=== PATIENT | female | born 1940 | race African-American/Black ===

== ENCOUNTER 2016-06-03 13:00 | Inpatient (IN) ==
[2016-06-03 15:00] LABS: Apearance,Urine CLEAR (Clear); Bilirubin,Urine Negative (Negative); Blood, Urine Negative (Negative); Glucose,Urine (UA) 50 mg/dL (Negative); Hyaline Casts,Urine 28 /LPF (0-3); Ketones,Urine 5 mg/dL (Negative); Mucus,Urine Occasional /LPF (Occasional); Nitrite,Urine Negative (Negative); Protein,Urine Negative; RBC,Urine 1 /HPF (0-4); Squamous Epithelial Cell,Urine Occasional /HPF (0-10); Urine Color Yellow (Yellow); Urine Specific Gravity 1.019 (1.001-1.035); Urine Urobilinogen < 2.0 EU/DL (0.2-1.0); WBC,Urine <1 /HPF (0-6)
[2016-06-03 15:00] LABS: Basophils % 0.3 % (0.0-0.8); Eosinophils # 0.1 10*3/uL (0.0-0.87); Eosinophils % 1.7 % (0.00-10.9); Hematocrit 37.4 VOL% (35.7-47.0); Immature Granulocytes % 0.3 %; Immature Granulocytes Absolute 0.02 #; Lymphocytes # 2.9 10*3/uL (1.4-4.0); Lymphocytes % 38.1 % (21.3-54.2); Mean Corpuscular HGB Conc 32.1 GM/DL (32-36); Mean Corpuscular Hemoglobin 28 PG (27-34); Mean Platelet Volume 11.4 FL (9.6-12.0); Monocytes # 0.7 10*3/uL (0.11-0.8); Monocytes % 9.1 % (1.7-12.7); Neutrophils # 3.8 10*3/uL (1.4-7.4); Neutrophils % 50.5 % (38.7-73.9); Platelet Count 228 T/CUMM (130-400); Red Blood Count 4.35 MC/CUMM (3.8-5.5); White Blood Count 7.5 T/CUMM (4-12)
[2016-06-03 15:13] LABS: Albumin 3.3 G/DL (3.4-5.0); Bilirubin,Total 0.4 MG/DL (0.2-1.0); Calcium 8.2 MG/DL (8.5-10.1); Potassium 5.8 MMOL/L (3.5-5.1); Total Protein 6.5 G/DL (6.4-8.3)
--- NOTE | 2016-06-03 15:42 | Emergency Department Note ---
Arrival - Arrival Chief Complaint: Urogenital - Female Stated Complaint: abd swollen and painful ED Nursing Triage Note: PT C/O LOWER ABD PAIN AND LOWER BACK PAIN. PT STATES SHE IS UNABLE TO VOID. STATES VOIDED ONCE YESTERDAY AND ONCE THIS AM. DENIES DYSURIA OR HEMATURIA. PT STATES HAS BEEN TAKING BACTRIM SHE HAS AT HOME. Mode of Arrival: Wheelchair Limitations: No Limitations Source: Patient, Family Time Seen by Provider: 06/03/16 13:49 - History of Present Illness HPI Narrative: 75yo black female presents to ED with CC of unable to void x 1 day, she voided once yesterday and once this morning prior to coming to the ED. Accompanied by family member. Symptoms are constant, she denies dysuria or hematuria. She describes the pain as a 6 on a 1-10 scale. [PCP is ALLEN Sandoval. Pt has not consulted PCP about these symptoms. PMHx significant for hypertension, coronary artery disease, with CABG about 12 years ago, insulin-dependent diabetes mellitus. Patient is on a daily dose of Bactrim DS for an unknown reason. Has some constipation, last BM last night, it was normal. Complaining of some abdominal distention and slight abdominal pain. Allergies/Adverse Reactions: Allergies Allergy/AdvReac Type Severity Reaction Status Date / Time No Known Allergies Allergy Verified 06/03/16 13:12 Home Medications: Home Medications Medication Instructions Recorded Confirmed Type Potassium Chloride 20 meq PO DAILY 08/31/15 06/03/16 History Lubiprostone [Amitiza] 24 mcg PO BID 12/05/15 06/03/16 History Pregabalin [Lyrica] 100 mg PO TID PRN 12/05/15 06/03/16 History traZODone [Desyrel] 50 mg PO BEDTIME PRN 12/05/15 06/03/16 History Cetirizine HCl [Cetirizine Tab] 10 mg PO DAILY 02/15/16 06/03/16 History Insulin Aspart Prot/Asp 70/30 20 unit SUBCUT AC BREAKFAST 02/15/16 06/03/16 History [NovoLOG Mix 70/30] Insulin Aspart Prot/Asp 70/30 30 unit SUBCUT AC SUPPER 02/15/16 06/03/16 History [NovoLOG Mix 70/30] Aspirin EC Tab 81 mg PO DAILY #30 tablet 02/16/16 06/03/16 Rx Furosemide Tab [Lasix Tab] 40 mg PO DAILY 05/11/16 06/03/16 History Hydrocodone/Acetaminophen 1 tablet PO BID PRN 05/11/16 06/03/16 History [Hydrocodon-Acetaminoph 7.5-325] Isosorbide Mononitrate [Isosorbide 90 mg PO DAILY 05/11/16 06/03/16 History Mononitrate ER] Meloxicam [Meloxicam] 15 mg PO DAILY 05/11/16 06/03/16 History Lisinopril 10 mg PO DAILY 06/03/16 06/03/16 History Rivastigmine 4.6 mg/24Hr Patch 1 patch TRANSDERM DAILY 06/03/16 06/03/16 History [Exelon 4.6 mg/24 hr Patch] Tizanidine HCl [Zanaflex] 4 mg PO DIRECTED PRN 06/03/16 06/03/16 History Review of System - Review of System 12 point system: reviewed and no additional remarkable complaints except as stated - Review of System Gastrointestinal: Present: abdominal pain, other Genitourinary female: Present: other (oligouria) Medical,Surgical,& Family Hx - Medical History Cardio: History of: CAD (CABG 12 years ago), Hypertension Neurology: No history of: Seizures Endocrine: History of: Diabetes Mellitus (IDDM) Musculoskeletal: History of: Musculoskeletal Problems - Surgical History Cardiac Surgeries: Sugical HX of: Cardiac Surgery (CABG x 12 yrs ago) - Social History Smoking Status: Never smoker Frequency of Alcohol Use: None Type of Drug Use: None Functional capacity: independent ambulation Exam Physical Examination: Exam - General General appearance: alert, in no apparent distress - Head Head exam: Present: atraumatic, normocephalic - Eye Eye exam: Present: normal appearance, PERRL, EOMI - ENT ENT exam: Present: normal exam, normal oropharynx, mucous membranes moist - Neck Neck exam: Present: normal inspection, full ROM - Chest Chest inspection: Present: normal inspection, symmetric chest wall rise - Respiratory Respiratory exam: Present: normal lung sounds bilaterally. Absent: rales, rhonchi, wheezes - Cardiovascular Cardiovascular exam: Present: regular rate, normal rhythm, normal heart sounds - Abdominal Exam Abdominal exam: Present: soft, normal bowel sounds. slight distension present, slight tenderness to palpation - Extremities Exam Extremities exam: Present: normal inspection, full ROM - Back Exam Back exam: Present: normal inspection - Neurological Exam Neurological exam: Present: alert, oriented X3 - Psychiatric Psychiatric exam: Present: normal affect, normal mood - Skin Skin exam: Present: warm, dry, intact Vital Signs: Vital Signs Temperature 97.4 F L 06/03/16 17:32 Pulse Rate 75 06/03/16 17:32 Respiratory Rate 18 06/03/16 17:32 Blood Pressure 116/69 06/03/16 17:32 O2 Sat by Pulse Oximetry 98 06/03/16 17:32 Course - Consultations Time: 15:45 (Hospitalist service notified of patient) Time: 16:10 (Hospitalist service here to evaluate patient) Results - Labs CBC & BMP: 06/03/16 13:45 06/03/16 13:45 Lab Results: I have reviewed the patients labs Labs: Laboratory Tests 06/03/16 14:47 Urine Color Yellow Urine Appearance Clear Urine pH 5.0 Ur Specific [place] 1.019 Urine Protein Negative Urine Glucose (UA) 50 Urine Ketones 5 Urine Blood Negative Urine Nitrate Negative Urine Bilirubin Negative Urine Urobilinogen < 2.0 H Urine Leukocytes Negative Urine RBC 1 Urine WBC <1 Ur Squamous Epith Cells Occasional Hyaline Casts 28 Urine Mucus Occasional Ur Culture Indicated? Not indicated Disposition Disposition: Still a Patient Condition: Stable
--- NOTE | 2016-06-03 16:56 | Hospitalist History & Physical ---
Assessment and Plan (1) Acute kidney injury Status: Acute Assessment and plan: Patient on lisinopril and bactrim. Believe that this is most likely due to bactrim. Will start IV fluids, check urine electrolytes, renal ultrasound and consult nephrology for assitance. Current Visit: Yes (2) Diabetes mellitus Status: Chronic Assessment and plan: SSI Start NPH while inpatient Current Visit: No (3) Hypertension Status: Chronic Assessment and plan: Home medications Current Visit: No (4) Hyperkalemia Status: Acute Assessment and plan: Will give biarb, insulin and D50 Monitor Current Visit: Yes History of Present Illness Chief complaint: can't pee History of present illness: Ms. Aiken is a 75 year old female with HTN and DM who presented with decreased urination. She noticed decreased urination a couple of days ago. This morning she reports lower abdominal and flank pain. She has not noticed a decrease in her fluid intake. She has been taking bactrim for about a week. She is also on lisinopril. She has a history of kidney stones, which required surgery several years ago. In the ED bladder scan with 21cc of urine. Cr 2.2, K 5.8, bicarb 25 with anion gap of 12. UA with ketones and glucose, no sign of infection. Home Medications Medication Instructions Recorded Confirmed Type Potassium Chloride 20 meq PO DAILY 08/31/15 05/11/16 History Lubiprostone [Amitiza] 8 mcg PO BID 12/05/15 05/11/16 History Pregabalin [Lyrica] 100 mg PO Q8HR 12/05/15 05/11/16 History traZODone [Desyrel] 50 mg PO BEDTIME PRN 12/05/15 05/11/16 History Cetirizine HCl [Cetirizine Tab] 10 mg PO DAILY 02/15/16 05/11/16 History Insulin Aspart Prot/Asp 70/30 20 unit SUBCUT QAM 02/15/16 05/11/16 History [NovoLOG Mix 70/30] Insulin Aspart Prot/Asp 70/30 30 unit SUBCUT QPM 02/15/16 05/11/16 History [NovoLOG Mix 70/30] amLODIPine [Norvasc] 10 mg PO DAILY 02/15/16 05/11/16 History Aspirin EC Tab 81 mg PO DAILY #30 tablet 02/16/16 05/11/16 Rx Furosemide Tab [Lasix Tab] 40 mg PO DAILY 05/11/16 05/11/16 History Hydrocodone/Acetaminophen 1 tablet PO BID PRN 05/11/16 05/11/16 History [Hydrocodon-Acetaminoph 7.5-325] Ibuprofen Tab [Motrin Tab] 600 mg PO QID PRN 05/11/16 05/11/16 History Insulin Regular, Human [NovoLIN R] 0 unit SUBCUT TID 05/11/16 05/11/16 History Insulin Regular, Human [NovoLIN R] 10 units SUBCUT QAM 05/11/16 05/11/16 History Isosorbide Mononitrate [Isosorbide 60 mg PO DAILY 05/11/16 05/11/16 History Mononitrate ER] Meloxicam [Meloxicam] 15 mg PO DAILY 05/11/16 05/11/16 History Nitroglycerin Sl Tab [Nitrostat] 0.4 mg SL Q5M PRN 05/11/16 05/11/16 History Allergies Allergy/AdvReac Type Severity Reaction Status Date / Time No Known Allergies Allergy Verified 06/03/16 13:12 Medical,Surgical,& Family Hx - Medical History Cardio: History of: CAD (CABG 12 years ago), Hypertension Neurology: No history of: Seizures Endocrine: History of: Diabetes Mellitus (IDDM) Musculoskeletal: History of: Musculoskeletal Problems - Surgical History Cardiac Surgeries: Sugical HX of: Cardiac Surgery (bypass 12 years ago) - Social History Smoking Status: Never smoker Frequency of Alcohol Use: None Type of Drug Use: None - Constitutional Constitutional: Absent: chills, fever(s) - EENT Eyes: Absent: blurry vision, loss of vision Ears: Absent: decreased hearing, ear pain Nose, mouth and throat: Absent: headache(s), nasal congestion - Cardiovascular Cardiovascular: Absent: chest pain at rest, dyspnea on exertion, edema - Respiratory Respiratory: Absent: cough, wheezing - Gastrointestinal Gastrointestinal: Present: abdominal pain. Absent: change in bowel habits, nausea - Genitourinary Genitourinary: Present: difficulty urinating, flank pain. Absent: urinary frequency - Musculoskeletal Musculoskeletal: Absent: back pain, joint swelling - Neurological Neurological: Absent: confusion, dizziness - Psychiatric Psychiatric: Absent: anxiety, depression - Endocrine Endocrine: Absent: cold intolerance, heat intolerance - Hematologic/Lymphatic Hematologic/Lymphatic: Absent: easy bleeding, easy bruising Exam - Constitutional General appearance: over weight - Head Head exam: Present: normocephalic, atraumatic - Eye Eye exam: Present: EOMI Pupils: Present: KIMMY - ENT ENT exam: Present: normal exam - Neck Neck exam: Present: normal inspection - Respiratory Respiratory exam: Present: clear to auscultation bilaterally. Absent: rhonchi, wheezes - Cardiovascular Cardiovascular exam: Present: regular rate and rhythm - GI/Abdominal GI/Abdominal exam: Present: normal bowel sounds, soft. Absent: tenderness, rebound - Extremities Exam Extremities exam: Present: normal inspection - Back Exam Back exam: Present: normal inspection - Neurological Exam Neurological exam: Present: alert, oriented X3 - Psychiatric Psychiatric exam: Present: normal affect, normal mood - Skin Skin exam: Present: warm, intact Results - Labs CBC & BMP: 06/03/16 13:45 06/03/16 13:45
[2016-06-03] MEDS ORDERED: SODIUM BICARBONATE 50 MEQ/50 ML SYRINGE IV ONE (17:24)
[2016-06-03] MEDS ORDERED: DEXTROSE 50% 25 GM/50 ML VIAL IV PRN ×2 (17:24→22:58)
[2016-06-03] MEDS ORDERED: GLUCAGON 1 MG VIAL IM PRN ×2 (17:24→22:58)
[2016-06-03] MEDS ORDERED: DOCUSATE SODIUM 100 MG CAPSULE PO PRN (17:24)
[2016-06-03] MEDS ORDERED: DEXTROSE 50% 25 GM/50 ML VIAL IV ONE (17:24)
[2016-06-03] MEDS ORDERED: INSULIN REGULAR 100 UNIT/ML IV ONE (17:24)
[2016-06-03] MEDS: INSULIN NPH 100 UNIT/ML SUBCUT SCH (17:45)
[2016-06-03 18:03] LABS: Creatinine,Urine Random 315 MG/DL; Potassium,Urine Random 60 MMOL/L
[2016-06-03] MEDS: ENOXAPARIN 30 MG/0.3 ML SYRINGE SUBCUT SCH (18:45)
[2016-06-03] MEDS: SODIUM CHLORIDE 0.9% 1,000 ML IV SCH (18:45)
--- NOTE | 2016-06-03 21:13 | Ultrasound Report ---
Exam: US renal Bilateral Date: 06/03/2016 5:24 PM Indication: Acute kidney injury Comparison: None Findings: Right kidney. 8.9 x 4.2 x 4.5 cm. No hydronephrosis or perinephric fluid collections or focal mass present. Left kidney. 9.7 x 4.6 x 4.2 cm. No hydronephrosis perinephric fluid collections. Mild increased echogenicity of the kidneys bilaterally. Impression: 1. Mild medical renal disease without obstructive uropathy. Ultrasound images were stored and captured PROCEDURE INTERPRETED AT [facility] DEPARTMENT OF RADIOLOGY Final Report Signed by: Dr. Tez Dawn
[2016-06-03] MEDS: INSULIN REGULAR 100 UNIT/ML SUBCUT SCH (23:10)
[2016-06-04] MEDS: SODIUM CHLORIDE 0.9% 1,000 ML IV SCH ×2 (05:15→11:11)
[2016-06-04 06:38] LABS: Basophils % 0.3 % (0.0-0.8); Eosinophils # 0.2 10*3/uL (0.0-0.87); Eosinophils % 2.4 % (0.00-10.9); Hematocrit 34.8 VOL% (35.7-47.0); Hemoglobin 11.2 GM/DL (12.0-16.0); Immature Granulocytes % 0.3 %; Immature Granulocytes Absolute 0.02 #; Lymphocytes # 2.6 10*3/uL (1.4-4.0); Lymphocytes % 35.9 % (21.3-54.2); Mean Corpuscular HGB Conc 32.2 GM/DL (32-36); Mean Corpuscular Hemoglobin 28 PG (27-34); Mean Corpuscular Volume 86.4 FL (87-102); Monocytes # 0.7 10*3/uL (0.11-0.8); Monocytes % 9.5 % (1.7-12.7); Neutrophils # 3.7 10*3/uL (1.4-7.4); Neutrophils % 51.6 % (38.7-73.9); Platelet Count 204 T/CUMM (130-400); Red Blood Count 4.03 MC/CUMM (3.8-5.5); Red Cell Distribution Width 14.1 % (9.3-17.3); White Blood Count 7.1 T/CUMM (4-12)
[2016-06-04 07:13] LABS: Osmolality,Calculated 293.4 MOS/KG (273-304); Potassium 5.4 MMOL/L (3.5-5.1); Thyroid Stimulating Hormone 3.35 uIU/ml (0.358-3.74)
[2016-06-04] MEDS: ASPIRIN EC 81 MG TABLET PO SCH (08:42)
[2016-06-04] MEDS: ISOSORBIDE MONONITRATE 60 MG TABLET PO SCH (08:42)
[2016-06-04] MEDS: PANTOPRAZOLE 40 MG TABLET PO SCH (08:42)
[2016-06-04] MEDS: INSULIN REGULAR 100 UNIT/ML SUBCUT SCH ×4 (08:44→20:53)
[2016-06-04] MEDS: INSULIN NPH 100 UNIT/ML SUBCUT SCH ×2 (08:48→16:45)
--- NOTE | 2016-06-04 09:59 | Hospitalist Progress Note ---
Assessment and Plan (1) Acute kidney injury Status: Acute Assessment and plan: Patient on lisinopril and bactrim. Believe that this is most likely due to bactrim. Continue IV fluids renal ultrasound with no obstruction consult nephrology for assitance. Current Visit: Yes (2) Diabetes mellitus Status: Chronic Assessment and plan: SSI Increase NPH while inpatient Current Visit: No (3) Hypertension Status: Chronic Assessment and plan: Home medications Current Visit: No (4) Hyperkalemia Status: Acute Assessment and plan: Monitor Current Visit: Yes Hospitalist: Subjective Interval history: Patient feels better today. Pain is improving. Creatinine and urine output are both improving. Renal ultrasound without signs of obstruction. Potassium slightly better. Will continue IV fluids. FSG elevated, increase insulin. Exam - Constitutional Vitals: Period Temp Pulse Resp BP Sys/Becerra Pulse Ox Last 24 Hr 97.4 F-98.2 F 75-83 18-18 116-166/69-91 98-99 General appearance: over weight - Head Head exam: Present: normocephalic, atraumatic - Eye Eye exam: Present: EOMI Pupils: Present: KIMMY - ENT ENT exam: Present: normal exam - Neck Neck exam: Present: normal inspection - Respiratory Respiratory exam: Present: clear to auscultation bilaterally. Absent: rhonchi, wheezes - Cardiovascular Cardiovascular exam: Present: regular rate and rhythm - GI/Abdominal GI/Abdominal exam: Present: normal bowel sounds, soft. Absent: tenderness, rebound - Extremities Exam Extremities exam: Present: normal inspection - Back Exam Back exam: Present: normal inspection - Neurological Exam Neurological exam: Present: alert, oriented X3 - Psychiatric Psychiatric exam: Present: normal affect, normal mood - Skin Skin exam: Present: warm, intact Results - Labs CBC & BMP: 06/04/16 06:08 06/04/16 06:08
--- NOTE | 2016-06-04 11:08 | CT Report ---
Exam: CT scan of brain without contrast Date: 06/04/2016 Indication: Dizziness Comparison: None Patient's classification: Emergency department Technical: Images were obtained from the skull base to the vertex without the use of intravenous contrast. Dose reduction was performed with decreasing kv and mA and automated exposure Total DLP: 1073.1 mGy*cm Findings: Atrophy present within the cerebellum and cerebral hemispheres. A cavum septum pellucida and cavum vergae is present. The ventricles are slightly prominent. Small vessel changes are present. This calcification in the falx cerebri present. The paranasal sinuses globes and cell and mastoids are otherwise unremarkable. Vascular plaque within the vertebral and internal carotid arteries. Impression: 1. Small vessel ischemic change and atrophy 2. No acute hemorrhage infarction or mass effect PROCEDURE INTERPRETED AT [facility] DEPARTMENT OF RADIOLOGY Final Report Signed by: Dr. Tez Dawn
[2016-06-04] MEDS: SODIUM BICARB INJ 100 MEQ in STERILE WATER INJ 1,000 ML IV SCH (11:38)
--- NOTE | 2016-06-04 13:33 | Nephrology Consult Note ---
History of Present Illness Chief complaint: Pt referred for JONI and hyperkalemia. History of present illness: Ms. Aiken is a 75 year old female recently started on bactrim x 1 week ago, on lisinopril. Admits to some dry nonproductive cough, worse at night when she lies down c/w ACEI associated cough. DM2 x 30yrs with report of proliferative diabetic retinopathy s/p laser coag. Creatinine improved to 1.7 from 2.2 on admit. K improved. Baseline creatinine 1.2 for eGFR 52cc/min. Renal u/s R 8.9cm , L 9.7cm, increased echogenicity, no mass, cyst, stone, hydro. UA SG 1.019, pH 5.0, glucose 50, ketone 5, no WBCs/RBCs. Home Medications Medication Instructions Recorded Confirmed Type Potassium Chloride 20 meq PO DAILY 08/31/15 06/03/16 History Lubiprostone [Amitiza] 24 mcg PO BID 12/05/15 06/03/16 History Pregabalin [Lyrica] 100 mg PO TID PRN 12/05/15 06/03/16 History traZODone [Desyrel] 50 mg PO BEDTIME PRN 12/05/15 06/03/16 History Cetirizine HCl [Cetirizine Tab] 10 mg PO DAILY 02/15/16 06/03/16 History Insulin Aspart Prot/Asp 70/30 20 unit SUBCUT AC BREAKFAST 02/15/16 06/03/16 History [NovoLOG Mix 70/30] Insulin Aspart Prot/Asp 70/30 30 unit SUBCUT AC SUPPER 02/15/16 06/03/16 History [NovoLOG Mix 70/30] Aspirin EC Tab 81 mg PO DAILY #30 tablet 02/16/16 06/03/16 Rx Furosemide Tab [Lasix Tab] 40 mg PO DAILY 05/11/16 06/03/16 History Hydrocodone/Acetaminophen 1 tablet PO BID PRN 05/11/16 06/03/16 History [Hydrocodon-Acetaminoph 7.5-325] Isosorbide Mononitrate [Isosorbide 90 mg PO DAILY 05/11/16 06/03/16 History Mononitrate ER] Meloxicam [Meloxicam] 15 mg PO DAILY 03/09/17 04/01/17 History Lisinopril 10 mg PO DAILY 06/03/16 06/03/16 History Rivastigmine 4.6 mg/24Hr Patch 1 patch TRANSDERM DAILY 06/03/16 06/03/16 History [Exelon 4.6 mg/24 hr Patch] Tizanidine HCl [Zanaflex] 4 mg PO DIRECTED PRN 06/03/16 06/03/16 History Allergies Allergy/AdvReac Type Severity Reaction Status Date / Time No Known Allergies Allergy Verified 06/03/16 13:12 Medical,Surgical,& Family Hx - Medical History Cardio: History of: CAD (CABG 12 years ago), Hypertension Neurology: No history of: Seizures Endocrine: History of: Diabetes Mellitus (IDDM) Genitourinary: History of: Kidney Stones Musculoskeletal: History of: Musculoskeletal Problems - Surgical History Cardiac Surgeries: Sugical HX of: Cardiac Surgery (CABG x 12 yrs ago) Thoracic Surgeries: Surgical HX of;: Lithotripsy Orthopedic Surgeries: Surgical HX of;: Orthopedic Surgery (fx foot repair with plates and pins), Total Knee Replacement - Family History Family History: Reports;: Family Diabetes (father), Family Heart Disease (father ), Family Hypertension (father) Denies;: Family Anesthesia Reaction, Family Cancer, Family Hematology, Family Psychiatric Problems, Family Stroke, Additional Family History - Social History Smoking Status: Never smoker Frequency of Alcohol Use: None Type of Drug Use: None Exam - Vital Signs Vital signs: Period Temp Pulse Resp BP Sys/Becerra Pulse Ox Last 24 Hr 97.4 F-98.2 F 75-83 18-18 116-166/69-91 98-99 - General Appearance General appearance: well-developed, obese EENT: ATNC, PERRL, mucous membranes moist, hearing intact, vision intact Neck: no JVD, no thyromegaly Respiratory: no kyphosis, clear Cardiology: no murmurs, no rub, no edema Gastrointestinal: normoactive bowel sounds, no tenderness Integumentary: no rash, warm and dry Neurologic: no focal deficit, no asterixis, alert and oriented x3 Musculoskeletal: no deformities, no erythema Psychiatric: mood/affect appropriate, cooperative Results - Labs CBC & BMP: 06/04/16 06:08 06/04/16 06:08 Assessment and Plan (1) Blood creatinine increased compared with prior measurement Problem details: A known effect of bactrim with competitive inhibition of secretion in renal tubule. No indication of acute kidney injury. Status: Acute Current Visit: Yes (2) Hyperkalemia Problem details: Improved. A known side effect of the potassium sparing diuretic effects of the triamterene component of TMP/SMX with multiple reports of fatal hyperkalemia after its administration. Status: Acute Assessment and plan: IVFs changed to shift K back intracellularly. Strict renal diet, (low K, low phos). [employer] referral for diet education. Current Visit: Yes (3) CKD stage 3 due to type 2 diabetes mellitus Problem details: Most likely due to diabetic nephropathy (94% of pts with proliferative diabetic retinopathy also have diabetic nephropathy). Status: Acute Assessment and plan: Will sign off case at this time. Please schedule nephrology outpatient appt with me in 3-4 weeks after discharge. Renal function panel, UA, CBC, iron, PTH, vit D at that appt. Fasting not required. Thanks for the consult. Current Visit: Yes (4) Diabetes mellitus Problem details: Goal A1C <7% Status: Chronic Current Visit: No Qualifiers: Diabetic retinopathy severity: with proliferative retinopathy (5) Hypertension Problem details: Primary indication for ACEI or ARB. Sxs c/w ACEI associated cough. Avoid in future. Enter allergy in records. Start ARB, low dose for renoprotection and antiproteinuric effects. Losartan 25-50mg po daily would be appropriate. Goal BP <130/80 at all times without orthostasis. Status: Chronic Current Visit: No
[2016-06-04] MEDS ORDERED: oxyCODONE IR 5 MG TABLET PO PRN (15:17)
[2016-06-04] MEDS ORDERED: ACETAMINOPHEN 325 MG TABLET PO PRN (15:17)
[2016-06-04] MEDS: ENOXAPARIN 30 MG/0.3 ML SYRINGE SUBCUT SCH (17:24)
[2016-06-05] MEDS ORDERED: FAMOTIDINE 20 MG/2 ML VIAL IV ONE (05:51)
[2016-06-05] MEDS ORDERED: diphenhydrAMINE 50 MG/1 ML VIAL IV ONE (05:52)
[2016-06-05] MEDS ORDERED: methylPREDNISolone SOD SUC 125 MG/2 ML VIAL IV ONE (06:00)
[2016-06-05] MEDS: ONDANSETRON 4 MG/2 ML VIAL IV PRN (06:02)
[2016-06-05 06:18] LABS: Basophils % 0.2 % (0.0-0.8); Eosinophils # 0.2 10*3/uL (0.0-0.87); Eosinophils % 3.2 % (0.00-10.9); Hematocrit 36.2 VOL% (35.7-47.0); Immature Granulocytes % 0.2 %; Immature Granulocytes Absolute 0.01 #; Lymphocytes # 1.9 10*3/uL (1.4-4.0); Lymphocytes % 30.8 % (21.3-54.2); Mean Corpuscular HGB Conc 33.1 GM/DL (32-36); Mean Corpuscular Hemoglobin 27 PG (27-34); Mean Corpuscular Volume 82.5 FL (87-102); Mean Platelet Volume 11.7 FL (9.6-12.0); Monocytes # 0.6 10*3/uL (0.11-0.8); Monocytes % 9.9 % (1.7-12.7); Neutrophils # 3.5 10*3/uL (1.4-7.4); Neutrophils % 55.7 % (38.7-73.9); Platelet Count 213 T/CUMM (130-400); Red Blood Count 4.39 MC/CUMM (3.8-5.5); Red Cell Distribution Width 13.6 % (9.3-17.3); White Blood Count 6.3 T/CUMM (4-12)
[2016-06-05 06:55] LABS: Albumin 3.3 G/DL (3.4-5.0); Calcium 8.2 MG/DL (8.5-10.1); Phosphorous 2.6 MG/DL (2.5-4.9); Potassium 4.7 MMOL/L (3.5-5.1)
[2016-06-05 07:03] LABS: Folate 7.6 NG/ML (5.4-24.0)
[2016-06-05] MEDS: SODIUM BICARB INJ 100 MEQ in STERILE WATER INJ 1,000 ML IV SCH ×3 (07:42→17:31)
[2016-06-05] MEDS: INSULIN REGULAR 100 UNIT/ML SUBCUT SCH ×4 (09:26→22:01)
[2016-06-05 09:28] LABS: Risk Ratio 4.58; VLDL CHOLESTEROL 32.2 MG/DL
[2016-06-05] MEDS: ASPIRIN EC 81 MG TABLET PO SCH (09:32)
[2016-06-05] MEDS: ISOSORBIDE MONONITRATE 60 MG TABLET PO SCH (09:32)
[2016-06-05] MEDS: PANTOPRAZOLE 40 MG TABLET PO SCH (09:33)
[2016-06-05] MEDS ORDERED: hydrALAZINE 20 MG/1 ML VIAL IV PRN (09:48)
[2016-06-05] MEDS: LOSARTAN 25 MG TABLET PO SCH (10:26)
--- NOTE | 2016-06-05 11:15 | Hospitalist Progress Note ---
Assessment and Plan (1) Acute kidney injury Status: Acute Assessment and plan: Patient on lisinopril and bactrim. Believe that this is most likely due to bactrim. Continue IV fluids renal ultrasound with no obstruction Nephrology will f/u in clinic 3-4 weeks after discharge. Current Visit: Yes (2) Diabetes mellitus Problem details: Goal A1C <7% Status: Chronic Assessment and plan: SSI Increase NPH while inpatient Current Visit: No Qualifiers: Diabetic retinopathy severity: with proliferative retinopathy (3) Hypertension Problem details: Primary indication for ACEI or ARB. Sxs c/w ACEI associated cough. Avoid in future. Enter allergy in records. Start ARB, low dose for renoprotection and antiproteinuric effects. Losartan 25-50mg po daily would be appropriate. Goal BP <130/80 at all times without orthostasis. Status: Chronic Assessment and plan: Start valsartan Current Visit: No (4) Hyperkalemia Problem details: Improved. A known side effect of the potassium sparing diuretic effects of the triamterene component of TMP/SMX with multiple reports of fatal hyperkalemia after its administration. Status: Resolved Current Visit: Yes Hospitalist: Subjective Interval history: Overnight patient's daughter reports an episode of dizziness, confusion and nausea. This morning patient feels better, still feeling lightheaded though. CT head yesterday with microvascular ischemia. Will obtain a MRI today. Blood pressure also elevated this am, not sure if this was during the episode or after. Start lipitor and valsartan. Renal function is much improved. Exam - Constitutional Vitals: Period Temp Pulse Resp BP Sys/Becerra Pulse Ox Last 24 Hr 97.0 F-98.3 F 77-93 18-20 136-196/69-112 96-99 General appearance: over weight - Head Head exam: Present: normocephalic, atraumatic - Eye Eye exam: Present: EOMI Pupils: Present: KIMMY - ENT ENT exam: Present: normal exam - Neck Neck exam: Present: normal inspection. Absent: tenderness - Respiratory Respiratory exam: Present: clear to auscultation bilaterally. Absent: rhonchi, wheezes - Cardiovascular Cardiovascular exam: Present: regular rate and rhythm - GI/Abdominal GI/Abdominal exam: Present: normal bowel sounds, soft. Absent: tenderness, rebound - Extremities Exam Extremities exam: Present: normal inspection - Back Exam Back exam: Present: normal inspection - Neurological Exam Neurological exam: Present: alert, oriented X3 - Psychiatric Psychiatric exam: Present: normal affect, normal mood - Skin Skin exam: Present: warm, intact Results - Labs CBC & BMP: 06/05/16 04:29 06/05/16 04:29
[2016-06-05] MEDS ORDERED: PREGABALIN 100 MG CAPSULE PO PRN (11:19)
[2016-06-05] MEDS: INSULIN NPH 100 UNIT/ML SUBCUT SCH ×2 (13:05→17:32)
[2016-06-05] MEDS: RIVASTIGMINE 4.6 MG/24 HR PATCH TRANSDERM SCH (13:07)
--- NOTE | 2016-06-05 16:50 | Magnetic Resonance Report ---
Referring physician: Jaimee Conti MD Exam: MRI brain with and without contrast Date: June 05, 2016 Comparison: CT brain without contrast June 04, 2016 Reason: Dizziness and confusion Technique: MRI of the brain was performed with and without the use of 20 cc of IV Dotarem contrast. Obtained precontrast images include sagittal T1, axial diffusion-weighted, axial FLAIR, axial T2, axial gradient and axial T1 sequences. Postcontrast sequences include axial and coronal T1 sequences. A 1.5 Shelli magnet was used. Findings: There is mild to moderate generalized cerebral atrophy/volume loss. Scattered small areas of T2/FLAIR hyperintensity are seen within the cerebral white matter bilaterally. This is nonspecific but likely represents mild chronic microvascular ischemic change. No hydrocephalus or midline shift is present. 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 There is no evidence of recent intracranial hemorrhage, abnormal mass effect or acute infarction. No abnormal extra-axial fluid collection is identified, and major vascular flow voids are visualized. No suspicious intracranial enhancement is seen. The patient is likely status post cataract surgery. The orbits, sella and brainstem are otherwise unremarkable. There is mild mucosal thickening within the right frontoethmoidal recess. The mastoid air cells are clear. Impression: 1. No acute intracranial process is identified. 2. There is mild to moderate generalized cerebral atrophy/volume loss and probable mild chronic microvascular ischemic change. PROCEDURE INTERPRETED AT [facility] DEPARTMENT OF RADIOLOGY Final Report Signed by: Dr. Souleymane Nielsen
[2016-06-05] MEDS: ENOXAPARIN 30 MG/0.3 ML SYRINGE SUBCUT SCH (17:33)
[2016-06-05] MEDS: ATORVASTATIN 10 MG TABLET PO SCH (20:32)
[2016-06-05] MEDS: traZODone 50 MG TABLET PO PRN (20:34)
[2016-06-06] MEDS: SODIUM BICARB INJ 100 MEQ in STERILE WATER INJ 1,000 ML IV SCH ×3 (03:21→20:03)
[2016-06-06 03:58] LABS: Albumin 3.2 G/DL (3.4-5.0); Calcium 8.4 MG/DL (8.5-10.1); Osmolality,Calculated 283.8 MOS/KG (273-304); Phosphorous 2.2 MG/DL (2.5-4.9); Potassium 4.1 MMOL/L (3.5-5.1)
[2016-06-06 04:00] LABS: Calcium 8.8 MG/DL (8.5-10.1); Magnesium 2.2 MG/DL (1.8-2.4); Osmolality,Calculated 282.8 MOS/KG (273-304); Potassium 4.1 MMOL/L (3.5-5.1)
[2016-06-06] MEDS ORDERED: INSULIN NPH 100 UNIT/ML SUBCUT SCH ×2 (07:58→10:58)
[2016-06-06] MEDS: ONDANSETRON 4 MG/2 ML VIAL IV PRN (08:44)
[2016-06-06] MEDS: INSULIN REGULAR 100 UNIT/ML SUBCUT SCH ×4 (09:19→22:39)
[2016-06-06] MEDS: ASPIRIN EC 81 MG TABLET PO SCH (09:20)
[2016-06-06] MEDS: ISOSORBIDE MONONITRATE 60 MG TABLET PO SCH (09:20)
[2016-06-06] MEDS: PANTOPRAZOLE 40 MG TABLET PO SCH (09:20)
[2016-06-06] MEDS: RIVASTIGMINE 4.6 MG/24 HR PATCH TRANSDERM SCH (09:21)
[2016-06-06] MEDS: LOSARTAN 25 MG TABLET PO SCH (09:21)
[2016-06-06] MEDS: INSULIN NPH 100 UNIT/ML SUBCUT SCH ×2 (13:02→17:43)
[2016-06-06] MEDS ORDERED: LACTULOSE 20 GM/30 ML UDCUP PO PRN (13:22)
--- NOTE | 2016-06-06 13:28 | Hospitalist Progress Note ---
Assessment and Plan (1) Acute kidney injury Status: Acute Assessment and plan: Patient on lisinopril and bactrim. Believe that this is most likely due to bactrim. Continue IV fluids renal ultrasound with no obstruction Nephrology will f/u in clinic 3-4 weeks after discharge. Current Visit: Yes (2) Diabetes mellitus Problem details: Goal A1C <7% Status: Chronic Assessment and plan: SSI Increase NPH while inpatient Current Visit: No Qualifiers: Diabetic retinopathy severity: with proliferative retinopathy (3) Hypertension Problem details: Primary indication for ACEI or ARB. Sxs c/w ACEI associated cough. Avoid in future. Enter allergy in records. Start ARB, low dose for renoprotection and antiproteinuric effects. Losartan 25-50mg po daily would be appropriate. Goal BP <130/80 at all times without orthostasis. Status: Chronic Assessment and plan: Start valsartan Current Visit: No (4) Hyperkalemia Problem details: Improved. A known side effect of the potassium sparing diuretic effects of the triamterene component of TMP/SMX with multiple reports of fatal hyperkalemia after its administration. Status: Resolved Assessment and plan: Monitor Current Visit: Yes Hospitalist: Subjective Interval history: Family reports waxing and waning confusion. Has been going on for several months but now acutely worse. CT and MRI without acute process. No signs of obvious infection, tsh wnl, electrolytes stable, b12 wnl. Per history sounds like patient might have mild dementia with associated inpatient delirium. On my exam patient is oriented x3. Patient also with nausea and vomiting. No bowel movement in 3 days. Will add lactulose and obtain a KUB. Exam - Constitutional Vitals: Period Temp Pulse Resp BP Sys/Becerra Pulse Ox Last 24 Hr 97.5 F-98.2 F 82-95 18-20 138-185/77-100 96-97 General appearance: over weight - Head Head exam: Present: normocephalic, atraumatic - Eye Eye exam: Present: EOMI Pupils: Present: KIMMY - ENT ENT exam: Present: normal exam - Neck Neck exam: Present: normal inspection - Respiratory Respiratory exam: Present: clear to auscultation bilaterally. Absent: rhonchi, wheezes - Cardiovascular Cardiovascular exam: Present: regular rate and rhythm - GI/Abdominal GI/Abdominal exam: Present: normal bowel sounds, soft. Absent: tenderness, rebound - Extremities Exam Extremities exam: Present: normal inspection - Back Exam Back exam: Present: normal inspection - Neurological Exam Neurological exam: Present: alert, oriented X3 - Psychiatric Psychiatric exam: Present: normal affect, normal mood - Skin Skin exam: Present: warm, intact Results - Labs CBC & BMP: 06/05/16 04:29 06/06/16 03:00
[2016-06-06] MEDS ORDERED: PROMETHAZINE 25 MG TABLET PO PRN (13:30)
--- NOTE | 2016-06-06 14:26 | XRay Report ---
Exam: XR KUB Date: 06/06/2016 1:23 PM Indication: Abdominal pain nausea Comparison: 03/02/2016 Technical: Supine abdomen Findings: Previous sternotomy wires present and prior cholecystectomy clips present. Lung bases are otherwise clear Mild compound scoliosis with degenerative lateral marginal osteophytes The liver shadow is intact the spleen and renal shadows are mostly obscured with some vascular plaque suspected in the renal arteries bilaterally. Vascular calcification of the aorta is also present. Multiple phleboliths in the true pelvis. Moderate fecal debris in the right colon. Vascular plaque in the aorta iliac and femoral arteries. Arthritic changes present of the hips bilaterally Impression: 1. Mild constipation 2. Extensive vascular calcinosis 3. No acute intra-abdominal pathology clearly demonstrated this time PROCEDURE INTERPRETED AT [facility] DEPARTMENT OF RADIOLOGY Final Report Signed by: Dr. Tez Dawn
[2016-06-06] MEDS ORDERED: ASPIRIN CHEW 81 MG TABLET PO ONE ×2 (15:50→15:51)
[2016-06-06 16:08] LABS: Basophils % 0.2 % (0.0-0.8); Eosinophils # 0.1 10*3/uL (0.0-0.87); Eosinophils % 0.6 % (0.00-10.9); Hematocrit 34.2 VOL% (35.7-47.0); Hemoglobin 11.4 GM/DL (12.0-16.0); Immature Granulocytes % 0.3 %; Immature Granulocytes Absolute 0.03 #; Lymphocytes # 1.9 10*3/uL (1.4-4.0); Lymphocytes % 19.1 % (21.3-54.2); Mean Corpuscular HGB Conc 33.3 GM/DL (32-36); Mean Corpuscular Hemoglobin 28 PG (27-34); Mean Platelet Volume 10.8 FL (9.6-12.0); Monocytes # 0.9 10*3/uL (0.11-0.8); Monocytes % 8.6 % (1.7-12.7); Neutrophils % 71.2 % (38.7-73.9); Platelet Count 208 T/CUMM (130-400); Red Blood Count 4.07 MC/CUMM (3.8-5.5); Red Cell Distribution Width 13.5 % (9.3-17.3); White Blood Count 9.8 T/CUMM (4-12)
--- NOTE | 2016-06-06 16:16 | XRay Report ---
Exam: XR chest 1V Date: 06/06/2016 3:51 PM Indication: Chest pain Comparison: 03/02/2016 Technical: AP Findings: Cardiomegaly present with previous sternotomy. Mild interstitial edema and tiny low volume left effusion. ASVD is present. Arthritic change present over the shoulders bilaterally. Impression: 1. Cardiomegaly and previous sternotomy with mild interstitial edema and tiny low volume effusion that suggest component of cardiac decompensation CHF PROCEDURE INTERPRETED AT [facility] DEPARTMENT OF RADIOLOGY Final Report Signed by: Dr. Tez Dawn
[2016-06-06 16:31] LABS: Allen Test Positive
[2016-06-06 16:32] LABS: Albumin 3.1 G/DL (3.4-5.0); Bilirubin,Total 0.6 MG/DL (0.2-1.0); Calcium 8.2 MG/DL (8.5-10.1); Osmolality,Calculated 288.7 MOS/KG (273-304); Total Protein 5.9 G/DL (6.4-8.3)
[2016-06-06 16:35] LABS: Apearance,Urine CLEAR (Clear); Bilirubin,Urine Negative (Negative); Blood, Urine Negative (Negative); Glucose,Urine (UA) >=500 mg/dL (Negative); Ketones,Urine Negative (Negative); Nitrite,Urine Negative (Negative); Protein,Urine Negative; Urine Color Straw (Yellow); Urine Specific Gravity 1.008 (1.001-1.035); Urine Urobilinogen < 2.0 EU/DL (0.2-1.0); WBC,Urine 3 /HPF (0-6)
[2016-06-06 16:55] LABS: ABG Base Excess 7.3 MMOL/L (-2.5-2.5); ABG HCO3 30.8 MMOL/L (20-26); ABG Oxygen Saturation 95.5 % (95-100); ABG PCO2 39.6 MM HG (35-48); ABG PH 7.509 (7.35-7.45); ABG PO2 75.8 MM HG (80-95)
[2016-06-06] MEDS: ENOXAPARIN 30 MG/0.3 ML SYRINGE SUBCUT SCH (17:39)
[2016-06-06] MEDS ORDERED: FUROSEMIDE 40 MG/4 ML VIAL IV ONE (18:21)
[2016-06-06 19:44] LABS: Troponin I Only < 0.015 NG/ML (0.00-0.045)
[2016-06-06] MEDS: traZODone 50 MG TABLET PO PRN (21:08)
[2016-06-06] MEDS: ATORVASTATIN 10 MG TABLET PO SCH (21:08)
[2016-06-06 22:17] LABS: Troponin I Only 0.021 NG/ML (0.00-0.045)
[2016-06-07 04:06] LABS: Basophils % 0.2 % (0.0-0.8); Eosinophils # 0.1 10*3/uL (0.0-0.87); Eosinophils % 0.7 % (0.00-10.9); Hematocrit 34.3 VOL% (35.7-47.0); Hemoglobin 11.6 GM/DL (12.0-16.0); Immature Granulocytes % 0.8 %; Immature Granulocytes Absolute 0.07 #; Lymphocytes # 1.9 10*3/uL (1.4-4.0); Mean Corpuscular HGB Conc 33.8 GM/DL (32-36); Mean Corpuscular Hemoglobin 28 PG (27-34); Mean Corpuscular Volume 82.3 FL (87-102); Mean Platelet Volume 11.6 FL (9.6-12.0); Monocytes # 0.8 10*3/uL (0.11-0.8); Monocytes % 9.4 % (1.7-12.7); Neutrophils # 5.8 10*3/uL (1.4-7.4); Neutrophils % 66.9 % (38.7-73.9); Platelet Count 217 T/CUMM (130-400); Red Blood Count 4.17 MC/CUMM (3.8-5.5); Red Cell Distribution Width 13.8 % (9.3-17.3); White Blood Count 8.7 T/CUMM (4-12)
[2016-06-07 04:39] LABS: Albumin 3.4 G/DL (3.4-5.0); Bilirubin,Total 0.8 MG/DL (0.2-1.0); Calcium 8.9 MG/DL (8.5-10.1); Potassium 3.8 MMOL/L (3.5-5.1); Total Protein 5.9 G/DL (6.4-8.3)
[2016-06-07 04:40] LABS: Albumin 3.3 G/DL (3.4-5.0); Calcium 8.9 MG/DL (8.5-10.1); Phosphorous 3.3 MG/DL (2.5-4.9); Potassium 3.8 MMOL/L (3.5-5.1); Potassium 3.9 MMOL/L (3.5-5.1)
[2016-06-07] MEDS: ISOSORBIDE MONONITRATE 60 MG TABLET PO SCH (08:39)
[2016-06-07] MEDS: ASPIRIN EC 81 MG TABLET PO SCH (08:39)
[2016-06-07] MEDS: PANTOPRAZOLE 40 MG TABLET PO SCH (08:40)
[2016-06-07] MEDS: LOSARTAN 25 MG TABLET PO SCH (08:40)
[2016-06-07] MEDS: INSULIN REGULAR 100 UNIT/ML SUBCUT SCH ×4 (08:40→21:40)
[2016-06-07] MEDS: RIVASTIGMINE 4.6 MG/24 HR PATCH TRANSDERM SCH (08:40)
[2016-06-07] MEDS: INSULIN NPH 100 UNIT/ML SUBCUT SCH ×2 (08:40→17:06)
--- NOTE | 2016-06-07 08:48 | XRay Report ---
2 view chest. Indication: Shortness of breath and chest pain. The heart is normal in size. Post median sternotomy. Calcific plaque is present within the aortic knob. The pulmonary vasculature there is mildly prominent but improved. The interstitial lung markings show improvement. No pneumothorax. No pleural effusion. Degenerative changes of the spinal column and shoulders. Impression: Interval improvement. Mild persistent venous congestion. PROCEDURE INTERPRETED AT [facility] DEPARTMENT OF RADIOLOGY Final Report Signed by: Dr. Crystal Fish
--- NOTE | 2016-06-07 09:19 | EKG Report ---
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
--- NOTE | 2016-06-07 09:23 | EKG Report ---
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
--- NOTE | 2016-06-07 09:32 | EKG Report ---
Stationary ECG Study 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
--- NOTE | 2016-06-07 11:40 | Hospitalist Progress Note ---
Assessment and Plan (1) Acute kidney injury Status: Acute Assessment and plan: Patient on lisinopril and bactrim. Believe that this is most likely due to bactrim. Continue IV fluids renal ultrasound with no obstruction Nephrology will f/u in clinic 3-4 weeks after discharge. Current Visit: Yes (2) Diabetes mellitus Problem details: Goal A1C <7% Status: Chronic Assessment and plan: SSI Increase NPH while inpatient Current Visit: Yes Qualifiers: Diabetic retinopathy severity: with proliferative retinopathy (3) Hypertension Status: Chronic Assessment and plan: valsartan Current Visit: No (4) Hyperkalemia Problem details: Improved. A known side effect of the potassium sparing diuretic effects of the triamterene component of TMP/SMX with multiple reports of fatal hyperkalemia after its administration. Status: Resolved Assessment and plan: Monitor Current Visit: Yes (5) Chest pain Status: Acute Current Visit: Yes Hospitalist: Subjective Interval history: No acute events overnight. Denies any more episodes of chest pain. Per chart review, pt has a history of stent placement in 2004. Will consult cardiology for evaluation. Patient's hemoglobin A1C is elevated at 10, will continue adjusting insulin for better control. No bowel movement in ~4 days, lactulose. Increasing valsartan for better blood pressure control. Seems to be tolerating lipitor, will increase today. Exam - Constitutional Vitals: Period Temp Pulse Resp BP Sys/Becerra Pulse Ox Last 24 Hr 97.7 F-98.6 F 80-103 16-20 132-165/79-88 95-98 General appearance: over weight - Head Head exam: Present: normocephalic, atraumatic - Eye Eye exam: Present: EOMI Pupils: Present: KIMMY - ENT ENT exam: Present: normal exam - Neck Neck exam: Present: normal inspection - Respiratory Respiratory exam: Present: clear to auscultation bilaterally. Absent: rhonchi, wheezes - Cardiovascular Cardiovascular exam: Present: regular rate and rhythm - GI/Abdominal GI/Abdominal exam: Present: normal bowel sounds, soft. Absent: tenderness, rebound - Extremities Exam Extremities exam: Present: normal inspection - Back Exam Back exam: Present: normal inspection - Neurological Exam Neurological exam: Present: alert, oriented X3 - Psychiatric Psychiatric exam: Present: normal affect, normal mood - Skin Skin exam: Present: warm, intact Results - Labs CBC & BMP: 06/07/16 02:25 06/07/16 02:25
[2016-06-07] MEDS ORDERED: LOSARTAN 50 MG TABLET PO SCH (11:43)
[2016-06-07] MEDS ORDERED: ATORVASTATIN 20 MG TABLET PO SCH (11:43)
[2016-06-07] MEDS: ONDANSETRON 4 MG/2 ML VIAL IV PRN (14:10)
[2016-06-07] MEDS: ENOXAPARIN 30 MG/0.3 ML SYRINGE SUBCUT SCH (17:33)
--- NOTE | 2016-06-07 20:16 | Cardiology Consult Note ---
IAdriel April RN, am scribing for, and in the presence of, Wade Wallis MD 20:16. Assessment and Plan - Time spent with patient Time spent with patient: Greater than 30 minutes (Due to assessment, planning, documentation, and medication review) (1) Chest pain Status: Acute Assessment and plan: 06/07/2016: Assessment/plan/recommendation: With negative EKG, negative troponins , and reproducible chest pain, it is unlikely that this is CAD, although she has a known history of CAD. Favored to be musculoskeletal, less likely GI related. Plan/recommendation: Treat for muscular skeletal pain-tramadol, Tylenol, gabapentin Follow response be sure patient is on a proton pump inhibitor I will follow along with you. Thank you for allowing me to participate in this patient's care Current Visit: Yes (2) History of coronary artery bypass graft Status: Chronic Current Visit: No (3) Acute kidney injury Status: Acute Current Visit: Yes (4) Coronary artery disease Status: Chronic Current Visit: Yes Qualifiers: Coronary Disease-Associated Artery/Lesion type: bypass graft [place] vs. transplanted heart: [place] heart (5) Diabetes mellitus Problem details: Goal A1C <7% Status: Chronic Current Visit: Yes Qualifiers: Diabetic retinopathy severity: with proliferative retinopathy (6) Dyslipidemia Status: Chronic Current Visit: Yes (7) Hypertension Status: Chronic Current Visit: No History of Present Illness - Data of Consult Patient: known to practice within the last 3 years Consult date: 06/07/16 Requesting Physician: Jaimee Conti - Consult Narrative Reason for consult: Chest pain, history of CAD History of present illness: [employer] Supervisor: Dr. Morales Ms. Aiken is a 75 year old female who is routinely followed by Dr. Morales with a history of CAD, IDDM, hypertension, and dyslipidemia. She had CABG in 2004 with VIERA to the LAD and saphenous vein grafts to right coronary and obtuse marginal. Heart cath in August [address] Morales with the following findings and recommendations: 1: Severe [place] multivessel coronary artery disease 2: 3 of 3 grafts patent with significant distal disease of both the circumflex and of the distal right coronary graft for continued medical management. 3: Normal left ventricular size and systolic function 4: Mynx closure right femoral arteriotomy site Discussion and recommendations: The patient has progressed her disease of the right coronary graft. It supplies a very small distal right and I don't feel that percutaneous intervention of the right graft is get a be of significant benefit to the patient. We will continue medical therapy at this point. We can pursue PCI for medical therapy failure. Otherwise we are planning to continue risk factor modification. Other surgeries include bilateral cataracts, kidney stones, and left foot. Family history is positive for parents and siblings with heart disease, parents and siblings with diabetes, parents and siblings with hypertension, and cancer in siblings. She reports she is a lifetime non-smoker. The patient tells me she presented to the hospital for evaluation on Sunday of constipation, nausea, and vomiting, but the daughter who is at the bedside tells me that she was not able to urinate. The daughter also tells with the patient has some bouts of confusion. The hospitalist is evaluating and treating her constipation, nephrology has been consulted to assist with her kidney issues. We have been asked to see the patient because of chest pain with a known history of CAD. She tells me that she has been having chest pain for a couple of weeks. The episodes did get worse Sunday, and she had a bad episode yesterday. Yesterday she describes a tightness and heaviness in the center of her chest that did not radiate to her arms or neck, but did radiate to her back. She rated as an 8 on a scale of 1-10. She says of the chest pain does get worse with exertion. No specific triggers or alleviators noted. She tells me the pain went away on its own yesterday, but the daughter tells me they gave her for aspirin to chew and it was relieved after that. The daughter is unsure if she had anything besides aspirin given to her. She is also experiencing shortness of breath on exertion since she has been having the chest pain. She denies any shortness of breath at rest or orthopnea. Currently patient is seen resting in bed in no acute distress. Daughter is at bedside. Oxygen is not in use and she denies any shortness of breath. At the current time she denies chest pain, palpitations, or dizziness. Her heart rate has been a little more elevated today than it was on admission, mostly in the 90s but documented up to 103. Her blood pressures have been somewhat elevated. Her creatinine was 2.2 on admission it is down today to 1.0. Troponin has been negative 3. CC: Jaimee Conti MD - Home Medications and Allergies Home Medications: Home Medications Medication Instructions Recorded Confirmed Type Potassium Chloride 20 meq PO DAILY 08/31/15 06/03/16 History Lubiprostone [Amitiza] 24 mcg PO BID 12/05/15 06/03/16 History Pregabalin [Lyrica] 100 mg PO TID PRN 12/05/15 06/03/16 History traZODone [Desyrel] 50 mg PO BEDTIME PRN 12/05/15 06/03/16 History Cetirizine HCl [Cetirizine Tab] 10 mg PO DAILY 02/15/16 06/03/16 History Insulin Aspart Prot/Asp 70/30 20 unit SUBCUT AC BREAKFAST 02/15/16 06/03/16 History [NovoLOG Mix 70/30] Insulin Aspart Prot/Asp 70/30 30 unit SUBCUT AC SUPPER 02/15/16 06/03/16 History [NovoLOG Mix 70/30] Aspirin EC Tab 81 mg PO DAILY #30 tablet 02/16/16 06/03/16 Rx Furosemide Tab [Lasix Tab] 40 mg PO DAILY 05/11/16 06/03/16 History Hydrocodone/Acetaminophen 1 tablet PO BID PRN 05/11/16 06/03/16 History [Hydrocodon-Acetaminoph 7.5-325] Isosorbide Mononitrate [Isosorbide 90 mg PO DAILY 05/11/16 06/03/16 History Mononitrate ER] Meloxicam [Meloxicam] 15 mg PO DAILY 05/11/16 06/03/16 History Lisinopril 10 mg PO DAILY 06/03/16 06/03/16 History Rivastigmine 4.6 mg/24Hr Patch 1 patch TRANSDERM DAILY 06/03/16 06/03/16 History [Exelon 4.6 mg/24 hr Patch] Tizanidine HCl [Zanaflex] 4 mg PO DIRECTED PRN 06/03/16 06/03/16 History Allergies/Adverse Reactions: Allergies Allergy/AdvReac Type Severity Reaction Status Date / Time No Known Allergies Allergy Verified 06/03/16 13:12 - Constitutional Constitutional: Present: as per HPI - EENT Eyes: Absent: blurry vision, loss of vision Ears: Absent: decreased hearing, tinnitus - Cardiovascular Cardiovascular: Present: chest pain at rest, chest pain with activity, dyspnea on exertion, lightheadedness. Absent: diaphoresis, edema, radiating jaw, neck or arm pain, orthopnea, palpitations - Respiratory Respiratory: Present: dyspnea on exertion. Absent: cough, hemoptysis, wheezing - Gastrointestinal Gastrointestinal: Present: constipation, nausea, vomiting. Absent: abdominal pain, diarrhea, hematemesis, hematochezia, melena - Genitourinary Genitourinary: Present: difficulty urinating (Daughter reports this is better). Absent: dysuria, hematuria - Musculoskeletal Musculoskeletal: Present: limited range of motion, muscle weakness - Neurological Neurological: Present: abnormal gait, dizziness, headache(s). Absent: frequent falls, syncope - Psychiatric Psychiatric: Absent: anxiety, depression - Endocrine Endocrine: Present: fatigue - Hematologic/Lymphatic Hematologic/Lymphatic: Absent: easy bleeding, easy bruising Medical,Surgical,& Family Hx - Medical History Cardio: History of: CAD (CABG in 2004), Hypertension Endocrine: History of: Diabetes Mellitus (IDDM), Dyslipidemia Genitourinary: History of: Kidney Stones Musculoskeletal: History of: Musculoskeletal Problems - Surgical History Cardiac Surgeries: Sugical HX of: Cardiac Surgery (CABG in 2004) Thoracic Surgeries: Surgical HX of;: Lithotripsy Orthopedic Surgeries: Surgical HX of;: Orthopedic Surgery (fx foot repair with plates and pins), Total Knee Replacement - Family History Family History: Reports;: Family Cancer (Siblings), Family Diabetes (Parents and sibling), Family Heart Disease (Parents and sibling), Family Hypertension ( Parents and sibling) - Social History Smoking Status: Never smoker Have you smoked in the last 12 months: No Frequency of Alcohol Use: None Type of Drug Use: None Lives With:: Children Functional capacity: uses cane/walker Physical Examination Vital Signs Temp Pulse Resp BP Pulse Ox 97.2 F L 75 18 120/62 97 06/03/16 13:07 06/03/16 13:07 06/03/16 13:07 06/03/16 13:07 06/03/16 13:07 General: Present: Appears Well, No Apparent Distress HEENT: Present: PERRL, Mucus Membranes Moist Neck: Present: Supple Neck, Midline Trachea, No JVD/HJR, No Bruit Cardiac: Present: Reg Rate and Rhythm, No Murmur Lungs: Present: No Wheeze, Rales, Rhonchi. Absent: Oxygen Neuro: Absent: Essential Tremor Abdomen: Present: Soft, Active Bowel Sounds, Non-Tender. Absent: Distended Skin: Present: Clear Musculoskeletal: Present: Decreased Range of Motion Gait: Present: Poor Gait Extremities: Present: No Edema, Normal Upper Extr. Pulses. Absent: Normal Gait , Normal Lower Extr. Pulses (Weight pulses bilaterally) Result/EKG - Labs CBC & BMP: 06/07/16 02:25 06/07/16 02:25 Lab Results: I have reviewed the past 24 hour labs Labs: Laboratory Results - last 24 hr 06/06/16 06/06/16 06/06/16 11:09 15:49 15:57 WBC RBC Hgb Hct MCV MCH MCHC RDW Plt Count MPV Neut % (Auto) Lymph % (Auto) [place] % (Auto) Eos % (Auto) Baso % (Auto) Neut # (Auto) Lymph # (Auto) [place] # (Auto) Eos # (Auto) Baso # (Auto) Immature Gran % Nucleated RBC % Immature Gran # Nucleated RBCs # ABG pH ABG pCO2 ABG pO2 ABG HCO3 ABG Total CO2 ABG O2 Saturation ABG Base Excess FiO2 Sodium Potassium Chloride Carbon Dioxide Anion Gap BUN Creatinine GFR Calculation BUN/Creatinine Ratio Glucose POC Glucose 241 H 324 H Hemoglobin A1c Calculated Osmolality Calcium Phosphorus Magnesium Total Bilirubin AST ALT Alkaline Phosphatase Total Creatine Kinase CK-MB (CK-2) Troponin I 0.015 B-Natriuretic Peptide Total Protein Albumin Globulin Albumin/Globulin Ratio Urine Color Urine Appearance Urine pH Ur Specific [place] Urine Protein Urine Glucose (UA) Urine Ketones Urine Blood Urine Nitrate Urine Bilirubin Urine Urobilinogen Urine Leukocytes Urine WBC Ur Culture Indicated? 06/06/16 06/06/16 06/06/16 15:57 15:57 16:00 WBC 9.8 D RBC 4.07 Hgb 11.4 L Hct 34.2 L MCV 84.0 L MCH 28 MCHC 33.3 RDW 13.5 Plt Count 208 MPV 10.8 Neut % (Auto) 71.2 Lymph % (Auto) 19.1 L [place] % (Auto) 8.6 Eos % (Auto) 0.6 Baso % (Auto) 0.2 Neut # (Auto) 7.0 Lymph # (Auto) 1.9 [place] # (Auto) 0.9 H Eos # (Auto) 0.1 Baso # (Auto) 0.0 Immature Gran % 0.3 Nucleated RBC % 0.0 Immature Gran # 0.03 Nucleated RBCs # 0.00 ABG pH ABG pCO2 ABG pO2 ABG HCO3 ABG Total CO2 ABG O2 Saturation ABG Base Excess FiO2 Sodium 138 Potassium 4.0 Chloride 98 Carbon Dioxide 30 Anion Gap 14.0 BUN 22 H Creatinine 1.20 H GFR Calculation 59 BUN/Creatinine Ratio 18.00 Glucose 298 H POC Glucose Hemoglobin A1c Calculated Osmolality 288.7 Calcium 8.2 L Phosphorus Magnesium 2.0 Total Bilirubin 0.60 AST 9 ALT 12 L Alkaline Phosphatase 83 Total Creatine Kinase CK-MB (CK-2) Troponin I B-Natriuretic Peptide Total Protein 5.9 L Albumin 3.1 L Globulin 2.8 Albumin/Globulin Ratio 1.1 Urine Color Straw Urine Appearance Clear Urine pH 9.0 H Ur Specific [place] 1.008 Urine Protein Negative Urine Glucose (UA) >=500 Urine Ketones Negative Urine Blood Negative Urine Nitrate Negative Urine Bilirubin Negative Urine Urobilinogen < 2.0 H Urine Leukocytes Negative Urine WBC 3 Ur Culture Indicated? Not indicated 06/06/16 06/06/16 06/06/16 16:50 18:58 19:22 WBC RBC Hgb Hct MCV MCH MCHC RDW Plt Count MPV Neut % (Auto) Lymph % (Auto) [place] % (Auto) Eos % (Auto) Baso % (Auto) Neut # (Auto) Lymph # (Auto) [place] # (Auto) Eos # (Auto) Baso # (Auto) Immature Gran % Nucleated RBC % Immature Gran # Nucleated RBCs # ABG pH 7.509 H ABG pCO2 39.6 ABG pO2 75.8 L ABG HCO3 30.8 H ABG Total CO2 32.0 H ABG O2 Saturation 95.5 ABG Base Excess 7.3 H FiO2 28.00 Sodium Potassium Chloride Carbon Dioxide Anion Gap BUN Creatinine GFR Calculation BUN/Creatinine Ratio Glucose POC Glucose 288 H Hemoglobin A1c Calculated Osmolality Calcium Phosphorus Magnesium Total Bilirubin AST ALT Alkaline Phosphatase Total Creatine Kinase 96 CK-MB (CK-2) < 1.0 Troponin I < 0.015 B-Natriuretic Peptide Total Protein Albumin Globulin Albumin/Globulin Ratio Urine Color Urine Appearance Urine pH Ur Specific [place] Urine Protein Urine Glucose (UA) Urine Ketones Urine Blood Urine Nitrate Urine Bilirubin Urine Urobilinogen Urine Leukocytes Urine WBC Ur Culture Indicated? 06/06/16 06/07/16 06/07/16 21:45 02:25 02:25 WBC 8.7 RBC 4.17 Hgb 11.6 L Hct 34.3 L MCV 82.3 L MCH 28 MCHC 33.8 RDW 13.8 Plt Count 217 MPV 11.6 Neut % (Auto) 66.9 Lymph % (Auto) 22.0 [place] % (Auto) 9.4 Eos % (Auto) 0.7 Baso % (Auto) 0.2 Neut # (Auto) 5.8 Lymph # (Auto) 1.9 [place] # (Auto) 0.8 Eos # (Auto) 0.1 Baso # (Auto) 0.0 Immature Gran % 0.8 Nucleated RBC % 0.0 Immature Gran # 0.07 Nucleated RBCs # 0.00 ABG pH ABG pCO2 ABG pO2 ABG HCO3 ABG Total CO2 ABG O2 Saturation ABG Base Excess FiO2 Sodium 136 Potassium 3.9 Chloride 97 L Carbon Dioxide 28 Anion Gap 14.9 BUN 19 H Creatinine 1.00 GFR Calculation 74 BUN/Creatinine Ratio 19.00 Glucose 198 H POC Glucose Hemoglobin A1c Calculated Osmolality 279.0 Calcium 8.9 Phosphorus 3.3 Magnesium Total Bilirubin AST ALT Alkaline Phosphatase Total Creatine Kinase 36 D CK-MB (CK-2) < 1.0 Troponin I 0.021 B-Natriuretic Peptide Total Protein Albumin 3.3 L Globulin Albumin/Globulin Ratio Urine Color Urine Appearance Urine pH Ur Specific [place] Urine Protein Urine Glucose (UA) Urine Ketones Urine Blood Urine Nitrate Urine Bilirubin Urine Urobilinogen Urine Leukocytes Urine WBC Ur Culture Indicated? 06/07/16 06/07/16 06/07/16 02:25 02:25 02:25 WBC RBC Hgb Hct MCV MCH MCHC RDW Plt Count MPV Neut % (Auto) Lymph % (Auto) [place] % (Auto) Eos % (Auto) Baso % (Auto) Neut # (Auto) Lymph # (Auto) [place] # (Auto) Eos # (Auto) Baso # (Auto) Immature Gran % Nucleated RBC % Immature Gran # Nucleated RBCs # ABG pH ABG pCO2 ABG pO2 ABG HCO3 ABG Total CO2 ABG O2 Saturation ABG Base Excess FiO2 Sodium 136 136 Potassium 3.8 3.8 Chloride 96 L 97 L Carbon Dioxide 29 28 Anion Gap 14.8 14.8 BUN 19 H 19 H Creatinine 1.10 H 1.00 GFR Calculation 66 74 BUN/Creatinine Ratio 17.00 19.00 Glucose 197 H 197 H POC Glucose Hemoglobin A1c 10.7 H Calculated Osmolality 278.0 278.0 Calcium 8.9 8.9 Phosphorus Magnesium 2.0 Total Bilirubin 0.80 AST 8 ALT 12 L Alkaline Phosphatase 75 Total Creatine Kinase CK-MB (CK-2) Troponin I B-Natriuretic Peptide Total Protein 5.9 L Albumin 3.4 Globulin 2.5 Albumin/Globulin Ratio 1.3 Urine Color Urine Appearance Urine pH Ur Specific [place] Urine Protein Urine Glucose (UA) Urine Ketones Urine Blood Urine Nitrate Urine Bilirubin Urine Urobilinogen Urine Leukocytes Urine WBC Ur Culture Indicated? 06/07/16 06/07/16 02:25 07:15 WBC RBC Hgb Hct MCV MCH MCHC RDW Plt Count MPV Neut % (Auto) Lymph % (Auto) [place] % (Auto) Eos % (Auto) Baso % (Auto) Neut # (Auto) Lymph # (Auto) [place] # (Auto) Eos # (Auto) Baso # (Auto) Immature Gran % Nucleated RBC % Immature Gran # Nucleated RBCs # ABG pH ABG pCO2 ABG pO2 ABG HCO3 ABG Total CO2 ABG O2 Saturation ABG Base Excess FiO2 Sodium Potassium Chloride Carbon Dioxide Anion Gap BUN Creatinine GFR Calculation BUN/Creatinine Ratio Glucose POC Glucose 216 H Hemoglobin A1c Calculated Osmolality Calcium Phosphorus Magnesium Total Bilirubin AST ALT Alkaline Phosphatase Total Creatine Kinase CK-MB (CK-2) Troponin I B-Natriuretic Peptide 47 Total Protein Albumin Globulin Albumin/Globulin Ratio Urine Color Urine Appearance Urine pH Ur Specific [place] Urine Protein Urine Glucose (UA) Urine Ketones Urine Blood Urine Nitrate Urine Bilirubin Urine Urobilinogen Urine Leukocytes Urine WBC Ur Culture Indicated? - EKG EKG results: interpreted by me EKG shows: sinus rhythm Bimal Adorno Dale, MD, personally performed the services described in this documentation, ascribed by Meliza Morel RN in my presence, and it is both accurate and complete .
[2016-06-07] MEDS: GABAPENTIN 100 MG CAPSULE PO SCH ×2 (21:39→21:46)
[2016-06-07] MEDS: traMADol 50 MG TABLET PO SCH (21:39)
[2016-06-07] MEDS: ACETAMINOPHEN 325 MG TABLET PO SCH (21:44)
[2016-06-08 04:48] LABS: Basophils % 0.1 % (0.0-0.8); Eosinophils # 0.1 10*3/uL (0.0-0.87); Eosinophils % 1.3 % (0.00-10.9); Hematocrit 34.7 VOL% (35.7-47.0); Hemoglobin 11.4 GM/DL (12.0-16.0); Immature Granulocytes % 0.4 %; Immature Granulocytes Absolute 0.04 #; Lymphocytes % 31.4 % (21.3-54.2); Mean Corpuscular HGB Conc 32.9 GM/DL (32-36); Mean Corpuscular Hemoglobin 28 PG (27-34); Mean Corpuscular Volume 84.4 FL (87-102); Monocytes # 1.2 10*3/uL (0.11-0.8); Monocytes % 12.2 % (1.7-12.7); Neutrophils # 5.2 10*3/uL (1.4-7.4); Neutrophils % 54.6 % (38.7-73.9); Platelet Count 231 T/CUMM (130-400); Red Blood Count 4.11 MC/CUMM (3.8-5.5); Red Cell Distribution Width 13.7 % (9.3-17.3); White Blood Count 9.6 T/CUMM (4-12)
[2016-06-08 05:23] LABS: Calcium 8.9 MG/DL (8.5-10.1); Magnesium 2.1 MG/DL (1.8-2.4); Potassium 3.6 MMOL/L (3.5-5.1)
[2016-06-08] MEDS: INSULIN NPH 100 UNIT/ML SUBCUT SCH ×2 (08:42→17:43)
[2016-06-08] MEDS: INSULIN REGULAR 100 UNIT/ML SUBCUT SCH ×4 (08:43→21:02)
[2016-06-08] MEDS: RIVASTIGMINE 4.6 MG/24 HR PATCH TRANSDERM SCH (08:44)
[2016-06-08] MEDS: ISOSORBIDE MONONITRATE 60 MG TABLET PO SCH (08:46)
[2016-06-08] MEDS: traMADol 50 MG TABLET PO SCH ×2 (08:46→20:57)
[2016-06-08] MEDS: ASPIRIN EC 81 MG TABLET PO SCH (08:47)
[2016-06-08] MEDS: PANTOPRAZOLE 40 MG TABLET PO SCH (08:47)
[2016-06-08] MEDS: GABAPENTIN 100 MG CAPSULE PO SCH ×3 (08:47→20:57)
[2016-06-08] MEDS: ACETAMINOPHEN 325 MG TABLET PO SCH ×2 (08:47→20:57)
[2016-06-08] MEDS: SODIUM CHLORIDE 0.9% 1,000 ML IV SCH ×4 (08:51→22:15)
[2016-06-08 13:37] LABS: Calcium 8.4 MG/DL (8.5-10.1)
--- NOTE | 2016-06-08 14:08 | Hospitalist Progress Note ---
Assessment and Plan (1) Acute kidney injury Status: Acute Assessment and plan: Patient on lisinopril and bactrim. Believe that this is most likely due to bactrim. renal ultrasound with no obstruction Nephrology will f/u in clinic 3-4 weeks after discharge. Originally resolved, has now recurred Will hydrate with IV fluids Discharge if improving tomorrow Current Visit: Yes (2) Diabetes mellitus Problem details: Goal A1C <7% Status: Chronic Assessment and plan: SSI NPH while inpatient Current Visit: Yes Qualifiers: Diabetic retinopathy severity: with proliferative retinopathy (3) Hypertension Status: Chronic Assessment and plan: valsartan Current Visit: No (4) Hyperkalemia Problem details: Improved. A known side effect of the potassium sparing diuretic effects of the triamterene component of TMP/SMX with multiple reports of fatal hyperkalemia after its administration. Status: Resolved Assessment and plan: Monitor Current Visit: Yes (5) Chest pain Status: Acute Current Visit: Yes Hospitalist: Subjective Interval history: No acute events overnight. No more chest pain. Evaluated by cardiology, do not believe patient has acs. Patient's creatinine back up this morning. Potassium wnl. Believe that this is most likely due to dehydration secondary to intractable vomiting, which is now resolved. Will hydrate with IV fluids. If better tomorrow, will discharge home. Exam - Constitutional Vitals: Period Temp Pulse Resp BP Sys/Becerra Pulse Ox Last 24 Hr 97.2 F-98.4 F 77-99 16-20 100-136/60-74 93-98 General appearance: over weight - Head Head exam: Present: normocephalic, atraumatic - Eye Eye exam: Present: EOMI Pupils: Present: KIMMY - ENT ENT exam: Present: normal exam - Neck Neck exam: Present: normal inspection - Respiratory Respiratory exam: Present: clear to auscultation bilaterally. Absent: rhonchi, wheezes - Cardiovascular Cardiovascular exam: Present: regular rate and rhythm - GI/Abdominal GI/Abdominal exam: Present: normal bowel sounds, soft. Absent: tenderness, rebound - Extremities Exam Extremities exam: Present: normal inspection - Back Exam Back exam: Present: normal inspection - Neurological Exam Neurological exam: Present: alert, oriented X3 - Psychiatric Psychiatric exam: Present: normal affect, normal mood - Skin Skin exam: Present: warm, intact Results - Labs CBC & BMP: 06/08/16 03:59 06/08/16 12:56
[2016-06-08] MEDS ORDERED: ENOXAPARIN 40 MG/0.4 ML SYRINGE SUBCUT SCH (18:00)
--- NOTE | 2016-06-08 21:20 | Cardiology Progress Note ---
Adriel Adorno April RN, am scribing for, and in the presence of, Wade Wallis MD 21:19. Assessment and Plan (1) Chest pain Status: Acute Assessment and plan: 06/07/2016: Assessment/plan/recommendation:With negative EKG, negative troponins, and reproducible chest pain, it is unlikely that this is CAD, although she has a known history of CAD. Favored to be musculoskeletal, less likely GI related. Plan/recommendation: Treat for muscular skeletal pain-tramadol, Tylenol, gabapentin Follow response be sure patient is on a proton pump inhibitor 06/08/2016: Assessment/plan/recommendation: Her left parasternal chest pain, presumed chest wall pain is gone with medicines. No side effects with medication. However her creatinine has increased significantly. Agree with giving normal saline at 125 cc an hour overnight. We will recheck BMP in a.m. Agree that if renal function is better can be discharged. Current Visit: Yes (2) History of coronary artery bypass graft Status: Chronic Current Visit: No (3) Acute kidney injury Status: Acute Current Visit: Yes (4) Coronary artery disease Status: Chronic Current Visit: Yes Qualifiers: Coronary Disease-Associated Artery/Lesion type: bypass graft [place] vs. transplanted heart: [place] heart (5) Diabetes mellitus Problem details: Goal A1C <7% Status: Chronic Current Visit: Yes Qualifiers: Diabetic retinopathy severity: with proliferative retinopathy (6) Dyslipidemia Status: Chronic Current Visit: Yes (7) Hypertension Status: Chronic Current Visit: No Cardiology - PN: Subj Interval history: Direct Care Specialist: Dr. Morales Ms. Aiken is seen resting in bed in no acute distress with family at bedside. She denies having any further episodes of chest pain. She also denies shortness of breath, palpitations, or dizziness. Vital signs about the night were stable. Creatinine on admission was 2.2, throughout the admission it has grown down, was 1.0 yesterday. Today it is back up to 1.7. Exam (Progress Note) - Constitutional Vitals: Period Temp Pulse Resp BP Sys/Becerra Pulse Ox Last 24 Hr 97.2 F-98.4 F 82-99 16-20 100-155/65-84 94-98 General appearance: no acute distress, morbidly obese - Eye Eye exam: Absent: periorbital swelling, laceration to eyelids - Respiratory Respiratory exam: Present: clear to auscultation bilaterally. Absent: accessory muscle use, chest wall tenderness - Cardiovascular Cardiovascular exam: Present: regular rate and rhythm - GI/Abdominal GI/Abdominal exam: Present: normal bowel sounds, soft. Absent: distended, tenderness - Extremities Exam Extremities exam: Absent: edema - Neurological Exam Neurological exam: Present: alert, oriented X3 - Psychiatric Psychiatric exam: Present: normal affect, normal mood - Skin Skin exam: Present: warm, dry Result/EKG - Labs CBC & BMP: 06/08/16 03:59 06/08/16 12:56 Lab Results: I have reviewed the past 24 hour labs Labs: Laboratory Results - last 24 hr 06/07/16 06/07/16 06/07/16 10:49 15:29 19:15 WBC RBC Hgb Hct MCV MCH MCHC RDW Plt Count MPV Neut % (Auto) Lymph % (Auto) [place] % (Auto) Eos % (Auto) Baso % (Auto) Neut # (Auto) Lymph # (Auto) [place] # (Auto) Eos # (Auto) Baso # (Auto) Immature Gran % Nucleated RBC % Immature Gran # Nucleated RBCs # Sodium Potassium Chloride Carbon Dioxide Anion Gap BUN Creatinine GFR Calculation BUN/Creatinine Ratio Glucose POC Glucose 247 H 206 H 210 H Calculated Osmolality Calcium Magnesium 06/08/16 06/08/16 06/08/16 03:59 03:59 05:07 WBC 9.6 RBC 4.11 Hgb 11.4 L Hct 34.7 L MCV 84.4 L MCH 28 MCHC 32.9 RDW 13.7 Plt Count 231 MPV 11.0 Neut % (Auto) 54.6 Lymph % (Auto) 31.4 [place] % (Auto) 12.2 Eos % (Auto) 1.3 Baso % (Auto) 0.1 Neut # (Auto) 5.2 Lymph # (Auto) 3.0 [place] # (Auto) 1.2 H Eos # (Auto) 0.1 Baso # (Auto) 0.0 Immature Gran % 0.4 Nucleated RBC % 0.0 Immature Gran # 0.04 Nucleated RBCs # 0.00 Sodium 136 Potassium 3.6 Chloride 99 Carbon Dioxide 28 Anion Gap 12.6 BUN 26 H Creatinine 1.70 H GFR Calculation 39 BUN/Creatinine Ratio 15.00 Glucose 74 POC Glucose 142 H Calculated Osmolality 275.0 Calcium 8.9 Magnesium 2.1 04/06/17 04/06/17 07:00 07:48 WBC RBC Hgb Hct MCV MCH MCHC RDW Plt Count MPV Neut % (Auto) Lymph % (Auto) [place] % (Auto) Eos % (Auto) Baso % (Auto) Neut # (Auto) Lymph # (Auto) [place] # (Auto) Eos # (Auto) Baso # (Auto) Immature Gran % Nucleated RBC % Immature Gran # Nucleated RBCs # Sodium Potassium Chloride Carbon Dioxide Anion Gap BUN Creatinine GFR Calculation BUN/Creatinine Ratio Glucose POC Glucose 113 H 159 H Calculated Osmolality Calcium Magnesium Bimal Adorno Dale, MD, personally performed the services described in this documentation, ascribed by Meliza Morel RN in my presence, and it is both accurate and complete .
[2016-06-09] MEDS: SODIUM CHLORIDE 0.9% 1,000 ML IV SCH (06:14)
[2016-06-09 07:16] LABS: Osmolality,Calculated 283.3 MOS/KG (273-304); Potassium 3.9 MMOL/L (3.5-5.1)
[2016-06-09] MEDS: INSULIN REGULAR 100 UNIT/ML SUBCUT SCH ×2 (07:51→11:11)
--- NOTE | 2016-06-09 08:23 | Discharge Summary ---
Hospital Course - Hospital Course Hospital Course: Ms. Aiken is a 75 year old female with HTN and DM who presented with decreased urination. She noticed decreased urination a couple of days ago. This morning she reports lower abdominal and flank pain. She has not noticed a decrease in her fluid intake. She has been taking bactrim for about a week. She is also on lisinopril. She has a history of kidney stones, which required surgery several years ago. In the ED bladder scan with 21cc of urine. Cr 2.2, K 5.8, bicarb 25 with anion gap of 12. UA with ketones and glucose, no sign of infection. Patient was admitted to the hospitalist service for acute kidney injury and hyperkalemia secondary to medications, bactrim. Nephrology was consulted. She was started on IV fluids with bicarb. Her creatinine and potassium responded well, returned to normal. Patient then developed intractable nausea and vomiting with encephalopathy. Her daughter reported that the encephalopathy was new. Work-up including cbc, b12, ct head and mri brain without clear cause. On further discussion with magdiel, who patient lives with, there is report of some underlying dementia. During admission patient also with pressure type chest pain, serial troponins negative and ekg unchanged. Cardiology consulted given her cardiac history, acute coronary syndrome was ruled out, felt the pain was musculoskeletal. Hospital course was further complicated by a bump in her creatinine, felt to be due to dehydration from nausea. This resolved with IV fluids. Creatinine at time of discharge is 1.1. Patient has now reached maximum benefit of inpatient stay and will be discharged home. She will follow-up with nephrology in 3-4 weeks. - Time spent with patient Time with patient DS: Less than 30 minutes Diagnosis - Discharge Diagnosis (1) Acute kidney injury Status: Resolved (2) Diabetes mellitus Status: Chronic (3) Hypertension Status: Chronic (4) Hyperkalemia Status: Resolved (5) Chest pain Status: Resolved (6) Altered mental state Status: Resolved Specialty Discharge - Follow Up or Referrals Follow up with: Phill Hansen MD [Physician] - 1 Month (hospital f/u) Discharge Plan - Discharge Data Condition at Discharge: Stable Discharge Diet: diabetic diet Activity: resume usual activities as tolerated Hygiene: no restrictions Weight Bearing at Discharge: weight bear as tolerated Contact your physician if you experience:: Nausea/Vomiting, Shortness of breath - Discharge Medications New [place]apentin Cap/Tab [Neurontin Cap/Tab] 100 mg PO TID #90 capsule Losartan [Cozaar] 25 mg PO DAILY #30 tablet Continue Potassium Chloride 20 meq PO DAILY Pregabalin [Lyrica] 100 mg PO TID PRN PRN Reason: Pain traZODone [Desyrel] 50 mg PO BEDTIME PRN PRN Reason: Sleep Cetirizine HCl [Cetirizine Tab] 10 mg PO DAILY Meloxicam 15 mg PO DAILY Hydrocodone/Acetaminophen [Hydrocodon-Acetaminoph 7.5-325] 1 tablet PO BID PRN PRN Reason: Pain Rivastigmine 4.6 mg/24Hr Patch [Exelon 4.6 mg/24 hr Patch] 1 patch TRANSDERM DAILY Insulin Aspart Prot/Asp 70/30 [NovoLOG Mix 70/30] 30 unit SUBCUT AC SUPPER Insulin Aspart Prot/Asp 70/30 [NovoLOG Mix 70/30] 20 unit SUBCUT AC BREAKFAST Aspirin EC Tab 81 mg PO DAILY #30 tablet Isosorbide Mononitrate [Isosorbide Mononitrate ER] 90 mg PO DAILY Tizanidine HCl [Zanaflex] 4 mg PO DIRECTED PRN PRN Reason: Leg Cramps Discontinued Lubiprostone [Amitiza] 24 mcg PO BID Furosemide Tab [Lasix Tab] 40 mg PO DAILY Lisinopril 10 mg PO DAILY - Follow Up or Referral - Forms/Instructions Exam - Constitutional Vitals: Period Temp Pulse Resp BP Sys/Becerra Pulse Ox Last 24 Hr 97.2 F-98.1 F 81-86 16-20 100-164/60-80 93-96 General appearance: over weight - Head Head exam: Present: normocephalic, atraumatic - Eye Eye exam: Present: EOMI Pupils: Present: KIMMY - ENT ENT exam: Present: normal exam - Neck Neck exam: Present: normal inspection - Respiratory Respiratory exam: Present: clear to auscultation bilaterally. Absent: rhonchi, wheezes - Cardiovascular Cardiovascular exam: Present: regular rate and rhythm - GI/Abdominal GI/Abdominal exam: Present: normal bowel sounds, soft. Absent: tenderness, rebound - Extremities Exam Extremities exam: Present: normal inspection - Back Exam Back exam: Present: normal inspection - Neurological Exam Neurological exam: Present: alert, oriented X3 - Psychiatric Psychiatric exam: Present: normal affect, normal mood - Skin Skin exam: Present: warm, intact Discharge Results Labs on day of discharge: Labs from last 24 hours 06/09/16 06/09/16 06/08/16 07:17 06:14 19:29 Sodium 141 Potassium 3.9 Chloride 104 Carbon Dioxide 30 Anion Gap 10.9 BUN 25 H Creatinine 1.10 H GFR Calculation 66 BUN/Creatinine Ratio 22.00 H Glucose 72 L POC Glucose 79 225 H Calculated Osmolality 283.3 Calcium 8.0 L 06/08/16 06/08/16 06/08/16 17:19 12:56 10:35 Sodium 136 Potassium 4.0 Chloride 100 Carbon Dioxide 30 Anion Gap 10.0 BUN 28 H Creatinine 2.10 H GFR Calculation 30 BUN/Creatinine Ratio 13.00 Glucose 131 H POC Glucose 201 H 162 H Calculated Osmolality 279.0 Calcium 8.4 L 06/08/16 05:07 Sodium Potassium Chloride Carbon Dioxide Anion Gap BUN Creatinine GFR Calculation BUN/Creatinine Ratio Glucose POC Glucose 142 H Calculated Osmolality Calcium DS: Provider Date of admission: 06/03/16 16:01 Primary care physician: . No PCP Attending physician on admission: Jaimee Conti MD Consults: 06/03/16 17:24 Consult to Physician [CONS] Routine Comment: Consulting Provider: Phill Hansen Person Notified: md bennett 06/03/16 17:43 Consult to Dietitian [CONS] Routine Reason for Dietitian: Other Consult Comment: weight loss 06/03/16 17:57 Consult to Pharmacy [CONS] Routine Reason for Pharmacy Consult: Adjust Meds Renal Funct 06/07/16 08:06 Consult to Physician [CONS] Routine Comment: chest pain, hx of cad with cath in 2004 Consulting Provider: Steven Morales Person Notified: Zi Date Notified: 06/07/16 Time Notified: 09:23 06/07/16 11:37 Consult to Occupational Therapy [CONS] Routine Reason for Occupational Therapy: Weakness Consult to Physical Therapy [CONS] Routine Reason for Physical Therapy: Weakness Discharging clinician: Jaimee Conti MD
[2016-06-09] MEDS ORDERED: LOSARTAN 25 MG TABLET PO SCH (09:00)
[2016-06-09] MEDS: INSULIN NPH 100 UNIT/ML SUBCUT SCH (09:25)
[2016-06-09] MEDS: RIVASTIGMINE 4.6 MG/24 HR PATCH TRANSDERM SCH (09:25)
[2016-06-09] MEDS: ISOSORBIDE MONONITRATE 60 MG TABLET PO SCH (09:26)
[2016-06-09] MEDS: PANTOPRAZOLE 40 MG TABLET PO SCH (09:26)
[2016-06-09] MEDS: GABAPENTIN 100 MG CAPSULE PO SCH (09:26)
[2016-06-09] MEDS: ACETAMINOPHEN 325 MG TABLET PO SCH (09:27)
[2016-06-09] MEDS: traMADol 50 MG TABLET PO SCH (09:27)
[2016-06-09] MEDS: ASPIRIN EC 81 MG TABLET PO SCH (09:27)
[2016-06-09 09:47] VITALS: BP 159/79
--- NOTE | 2016-06-09 21:06 | Cardiology Progress Note ---
Dickson Adorno Vanessa, RN, am scribing for, and in the presence of, Wade Wallis MD 21:02. Assessment and Plan - Time spent with patient Time spent with patient: Greater than 30 minutes (1) Chest pain Status: Resolved Assessment and plan: 06/07/2016: Assessment/plan/recommendation:With negative EKG, negative troponins, and reproducible chest pain, it is unlikely that this is CAD, although she has a known history of CAD. Favored to be musculoskeletal, less likely GI related. Plan/recommendation: Treat for muscular skeletal pain-tramadol, Tylenol, gabapentin Follow response be sure patient is on a proton pump inhibitor 06/08/2016: Assessment/plan/recommendation: Her left parasternal chest pain, presumed chest wall pain is gone with medicines. No side effects with medication. However her creatinine has increased significantly. Agree with giving normal saline at 125 cc an hour overnight. We will recheck BMP in a.m. Agree that if renal function is better can be discharged. 06/09/2016: Assessment/plan/recommendation: Left parasternal pain is gone. She fels better. with hydration, her creatinine has come down to near normal. Okay with me for discharge with follow-up with her primary fondant puff maker as as needed or scheduled. (2) CKD stage 3 due to type 2 diabetes mellitus Problem details: Most likely due to diabetic nephropathy (94% of pts with proliferative diabetic retinopathy also have diabetic nephropathy). Status: Acute (3) Diabetes mellitus Problem details: Goal A1C <7% Status: Chronic Qualifiers: Diabetic retinopathy severity: with proliferative retinopathy (4) Dyslipidemia Status: Chronic (5) Acute kidney injury Status: Resolved (6) History of coronary artery bypass graft Status: Chronic (7) Hypertension Status: Chronic Cardiology - PN: Subj Interval history: PRIMARY DUCT INSTALLER: DR. YUKI MORALES Resting quietly today. No obvious distress or need is noted. Family present. No CP, dyspnea, or other complaint. BP overall stable at 150/80. Renal function greatly improved since yesterday and creatinine is 1.1 versus 2.1 yesterday after being hydrated with IV fluids.. Her potassium is 3.9. From cardiac standpoint, she is stable for discharge home today. Exam (Progress Note) - Constitutional Vitals: Period Temp Pulse Resp BP Sys/Becerra Pulse Ox Last 24 Hr 97.2 F-98.1 F 81-86 16-20 100-164/60-80 93-96 Exam: General appearance: no acute distress, morbidly obese - Eye Eye exam: Absent: periorbital swelling, laceration to eyelids - Respiratory Respiratory exam: Present: clear to auscultation bilaterally. Absent: accessory muscle use, chest wall tenderness - Cardiovascular Cardiovascular exam: Present: regular rate and rhythm - GI/Abdominal GI/Abdominal exam: Present: normal bowel sounds, soft. Absent: distended, tenderness - Extremities Exam Extremities exam: Absent: edema - Neurological Exam Neurological exam: Present: alert, oriented X3 - Psychiatric Psychiatric exam: Present: normal affect, normal mood - Skin Skin exam: Present: warm, dry Result/EKG - Labs CBC & BMP: 06/08/16 03:59 06/09/16 06:14 Lab Results: I have reviewed the past 24 hour labs Labs: Laboratory Results - last 24 hr 06/08/16 06/08/16 06/08/16 10:35 12:56 17:19 Sodium 136 Potassium 4.0 Chloride 100 Carbon Dioxide 30 Anion Gap 10.0 BUN 28 H Creatinine 2.10 H GFR Calculation 30 BUN/Creatinine Ratio 13.00 Glucose 131 H POC Glucose 162 H 201 H Calculated Osmolality 279.0 Calcium 8.4 L 06/08/16 06/09/16 06/09/16 19:29 06:14 07:17 Sodium 141 Potassium 3.9 Chloride 104 Carbon Dioxide 30 Anion Gap 10.9 BUN 25 H Creatinine 1.10 H GFR Calculation 66 BUN/Creatinine Ratio 22.00 H Glucose 72 L POC Glucose 225 H 79 Calculated Osmolality 283.3 Calcium 8.0 L - EKG EKG results: interpreted by me, no acute changes EKG shows: sinus rhythm Specialty Discharge - Follow Up or Referrals Follow up with: Phill Hansen MD [Physician] - 07/10/16 3:00 pm (hospital f/u) Steven Morales MD [Physician] - (Is scheduled or as needed. If the patient continues having intermittent chest pain, Dr. Morales may need to do an outpatient stress test with Cardiolite.) I, Wade Wallis MD, personally performed the services described in this documentation, ascribed by Denita Forman RN in my presence, and it is both accurate and complete .
== END 2016-06-09 11:25 | disposition home or self-care (01) | DRG 682 ==
LOC: N.ED 13:00 → N.EDINP 16:01 → N.5E 17:23
PROVIDERS: ADMIT Internal Medicine; ATTEND Internal Medicine

== ENCOUNTER 2017-03-25 19:00 | Inpatient (IN) ==
[2017-03-25] MEDS ORDERED: VANCOMYCIN INJ 1,000 MG in SODIUM CHLORIDE 0.9% 250 ML IV STA (23:30)
[2017-03-25] MEDS ORDERED: CEFEPIME 2,000 MG in SODIUM CHLORIDE 0.9% 100 ML IV STA (23:30)
[2017-03-26 00:17] LABS: Basophils % 0.3 % (0.0-0.8); Eosinophils # 0.3 10*3/uL (0.0-0.87); Hematocrit 36.7 VOL% (35.7-47.0); Immature Granulocytes % 0.1 %; Immature Granulocytes Absolute 0.01 #; Lymphocytes # 2.4 10*3/uL (1.4-4.0); Lymphocytes % 34.8 % (21.3-54.2); Mean Corpuscular HGB Conc 32.7 GM/DL (32-36); Mean Corpuscular Hemoglobin 28 PG (27-34); Mean Corpuscular Volume 84.2 FL (87-102); Mean Platelet Volume 10.3 FL (9.6-12.0); Monocytes # 0.7 10*3/uL (0.11-0.8); Monocytes % 9.8 % (1.7-12.7); Neutrophils # 3.5 10*3/uL (1.4-7.4); Platelet Count 213 T/CUMM (130-400); Red Blood Count 4.36 MC/CUMM (3.8-5.5); Red Cell Distribution Width 13.1 % (9.3-17.3); White Blood Count 6.8 T/CUMM (4-12)
[2017-03-26 00:51] LABS: Albumin 3.5 G/DL (3.4-5.0); Bilirubin,Total 0.6 MG/DL (0.2-1.0); Calcium 9.1 MG/DL (8.5-10.1); Osmolality,Calculated 284.8 MOS/KG (273-304); Total Protein 6.9 G/DL (6.4-8.3)
[2017-03-26 00:52] LABS: Potassium 3.8 MMOL/L (3.5-5.1)
[2017-03-26 01:42] LABS: Sedimentation Rate-Westergren 52 MM/HR (0-30)
[2017-03-26] MEDS ORDERED: ONDANSETRON 4 MG/2 ML VIAL IV PRN (01:43)
[2017-03-26] MEDS ORDERED: ACETAMINOPHEN 325 MG TABLET PO PRN (01:43)
[2017-03-26] MEDS ORDERED: VANCOMYCIN 1,000 MG VIAL ONE (01:48)
[2017-03-26] MEDS ORDERED: CEFEPIME 2,000 MG VIAL ONE (01:48)
[2017-03-26] MEDS: INSULIN REGULAR 100 UNIT/ML SUBCUT SCH ×5 (05:24→21:16)
[2017-03-26] MEDS ORDERED: PREGABALIN 100 MG CAPSULE PO PRN (06:58)
[2017-03-26] MEDS: INSULIN NPH/REGULAR 70/30 100 UNIT/ML SUBCUT SCH ×2 (08:36→21:17)
[2017-03-26] MEDS ORDERED: GLUCAGON 1 MG VIAL IM PRN (11:08)
[2017-03-26] MEDS ORDERED: DEXTROSE 50% 25 GM/50 ML VIAL IV PRN (11:08)
[2017-03-26] MEDS: glipiZIDE 5 MG TABLET PO SCH (14:16)
[2017-03-26] MEDS: LOSARTAN 50 MG TABLET PO SCH (14:16)
[2017-03-26] MEDS: ASPIRIN EC 81 MG TABLET PO SCH (14:16)
[2017-03-26] MEDS: DOCUSATE SODIUM 100 MG CAPSULE PO SCH ×2 (14:17→21:16)
[2017-03-26] MEDS: FUROSEMIDE 20 MG TABLET PO SCH (14:17)
[2017-03-26] MEDS: LUBIPROSTONE 24 MCG CAPSULE PO SCH ×2 (14:17→21:16)
[2017-03-26] MEDS: POTASSIUM CHLORIDE 20 MEQ TABLET PO SCH (14:18)
[2017-03-26] MEDS: PANTOPRAZOLE 40 MG TABLET PO SCH (14:18)
[2017-03-26] MEDS: ISOSORBIDE MONONITRATE 60 MG TABLET PO SCH (14:18)
[2017-03-26] MEDS: ROSUVASTATIN 20 MG TABLET PO SCH (14:19)
[2017-03-26] MEDS: GABAPENTIN 100 MG CAPSULE PO SCH ×3 (14:20→21:16)
[2017-03-27 06:26] LABS: Basophils % 0.3 % (0.0-0.8); Eosinophils # 0.3 10*3/uL (0.0-0.87); Eosinophils % 3.5 % (0.00-10.9); Hematocrit 36.6 VOL% (35.7-47.0); Immature Granulocytes % 0.3 %; Immature Granulocytes Absolute 0.02 #; Lymphocytes # 2.1 10*3/uL (1.4-4.0); Lymphocytes % 29.5 % (21.3-54.2); Mean Corpuscular HGB Conc 32.8 GM/DL (32-36); Mean Corpuscular Hemoglobin 28 PG (27-34); Mean Corpuscular Volume 84.3 FL (87-102); Mean Platelet Volume 10.4 FL (9.6-12.0); Monocytes # 0.9 10*3/uL (0.11-0.8); Monocytes % 12.6 % (1.7-12.7); Neutrophils # 3.8 10*3/uL (1.4-7.4); Neutrophils % 53.8 % (38.7-73.9); Platelet Count 218 T/CUMM (130-400); Red Blood Count 4.34 MC/CUMM (3.8-5.5); White Blood Count 7.1 T/CUMM (4-12)
[2017-03-27 06:50] LABS: Calcium 8.8 MG/DL (8.5-10.1); Magnesium 1.9 MG/DL (1.8-2.4); Osmolality,Calculated 277.5 MOS/KG (273-304)
[2017-03-27] MEDS: INSULIN NPH/REGULAR 70/30 100 UNIT/ML SUBCUT SCH ×2 (07:12→21:41)
[2017-03-27] MEDS: INSULIN REGULAR 100 UNIT/ML SUBCUT SCH ×4 (07:12→21:40)
[2017-03-27] MEDS: LUBIPROSTONE 24 MCG CAPSULE PO SCH ×2 (09:17→21:41)
[2017-03-27] MEDS: ASPIRIN EC 81 MG TABLET PO SCH (09:18)
[2017-03-27] MEDS: LOSARTAN 50 MG TABLET PO SCH (09:18)
[2017-03-27] MEDS: PANTOPRAZOLE 40 MG TABLET PO SCH (09:18)
[2017-03-27] MEDS: DOCUSATE SODIUM 100 MG CAPSULE PO SCH ×2 (09:18→21:51)
[2017-03-27] MEDS: GABAPENTIN 100 MG CAPSULE PO SCH ×3 (09:19→21:41)
[2017-03-27] MEDS: ISOSORBIDE MONONITRATE 60 MG TABLET PO SCH (09:19)
[2017-03-27] MEDS: FUROSEMIDE 20 MG TABLET PO SCH (09:19)
[2017-03-27] MEDS: POTASSIUM CHLORIDE 20 MEQ TABLET PO SCH (09:19)
[2017-03-27] MEDS: glipiZIDE 5 MG TABLET PO SCH (09:20)
[2017-03-27] MEDS: ROSUVASTATIN 20 MG TABLET PO SCH (09:23)
[2017-03-28] MEDS: INSULIN NPH/REGULAR 70/30 100 UNIT/ML SUBCUT SCH ×2 (08:34→21:14)
[2017-03-28] MEDS: glipiZIDE 5 MG TABLET PO SCH (08:35)
[2017-03-28] MEDS: INSULIN REGULAR 100 UNIT/ML SUBCUT SCH ×4 (08:35→21:15)
[2017-03-28] MEDS: GABAPENTIN 100 MG CAPSULE PO SCH ×3 (08:35→21:14)
[2017-03-28] MEDS: PANTOPRAZOLE 40 MG TABLET PO SCH (08:36)
[2017-03-28] MEDS: ASPIRIN EC 81 MG TABLET PO SCH (08:36)
[2017-03-28] MEDS: POTASSIUM CHLORIDE 20 MEQ TABLET PO SCH (08:36)
[2017-03-28] MEDS: ROSUVASTATIN 20 MG TABLET PO SCH (08:36)
[2017-03-28] MEDS: LUBIPROSTONE 24 MCG CAPSULE PO SCH ×2 (08:36→21:13)
[2017-03-28] MEDS: FUROSEMIDE 20 MG TABLET PO SCH (08:36)
[2017-03-28] MEDS: ISOSORBIDE MONONITRATE 60 MG TABLET PO SCH (08:36)
[2017-03-28] MEDS: DOCUSATE SODIUM 100 MG CAPSULE PO SCH ×2 (08:36→21:13)
[2017-03-28] MEDS: LOSARTAN 50 MG TABLET PO SCH (09:16)
[2017-03-28 10:50] LABS: PT Patient Result 10.6 SECS
[2017-03-29 05:35] LABS: Basophils % 0.3 % (0.0-0.8); Eosinophils # 0.4 10*3/uL (0.0-0.87); Eosinophils % 5.3 % (0.00-10.9); Immature Granulocytes % 0.3 %; Immature Granulocytes Absolute 0.02 #; Lymphocytes # 2.4 10*3/uL (1.4-4.0); Lymphocytes % 35.6 % (21.3-54.2); Mean Corpuscular HGB Conc 33.3 GM/DL (32-36); Mean Corpuscular Hemoglobin 28 PG (27-34); Mean Corpuscular Volume 82.8 FL (87-102); Mean Platelet Volume 10.4 FL (9.6-12.0); Monocytes # 0.9 10*3/uL (0.11-0.8); Monocytes % 12.9 % (1.7-12.7); Neutrophils % 45.6 % (38.7-73.9); Platelet Count 219 T/CUMM (130-400); Red Blood Count 4.35 MC/CUMM (3.8-5.5); Red Cell Distribution Width 12.9 % (9.3-17.3); White Blood Count 6.7 T/CUMM (4-12)
[2017-03-29] MEDS ORDERED: MIDAZOLAM 2 MG/2 ML VIAL IV ONE (06:00)
[2017-03-29] MEDS ORDERED: fentaNYL 100 MCG/2 ML VIAL IV ONE (06:00)
[2017-03-29] MEDS ORDERED: DIAZEPAM 5 MG TABLET PO ONE (06:00)
[2017-03-29 06:07] LABS: Calcium 8.5 MG/DL (8.5-10.1); Osmolality,Calculated 282.4 MOS/KG (273-304); Potassium 4.3 MMOL/L (3.5-5.1)
[2017-03-29] MEDS: INSULIN NPH/REGULAR 70/30 100 UNIT/ML SUBCUT SCH (06:53)
[2017-03-29] MEDS ORDERED: HEPARIN/NACL 0.9% 2 UNITS/ML 2,000 ML IV ONE (07:59)
[2017-03-29] MEDS ORDERED: MIDAZOLAM 2 MG/2 ML VIAL ONE (09:17)
[2017-03-29] MEDS ORDERED: fentaNYL 100 MCG/2 ML VIAL ONE (09:17)
[2017-03-29] MEDS: INSULIN REGULAR 100 UNIT/ML SUBCUT SCH ×3 (09:58→16:07)
[2017-03-29] MEDS: FUROSEMIDE 20 MG TABLET PO SCH (10:42)
[2017-03-29] MEDS: ROSUVASTATIN 20 MG TABLET PO SCH (10:42)
[2017-03-29] MEDS: LOSARTAN 50 MG TABLET PO SCH (10:42)
[2017-03-29] MEDS: glipiZIDE 5 MG TABLET PO SCH (10:43)
[2017-03-29] MEDS: ISOSORBIDE MONONITRATE 60 MG TABLET PO SCH (10:43)
[2017-03-29] MEDS: PANTOPRAZOLE 40 MG TABLET PO SCH (10:43)
[2017-03-29] MEDS: LUBIPROSTONE 24 MCG CAPSULE PO SCH (10:43)
[2017-03-29] MEDS: ASPIRIN EC 81 MG TABLET PO SCH (10:43)
[2017-03-29] MEDS: POTASSIUM CHLORIDE 20 MEQ TABLET PO SCH (10:43)
[2017-03-29] MEDS: DOCUSATE SODIUM 100 MG CAPSULE PO SCH (10:43)
[2017-03-29] MEDS: GABAPENTIN 100 MG CAPSULE PO SCH ×2 (10:46→16:07)
[2017-03-29 17:22] VITALS: BP 111/70
== END 2017-03-29 17:41 | disposition home health service (06) | DRG 300 ==
LOC: N.ED 19:00 → N.EDINP 03-26 01:43 → N.3E 03-26 03:20
PROVIDERS: ADMIT Family Medicine; ATTEND Family Medicine

== ENCOUNTER 2017-04-25 11:19 | Inpatient (IN) ==
[2017-04-25] MEDS ORDERED: ONDANSETRON 4 MG/2 ML VIAL IV PRN ×2 (11:39→15:22)
[2017-04-25] MEDS ORDERED: SODIUM CHLORIDE 0.9% 1,000 ML IV STA (11:39)
[2017-04-25] MEDS ORDERED: INSULIN LISPRO 100 UNIT/ML SUBCUT STA (11:50)
[2017-04-25] MEDS ORDERED: INSULIN LISPRO 100 UNIT/ML ONE ×2 (11:51→17:29)
[2017-04-25 11:55] LABS: Basophils % 0.2 % (0.0-0.8); Eosinophils % 0.2 % (0.00-10.9); Hematocrit 37.8 VOL% (35.7-47.0); Hemoglobin 12.4 GM/DL (12.0-16.0); Immature Granulocytes % 0.1 %; Immature Granulocytes Absolute 0.01 #; Lymphocytes # 1.5 10*3/uL (1.4-4.0); Lymphocytes % 18.3 % (21.3-54.2); Mean Corpuscular HGB Conc 32.8 GM/DL (32-36); Mean Corpuscular Hemoglobin 28 PG (27-34); Mean Corpuscular Volume 84.4 FL (87-102); Mean Platelet Volume 11.1 FL (9.6-12.0); Monocytes # 0.6 10*3/uL (0.11-0.8); Monocytes % 7.7 % (1.7-12.7); Neutrophils # 5.9 10*3/uL (1.4-7.4); Neutrophils % 73.5 % (38.7-73.9); Platelet Count 221 T/CUMM (130-400); Red Blood Count 4.48 MC/CUMM (3.8-5.5); Red Cell Distribution Width 12.4 % (9.3-17.3)
[2017-04-25 12:07] LABS: PT Patient Result 10.8 SECS
[2017-04-25 12:14] LABS: Apearance,Urine CLEAR (Clear); Bilirubin,Urine Negative (Negative); Blood, Urine Small mg/dL (Negative); Glucose,Urine (UA) >=500 mg/dL (Negative); Ketones,Urine 20 mg/dL (Negative); Mucus,Urine Occasional /LPF (Occasional); Nitrite,Urine Negative (Negative); Protein,Urine 100 MG/DL; RBC,Urine 1 /HPF (0-4); Urine Color Yellow (Yellow); Urine Specific Gravity 1.025 (1.001-1.035); Urine Urobilinogen < 2.0 EU/DL (0.2-1.0); WBC,Urine 45 /HPF (0-6)
[2017-04-25 12:19] LABS: Barbiturates Screen,Urine Negative (Negative); Benzodiazepines Screen,Urine Negative (Negative); Cannabinoid Screen,Urine Negative (Negative); Opiate Screen,Urine Negative (Negative); Phencyclidine Screen,Urine Negative (Negative)
[2017-04-25 12:23] LABS: Alanine Aminotransferase 9 U/L (13-56); Albumin 3.5 G/DL (3.4-5.0); Alkaline Phosphatase 108 U/L (45-117); Aspartate Amino Transferase 6 U/L (0-37); Blood Urea Nitrogen 24 MG/DL (7-18); Calcium 8.7 MG/DL (8.5-10.1); Glucose 459 MG/DL (74-106); Osmolality,Calculated 298.7 MOS/KG (273-304); Potassium 4.2 MMOL/L (3.5-5.1); Sodium 138 MMOL/L (136-145); Total Protein 6.9 G/DL (6.4-8.3)
[2017-04-25] MEDS ORDERED: GLUCAGON 1 MG VIAL IM PRN (15:22)
[2017-04-25] MEDS ORDERED: ENOXAPARIN 40 MG/0.4 ML SYRINGE SUBCUT SCH (15:22)
[2017-04-25] MEDS ORDERED: DEXTROSE 50% 25 GM/50 ML VIAL IV PRN (15:22)
[2017-04-25] MEDS ORDERED: ENOXAPARIN 40 MG/0.4 ML SYRINGE ONE (15:43)
[2017-04-25 16:34] LABS: Troponin I Only < 0.015 NG/ML (0.00-0.045)
[2017-04-25] MEDS ORDERED: SODIUM CHLORIDE 0.9% 1,000 ML IV SCH (17:00)
[2017-04-25] MEDS: INSULIN LISPRO 100 UNIT/ML SUBCUT SCH (17:34)
[2017-04-25] MEDS ORDERED: INSULIN LISPRO 100 UNIT/ML SUBCUT SCH (18:00)
[2017-04-25] MEDS: DOCUSATE SODIUM 100 MG CAPSULE PO SCH (21:29)
[2017-04-25] MEDS: INSULIN NPH/REGULAR 70/30 100 UNIT/ML SUBCUT SCH (21:30)
[2017-04-26] MEDS: INSULIN LISPRO 100 UNIT/ML SUBCUT SCH ×5 (00:11→21:32)
[2017-04-26] MEDS ORDERED: SODIUM CHLORIDE 0.9% 500 ML IV ONE ×2 (00:34→14:13)
[2017-04-26 05:46] LABS: Basophils % 0.2 % (0.0-0.8); Eosinophils % 0.5 % (0.00-10.9); Hematocrit 36.2 VOL% (35.7-47.0); Hemoglobin 12.1 GM/DL (12.0-16.0); Immature Granulocytes % 0.5 %; Immature Granulocytes Absolute 0.04 #; Lymphocytes # 2.7 10*3/uL (1.4-4.0); Lymphocytes % 31.1 % (21.3-54.2); Mean Corpuscular HGB Conc 33.4 GM/DL (32-36); Mean Corpuscular Hemoglobin 28 PG (27-34); Mean Corpuscular Volume 82.6 FL (87-102); Mean Platelet Volume 10.5 FL (9.6-12.0); Monocytes # 0.9 10*3/uL (0.11-0.8); Monocytes % 10.1 % (1.7-12.7); Neutrophils # 5.1 10*3/uL (1.4-7.4); Neutrophils % 57.6 % (38.7-73.9); Platelet Count 218 T/CUMM (130-400); Red Blood Count 4.38 MC/CUMM (3.8-5.5); Red Cell Distribution Width 12.7 % (9.3-17.3); White Blood Count 8.8 T/CUMM (4-12)
[2017-04-26 06:15] LABS: Calcium 8.7 MG/DL (8.5-10.1); Osmolality,Calculated 289.7 MOS/KG (273-304); Potassium 3.3 MMOL/L (3.5-5.1); Risk Ratio 3.28; Thyroid Stimulating Hormone 1.8 uIU/ml (0.358-3.74)
[2017-04-26] MEDS ORDERED: SODIUM CHLORIDE 0.9% 1,000 ML IV ONE (07:30)
[2017-04-26] MEDS ORDERED: POTASSIUM CHLORIDE RIDER 100 ML IV ONE (09:21)
[2017-04-26] MEDS: DOCUSATE SODIUM 100 MG CAPSULE PO SCH ×2 (09:59→20:39)
[2017-04-26] MEDS: ROSUVASTATIN 20 MG TABLET PO SCH ×2 (09:59→15:15)
[2017-04-26] MEDS: INSULIN NPH/REGULAR 70/30 100 UNIT/ML SUBCUT SCH ×2 (10:00→20:40)
[2017-04-26] MEDS: CLOPIDOGREL 75 MG TABLET PO SCH ×2 (10:00→15:16)
[2017-04-26] MEDS: ASPIRIN EC 81 MG TABLET PO SCH ×2 (10:00→15:16)
[2017-04-26] MEDS: PANTOPRAZOLE 40 MG TABLET PO SCH ×2 (10:00→15:15)
[2017-04-26] MEDS ORDERED: POTASSIUM CHLORIDE RIDER 20 MEQ in PREMIX 1 EACH IV PRN (10:05)
[2017-04-26] MEDS: SODIUM CHLOR 0.9% KCL 20 MEQ 20 MEQ/1,000 ML BAG IV SCH ×2 (10:21→14:30)
[2017-04-26] MEDS: cefTRIAXone 1,000 MG in SYRINGE 1 EACH IV SCH (15:00)
[2017-04-26] MEDS: GABAPENTIN 100 MG CAPSULE PO SCH ×2 (15:14→20:39)
[2017-04-27 05:19] LABS: Basophils % 0.2 % (0.0-0.8); Eosinophils # 0.3 10*3/uL (0.0-0.87); Eosinophils % 2.9 % (0.00-10.9); Hemoglobin 11.7 GM/DL (12.0-16.0); Immature Granulocytes % 0.2 %; Immature Granulocytes Absolute 0.02 #; Lymphocytes # 2.2 10*3/uL (1.4-4.0); Lymphocytes % 23.7 % (21.3-54.2); Mean Corpuscular HGB Conc 34.4 GM/DL (32-36); Mean Corpuscular Hemoglobin 29 PG (27-34); Mean Corpuscular Volume 83.1 FL (87-102); Mean Platelet Volume 11.1 FL (9.6-12.0); Monocytes # 0.8 10*3/uL (0.11-0.8); Monocytes % 8.3 % (1.7-12.7); Neutrophils % 64.7 % (38.7-73.9); Platelet Count 204 T/CUMM (130-400); Red Blood Count 4.09 MC/CUMM (3.8-5.5); Red Cell Distribution Width 12.4 % (9.3-17.3); White Blood Count 9.3 T/CUMM (4-12)
[2017-04-27 05:54] LABS: Calcium 8.4 MG/DL (8.5-10.1); Osmolality,Calculated 284.1 MOS/KG (273-304); Potassium 3.7 MMOL/L (3.5-5.1)
[2017-04-27] MEDS: ACETAMINOPHEN 325 MG TABLET PO PRN ×2 (06:18→13:42)
[2017-04-27] MEDS ORDERED: hydrALAZINE 20 MG/1 ML VIAL IV PRN (08:27)
[2017-04-27] MEDS ORDERED: FUROSEMIDE 20 MG TABLET PO SCH (09:00)
[2017-04-27] MEDS ORDERED: LOSARTAN 50 MG TABLET PO SCH ×2 (09:00→10:56)
[2017-04-27] MEDS ORDERED: amLODIPine 10 MG TABLET PO SCH (09:00)
[2017-04-27] MEDS: GABAPENTIN 100 MG CAPSULE PO SCH ×2 (09:30→15:31)
[2017-04-27] MEDS: CLOPIDOGREL 75 MG TABLET PO SCH (09:30)
[2017-04-27] MEDS: ASPIRIN EC 81 MG TABLET PO SCH (09:30)
[2017-04-27] MEDS: PANTOPRAZOLE 40 MG TABLET PO SCH (09:30)
[2017-04-27] MEDS: DOCUSATE SODIUM 100 MG CAPSULE PO SCH (09:30)
[2017-04-27] MEDS: ROSUVASTATIN 20 MG TABLET PO SCH (09:30)
[2017-04-27] MEDS: INSULIN NPH/REGULAR 70/30 100 UNIT/ML SUBCUT SCH (09:30)
[2017-04-27] MEDS: INSULIN LISPRO 100 UNIT/ML SUBCUT SCH ×2 (09:31→12:30)
[2017-04-27] MEDS ORDERED: ISOSORBIDE MONONITRATE 60 MG TABLET PO SCH (11:00)
[2017-04-27] MEDS: cefTRIAXone 1,000 MG in SYRINGE 1 EACH IV SCH (12:31)
[2017-04-27] MEDS: SODIUM CHLOR 0.9% KCL 20 MEQ 20 MEQ/1,000 ML BAG IV SCH (15:31)
[2017-04-27 15:55] VITALS: BP 114/58
== END 2017-04-27 16:04 | disposition home health service (06) | DRG 69 ==
LOC: N.ED 11:19 → N.EDINP 12:31 → N.CC 17:28 → N.TELES 04-26 22:07
PROVIDERS: ADMIT Family Medicine; ATTEND Family Medicine

== ENCOUNTER 2017-04-29 10:19 | Inpatient (IN) ==
[2017-04-29 11:42] LABS: Basophils % 0.1 % (0.0-0.8); Eosinophils # 0.1 10*3/uL (0.0-0.87); Eosinophils % 1.4 % (0.00-10.9); Hematocrit 36.6 VOL% (35.7-47.0); Hemoglobin 11.9 GM/DL (12.0-16.0); Immature Granulocytes % 0.3 %; Immature Granulocytes Absolute 0.02 #; Lymphocytes # 1.6 10*3/uL (1.4-4.0); Lymphocytes % 22.1 % (21.3-54.2); Mean Corpuscular HGB Conc 32.5 GM/DL (32-36); Mean Corpuscular Hemoglobin 28 PG (27-34); Mean Corpuscular Volume 84.5 FL (87-102); Mean Platelet Volume 11.4 FL (9.6-12.0); Monocytes # 0.7 10*3/uL (0.11-0.8); Monocytes % 9.7 % (1.7-12.7); Neutrophils # 4.7 10*3/uL (1.4-7.4); Neutrophils % 66.4 % (38.7-73.9); Platelet Count 201 T/CUMM (130-400); Red Blood Count 4.33 MC/CUMM (3.8-5.5); Red Cell Distribution Width 12.5 % (9.3-17.3)
[2017-04-29 11:51] LABS: INR 0.9; PT Patient Result 9.7 SECS
[2017-04-29 12:12] LABS: Alanine Aminotransferase < 9 U/L (13-56); Albumin 3.1 G/DL (3.4-5.0); Alkaline Phosphatase 94 U/L (45-117); Aspartate Amino Transferase 14 U/L (0-37); Blood Urea Nitrogen 19 MG/DL (7-18); Calcium 8.7 MG/DL (8.5-10.1); Glucose 53 MG/DL (74-106); Osmolality,Calculated 279.3 MOS/KG (273-304); Potassium 3.5 MMOL/L (3.5-5.1); Sodium 141 MMOL/L (136-145); Total Protein 6.8 G/DL (6.4-8.3)
[2017-04-29] MEDS ORDERED: ACETAMINOPHEN 325 MG TABLET PO PRN (12:22)
[2017-04-29] MEDS ORDERED: ONDANSETRON 4 MG/2 ML VIAL IV PRN (12:22)
[2017-04-29] MEDS ORDERED: DEXTROSE 50% 25 GM/50 ML VIAL IV PRN (12:22)
[2017-04-29] MEDS ORDERED: GLUCAGON 1 MG VIAL IM PRN (12:22)
[2017-04-29] MEDS: NITROFURANTOIN MACRO/MONO 100 MG CAPSULE PO SCH ×2 (14:47→21:26)
[2017-04-29] MEDS ORDERED: hydrALAZINE 25 MG TABLET PO PRN (14:57)
[2017-04-29] MEDS ORDERED: PNEUMOCOCCAL VACCINE (13 VALENT) 0.5 ML SYRINGE IM ONE (15:28)
[2017-04-29] MEDS: ENOXAPARIN 40 MG/0.4 ML SYRINGE SUBCUT SCH (16:04)
[2017-04-29 19:26] LABS: Apearance,Urine CLEAR (Clear); Bilirubin,Urine Negative (Negative); Blood, Urine Small mg/dL (Negative); Glucose,Urine (UA) 50 mg/dL (Negative); Ketones,Urine 5 mg/dL (Negative); Nitrite,Urine Negative (Negative); Protein,Urine 30 MG/DL; RBC,Urine 1 /HPF (0-4); Urine Color Yellow (Yellow); Urine Specific Gravity 1.011 (1.001-1.035); Urine Urobilinogen < 2.0 EU/DL (0.2-1.0); WBC,Urine <1 /HPF (0-6)
[2017-04-29] MEDS: glipiZIDE 10 MG TABLET PO SCH (21:26)
[2017-04-29] MEDS: INSULIN NPH/REGULAR 70/30 100 UNIT/ML SUBCUT SCH (21:26)
[2017-04-29] MEDS: FAMOTIDINE 20 MG TABLET PO SCH (21:26)
[2017-04-29] MEDS: DOCUSATE SODIUM 100 MG CAPSULE PO SCH (21:26)
[2017-04-30] MEDS: INSULIN NPH/REGULAR 70/30 100 UNIT/ML SUBCUT SCH ×2 (09:17→22:38)
[2017-04-30] MEDS: ISOSORBIDE MONONITRATE 60 MG TABLET PO SCH (09:18)
[2017-04-30] MEDS: ROSUVASTATIN 20 MG TABLET PO SCH (09:19)
[2017-04-30] MEDS: glipiZIDE 10 MG TABLET PO SCH ×2 (09:19→21:16)
[2017-04-30] MEDS: NITROFURANTOIN MACRO/MONO 100 MG CAPSULE PO SCH ×2 (09:19→21:16)
[2017-04-30] MEDS: FAMOTIDINE 20 MG TABLET PO SCH ×2 (09:19→21:16)
[2017-04-30] MEDS: ASPIRIN EC 81 MG TABLET PO SCH (09:19)
[2017-04-30] MEDS: amLODIPine 10 MG TABLET PO SCH (09:19)
[2017-04-30] MEDS: LOSARTAN 50 MG TABLET PO SCH (09:19)
[2017-04-30] MEDS: FUROSEMIDE 20 MG TABLET PO SCH (09:20)
[2017-04-30] MEDS: DOCUSATE SODIUM 100 MG CAPSULE PO SCH ×2 (09:20→21:16)
[2017-04-30] MEDS: CLOPIDOGREL 75 MG TABLET PO SCH (09:20)
[2017-04-30] MEDS: PANTOPRAZOLE 40 MG TABLET PO SCH (09:20)
[2017-04-30] MEDS: ENOXAPARIN 40 MG/0.4 ML SYRINGE SUBCUT SCH (17:07)
[2017-05-01 06:38] LABS: Basophils % 0.1 % (0.0-0.8); Eosinophils # 0.1 10*3/uL (0.0-0.87); Hematocrit 31.5 VOL% (35.7-47.0); Hemoglobin 10.3 GM/DL (12.0-16.0); Immature Granulocytes % 0.3 %; Immature Granulocytes Absolute 0.02 #; Lymphocytes # 1.9 10*3/uL (1.4-4.0); Lymphocytes % 27.6 % (21.3-54.2); Mean Corpuscular HGB Conc 32.7 GM/DL (32-36); Mean Corpuscular Hemoglobin 27 PG (27-34); Mean Corpuscular Volume 83.3 FL (87-102); Mean Platelet Volume 10.5 FL (9.6-12.0); Monocytes # 0.8 10*3/uL (0.11-0.8); Monocytes % 10.9 % (1.7-12.7); Neutrophils # 4.1 10*3/uL (1.4-7.4); Neutrophils % 59.1 % (38.7-73.9); Platelet Count 233 T/CUMM (130-400); Red Blood Count 3.78 MC/CUMM (3.8-5.5); Red Cell Distribution Width 12.5 % (9.3-17.3)
[2017-05-01 07:08] LABS: Calcium 8.8 MG/DL (8.5-10.1); Osmolality,Calculated 275.5 MOS/KG (273-304); Potassium 3.6 MMOL/L (3.5-5.1)
[2017-05-01] MEDS: INSULIN NPH/REGULAR 70/30 100 UNIT/ML SUBCUT SCH ×2 (09:26→21:54)
[2017-05-01] MEDS: ISOSORBIDE MONONITRATE 60 MG TABLET PO SCH (10:05)
[2017-05-01] MEDS: ROSUVASTATIN 20 MG TABLET PO SCH (10:05)
[2017-05-01] MEDS: glipiZIDE 10 MG TABLET PO SCH ×2 (10:05→21:53)
[2017-05-01] MEDS: NITROFURANTOIN MACRO/MONO 100 MG CAPSULE PO SCH ×2 (10:05→21:54)
[2017-05-01] MEDS: FAMOTIDINE 20 MG TABLET PO SCH ×2 (10:05→21:53)
[2017-05-01] MEDS: amLODIPine 10 MG TABLET PO SCH (10:05)
[2017-05-01] MEDS: CLOPIDOGREL 75 MG TABLET PO SCH (10:06)
[2017-05-01] MEDS: LOSARTAN 50 MG TABLET PO SCH (10:06)
[2017-05-01] MEDS: FUROSEMIDE 20 MG TABLET PO SCH (10:06)
[2017-05-01] MEDS: ASPIRIN EC 81 MG TABLET PO SCH (10:06)
[2017-05-01] MEDS: PANTOPRAZOLE 40 MG TABLET PO SCH (10:06)
[2017-05-01] MEDS: DOCUSATE SODIUM 100 MG CAPSULE PO SCH ×2 (10:06→21:53)
[2017-05-01] MEDS: ENOXAPARIN 40 MG/0.4 ML SYRINGE SUBCUT SCH (15:25)
[2017-05-01] MEDS: MEMANTINE 5 MG TABLET PO SCH (21:53)
[2017-05-02] MEDS: INSULIN NPH/REGULAR 70/30 100 UNIT/ML SUBCUT SCH (08:39)
[2017-05-02] MEDS: amLODIPine 10 MG TABLET PO SCH (08:41)
[2017-05-02] MEDS: ASPIRIN EC 81 MG TABLET PO SCH (08:41)
[2017-05-02] MEDS: ISOSORBIDE MONONITRATE 60 MG TABLET PO SCH (08:41)
[2017-05-02] MEDS: FAMOTIDINE 20 MG TABLET PO SCH (08:41)
[2017-05-02] MEDS: glipiZIDE 10 MG TABLET PO SCH (08:41)
[2017-05-02] MEDS: ROSUVASTATIN 20 MG TABLET PO SCH (08:41)
[2017-05-02] MEDS: FUROSEMIDE 20 MG TABLET PO SCH (08:42)
[2017-05-02] MEDS: LOSARTAN 50 MG TABLET PO SCH (08:42)
[2017-05-02] MEDS: CLOPIDOGREL 75 MG TABLET PO SCH (08:42)
[2017-05-02] MEDS: NITROFURANTOIN MACRO/MONO 100 MG CAPSULE PO SCH (08:42)
[2017-05-02] MEDS: PANTOPRAZOLE 40 MG TABLET PO SCH (08:42)
[2017-05-02] MEDS: MEMANTINE 5 MG TABLET PO SCH (08:42)
[2017-05-02] MEDS: DOCUSATE SODIUM 100 MG CAPSULE PO SCH (08:42)
[2017-05-02 11:40] VITALS: BP 154/91
[2017-05-02] MEDS ORDERED: MAGNESIUM CITRATE 300 ML BOTTLE PO ONE (13:38)
== END 2017-05-02 14:10 | disposition home health service (06) | DRG 884 ==
LOC: EDUNIT# → EDBD → N.ED 10:19 → N.EDINP 12:22 → N.5E 13:52
PROVIDERS: ADMIT Family Medicine; ATTEND Family Medicine

== ENCOUNTER 2017-05-25 17:57 | Inpatient (IN) ==
[2017-05-25 20:20] LABS: Basophils % 0.2 % (0.0-0.8); Eosinophils % 0.2 % (0.00-10.9); Hematocrit 25.5 VOL% (35.7-47.0); Hemoglobin 8.3 GM/DL (12.0-16.0); Immature Granulocytes % 0.5 %; Immature Granulocytes Absolute 0.09 #; Lymphocytes # 1.9 10*3/uL (1.4-4.0); Lymphocytes % 11.4 % (21.3-54.2); Mean Corpuscular HGB Conc 32.5 GM/DL (32-36); Mean Corpuscular Hemoglobin 27 PG (27-34); Mean Corpuscular Volume 82.8 FL (87-102); Mean Platelet Volume 10.1 FL (9.6-12.0); Monocytes # 1.4 10*3/uL (0.11-0.8); Monocytes % 8.6 % (1.7-12.7); Neutrophils # 13.3 10*3/uL (1.4-7.4); Neutrophils % 79.1 % (38.7-73.9); Platelet Count 323 T/CUMM (130-400); Red Blood Count 3.08 MC/CUMM (3.8-5.5); Red Cell Distribution Width 13.2 % (9.3-17.3); White Blood Count 16.8 T/CUMM (4-12)
[2017-05-25 20:27] LABS: PT Patient Result 10.4 SECS
[2017-05-25 20:47] LABS: Apearance,Urine CLEAR (Clear); Bilirubin,Urine Negative (Negative); Blood, Urine Moderate mg/dL (Negative); Glucose,Urine (UA) >=500 mg/dL (Negative); Hyaline Casts,Urine 1 /LPF (0-3); Ketones,Urine Negative (Negative); Mucus,Urine Occasional /LPF (Occasional); Nitrite,Urine Negative (Negative); Protein,Urine 100 MG/DL; RBC,Urine 2 /HPF (0-4); Squamous Epithelial Cell,Urine Occasional /HPF (0-10); Urine Color Yellow (Yellow); Urine Specific Gravity 1.015 (1.001-1.035); Urine Urobilinogen < 2.0 EU/DL (0.2-1.0); WBC,Urine 5 /HPF (0-6)
[2017-05-25 20:55] LABS: Alanine Aminotransferase 15 U/L (13-56); Albumin 2.5 G/DL (3.4-5.0); Alkaline Phosphatase 120 U/L (45-117); Aspartate Amino Transferase 18 U/L (0-37); Blood Urea Nitrogen 24 MG/DL (7-18); Calcium 8.7 MG/DL (8.5-10.1); Glucose 408 MG/DL (74-106); Osmolality,Calculated 290.1 MOS/KG (273-304); Potassium 3.8 MMOL/L (3.5-5.1); Sodium 135 MMOL/L (136-145); Total Protein 6.8 G/DL (6.4-8.3); Troponin I Only < 0.015 NG/ML (0.00-0.045)
[2017-05-25] MEDS ORDERED: INSULIN REGULAR 100 UNIT/ML IV STA (21:19)
[2017-05-25] MEDS ORDERED: SODIUM CHLORIDE 0.9% 1,000 ML IV STA (21:19)
[2017-05-25] MEDS ORDERED: INSULIN REGULAR 100 UNIT/ML ONE (21:48)
[2017-05-25] MEDS ORDERED: GLUCAGON 1 MG VIAL IM PRN ×2 (21:49→21:55)
[2017-05-25] MEDS ORDERED: DEXTROSE 50% 25 GM/50 ML VIAL IV PRN ×2 (21:49→21:55)
[2017-05-25] MEDS ORDERED: ONDANSETRON 4 MG/2 ML VIAL IV PRN (21:51)
[2017-05-25] MEDS ORDERED: PIPERACILLIN/TAZOBACTAM 3,375 MG in SODIUM CHLORIDE 0.9% 100 ML IV STA (21:56)
[2017-05-25] MEDS ORDERED: PIPERACILLIN/TAZOBACTAM 3,375 MG VIAL IV ONE (22:41)
[2017-05-25] MEDS ORDERED: SODIUM CHLORIDE 0.9% 100 ML IV ONE (22:42)
[2017-05-26] MEDS: LACTATED RINGERS 1,000 ML IV SCH ×3 (00:30→15:45)
[2017-05-26] MEDS: INSULIN LISPRO 100 UNIT/ML SUBCUT SCH ×4 (00:41→19:02)
[2017-05-26 05:35] LABS: Basophils % 0.2 % (0.0-0.8); Eosinophils # 0.1 10*3/uL (0.0-0.87); Eosinophils % 0.6 % (0.00-10.9); Hematocrit 29.8 VOL% (35.7-47.0); Hemoglobin 9.6 GM/DL (12.0-16.0); Immature Granulocytes % 0.5 %; Immature Granulocytes Absolute 0.06 #; Lymphocytes # 1.9 10*3/uL (1.4-4.0); Lymphocytes % 15.4 % (21.3-54.2); Mean Corpuscular HGB Conc 32.2 GM/DL (32-36); Mean Corpuscular Hemoglobin 26 PG (27-34); Mean Corpuscular Volume 82.1 FL (87-102); Mean Platelet Volume 9.9 FL (9.6-12.0); Monocytes # 1.3 10*3/uL (0.11-0.8); Monocytes % 10.2 % (1.7-12.7); Neutrophils % 73.1 % (38.7-73.9); Platelet Count 274 T/CUMM (130-400); Red Blood Count 3.63 MC/CUMM (3.8-5.5); Red Cell Distribution Width 13.1 % (9.3-17.3); White Blood Count 12.3 T/CUMM (4-12)
[2017-05-26 06:06] LABS: Calcium 8.5 MG/DL (8.5-10.1); Potassium 3.2 MMOL/L (3.5-5.1)
[2017-05-26] MEDS: PIPERACILLIN/TAZOBACTAM 3,375 MG in SODIUM CHLORIDE 0.9% 100 ML IV SCH ×3 (06:25→22:44)
[2017-05-26] MEDS: PANTOPRAZOLE 40 MG TABLET PO SCH (10:23)
[2017-05-26] MEDS: ENOXAPARIN 40 MG/0.4 ML SYRINGE SUBCUT SCH (15:47)
[2017-05-26] MEDS: GABAPENTIN 100 MG CAPSULE PO SCH ×2 (15:52→21:51)
[2017-05-26] MEDS: MEMANTINE 5 MG TABLET PO SCH (21:51)
[2017-05-26] MEDS: LUBIPROSTONE 24 MCG CAPSULE PO SCH (21:51)
[2017-05-26] MEDS: DOCUSATE SODIUM 100 MG CAPSULE PO SCH (21:51)
[2017-05-26] MEDS: INSULIN NPH/REGULAR 70/30 100 UNIT/ML SUBCUT SCH (21:51)
[2017-05-27] MEDS: INSULIN LISPRO 100 UNIT/ML SUBCUT SCH ×5 (01:11→23:45)
[2017-05-27] MEDS: ACETAMINOPHEN 325 MG TABLET PO PRN (01:12)
[2017-05-27] MEDS: MORPHINE 2 MG/1 ML SYRINGE IV PRN (04:12)
[2017-05-27 05:41] LABS: Basophils % 0.2 % (0.0-0.8); Eosinophils # 0.1 10*3/uL (0.0-0.87); Eosinophils % 0.8 % (0.00-10.9); Hematocrit 29.7 VOL% (35.7-47.0); Hemoglobin 9.8 GM/DL (12.0-16.0); Immature Granulocytes % 0.6 %; Immature Granulocytes Absolute 0.07 #; Lymphocytes # 2.4 10*3/uL (1.4-4.0); Lymphocytes % 19.8 % (21.3-54.2); Mean Corpuscular Hemoglobin 27 PG (27-34); Mean Corpuscular Volume 82.3 FL (87-102); Mean Platelet Volume 10.8 FL (9.6-12.0); Monocytes # 1.5 10*3/uL (0.11-0.8); Monocytes % 12.1 % (1.7-12.7); Neutrophils % 66.5 % (38.7-73.9); Platelet Count 283 T/CUMM (130-400); Red Blood Count 3.61 MC/CUMM (3.8-5.5); Red Cell Distribution Width 13.2 % (9.3-17.3); White Blood Count 12.1 T/CUMM (4-12)
[2017-05-27 06:30] LABS: Calcium 8.5 MG/DL (8.5-10.1); Osmolality,Calculated 276.4 MOS/KG (273-304); Potassium 3.3 MMOL/L (3.5-5.1)
[2017-05-27] MEDS: PIPERACILLIN/TAZOBACTAM 3,375 MG in SODIUM CHLORIDE 0.9% 100 ML IV SCH ×3 (06:40→23:45)
[2017-05-27] MEDS: LACTATED RINGERS 1,000 ML IV SCH ×3 (07:23→20:49)
[2017-05-27] MEDS: INSULIN NPH/REGULAR 70/30 100 UNIT/ML SUBCUT SCH ×2 (07:42→20:48)
[2017-05-27] MEDS ORDERED: BUPIVACAINE 0.25% 50 ML VIAL ONE (07:48)
[2017-05-27] MEDS: MEMANTINE 5 MG TABLET PO SCH ×2 (10:32→20:48)
[2017-05-27] MEDS: ISOSORBIDE MONONITRATE 60 MG TABLET PO SCH (10:32)
[2017-05-27] MEDS: ASPIRIN EC 81 MG TABLET PO SCH (10:33)
[2017-05-27] MEDS: LOSARTAN 50 MG TABLET PO SCH (10:33)
[2017-05-27] MEDS: GABAPENTIN 100 MG CAPSULE PO SCH ×3 (10:33→20:48)
[2017-05-27] MEDS: amLODIPine 10 MG TABLET PO SCH (10:34)
[2017-05-27] MEDS: LUBIPROSTONE 24 MCG CAPSULE PO SCH ×2 (10:34→20:48)
[2017-05-27] MEDS: POTASSIUM CHLORIDE 10 MEQ TABLET PO SCH (10:34)
[2017-05-27] MEDS: ROSUVASTATIN 20 MG TABLET PO SCH (10:34)
[2017-05-27] MEDS: DOCUSATE SODIUM 100 MG CAPSULE PO SCH ×2 (10:34→20:48)
[2017-05-27] MEDS: PANTOPRAZOLE 40 MG TABLET PO SCH (10:34)
[2017-05-27] MEDS: KETOROLAC 15 MG/1 ML VIAL IV PRN (12:48)
[2017-05-27] MEDS: ENOXAPARIN 40 MG/0.4 ML SYRINGE SUBCUT SCH (15:48)
[2017-05-27] MEDS: oxyCODONE/ACETAMINOPHEN 5-325 MG TABLET PO PRN (20:54)
[2017-05-28] MEDS: PIPERACILLIN/TAZOBACTAM 3,375 MG in SODIUM CHLORIDE 0.9% 100 ML IV SCH ×3 (06:15→22:38)
[2017-05-28 06:29] LABS: Basophils % 0.1 % (0.0-0.8); Eosinophils # 0.3 10*3/uL (0.0-0.87); Eosinophils % 2.7 % (0.00-10.9); Immature Granulocytes % 0.4 %; Immature Granulocytes Absolute 0.04 #; Lymphocytes # 1.5 10*3/uL (1.4-4.0); Lymphocytes % 16.7 % (21.3-54.2); Mean Corpuscular HGB Conc 33.3 GM/DL (32-36); Mean Corpuscular Hemoglobin 28 PG (27-34); Mean Corpuscular Volume 82.6 FL (87-102); Mean Platelet Volume 10.2 FL (9.6-12.0); Neutrophils # 6.4 10*3/uL (1.4-7.4); Neutrophils % 69.1 % (38.7-73.9); Platelet Count 285 T/CUMM (130-400); Red Blood Count 3.27 MC/CUMM (3.8-5.5); Red Cell Distribution Width 13.3 % (9.3-17.3); White Blood Count 9.2 T/CUMM (4-12)
[2017-05-28] MEDS: LACTATED RINGERS 1,000 ML IV SCH ×4 (06:38→22:40)
[2017-05-28] MEDS: INSULIN LISPRO 100 UNIT/ML SUBCUT SCH ×3 (06:44→18:08)
[2017-05-28 06:57] LABS: Calcium 7.9 MG/DL (8.5-10.1); Osmolality,Calculated 280.4 MOS/KG (273-304); Potassium 3.5 MMOL/L (3.5-5.1)
[2017-05-28] MEDS: LOSARTAN 50 MG TABLET PO SCH (08:44)
[2017-05-28] MEDS: FUROSEMIDE 20 MG TABLET PO SCH (08:45)
[2017-05-28] MEDS: LUBIPROSTONE 24 MCG CAPSULE PO SCH ×2 (08:45→20:38)
[2017-05-28] MEDS: MEMANTINE 5 MG TABLET PO SCH ×2 (08:45→20:38)
[2017-05-28] MEDS: PANTOPRAZOLE 40 MG TABLET PO SCH (08:45)
[2017-05-28] MEDS: DOCUSATE SODIUM 100 MG CAPSULE PO SCH ×3 (08:45→20:38)
[2017-05-28] MEDS: amLODIPine 10 MG TABLET PO SCH (08:45)
[2017-05-28] MEDS: ASPIRIN EC 81 MG TABLET PO SCH (08:45)
[2017-05-28] MEDS: ISOSORBIDE MONONITRATE 60 MG TABLET PO SCH (08:45)
[2017-05-28] MEDS: ROSUVASTATIN 20 MG TABLET PO SCH (08:45)
[2017-05-28] MEDS: GABAPENTIN 100 MG CAPSULE PO SCH ×3 (08:45→20:37)
[2017-05-28] MEDS: INSULIN NPH/REGULAR 70/30 100 UNIT/ML SUBCUT SCH ×2 (08:45→20:42)
[2017-05-28] MEDS: POTASSIUM CHLORIDE 10 MEQ TABLET PO SCH (08:45)
[2017-05-28] MEDS: MAGNESIUM HYDROXIDE SUSP 30 ML UDCUP PO PRN (08:46)
[2017-05-28] MEDS: ENOXAPARIN 40 MG/0.4 ML SYRINGE SUBCUT SCH (15:08)
[2017-05-28] MEDS: oxyCODONE/ACETAMINOPHEN 5-325 MG TABLET PO PRN (15:10)
[2017-05-28] MEDS: KETOROLAC 15 MG/1 ML VIAL IV PRN (20:38)
[2017-05-29] MEDS: INSULIN LISPRO 100 UNIT/ML SUBCUT SCH ×4 (01:01→18:56)
[2017-05-29] MEDS: LACTATED RINGERS 1,000 ML IV SCH (06:10)
[2017-05-29] MEDS: PIPERACILLIN/TAZOBACTAM 3,375 MG in SODIUM CHLORIDE 0.9% 100 ML IV SCH ×2 (06:12→15:48)
[2017-05-29 06:56] LABS: Basophils % 0.2 % (0.0-0.8); Eosinophils # 0.2 10*3/uL (0.0-0.87); Eosinophils % 1.9 % (0.00-10.9); Hematocrit 28.6 VOL% (35.7-47.0); Hemoglobin 9.3 GM/DL (12.0-16.0); Immature Granulocytes % 0.6 %; Immature Granulocytes Absolute 0.07 #; Lymphocytes # 1.6 10*3/uL (1.4-4.0); Lymphocytes % 14.7 % (21.3-54.2); Mean Corpuscular HGB Conc 32.5 GM/DL (32-36); Mean Corpuscular Hemoglobin 27 PG (27-34); Mean Corpuscular Volume 82.4 FL (87-102); Mean Platelet Volume 10.3 FL (9.6-12.0); Monocytes # 1.3 10*3/uL (0.11-0.8); Monocytes % 11.7 % (1.7-12.7); Neutrophils # 7.8 10*3/uL (1.4-7.4); Neutrophils % 70.9 % (38.7-73.9); Platelet Count 336 T/CUMM (130-400); Red Blood Count 3.47 MC/CUMM (3.8-5.5); Red Cell Distribution Width 13.2 % (9.3-17.3)
[2017-05-29 07:21] LABS: Calcium 8.3 MG/DL (8.5-10.1); Osmolality,Calculated 275.5 MOS/KG (273-304); Potassium 3.6 MMOL/L (3.5-5.1)
[2017-05-29] MEDS: INSULIN NPH/REGULAR 70/30 100 UNIT/ML SUBCUT SCH ×2 (07:52→21:03)
[2017-05-29] MEDS: MEMANTINE 5 MG TABLET PO SCH ×2 (08:33→21:04)
[2017-05-29] MEDS: amLODIPine 10 MG TABLET PO SCH (08:33)
[2017-05-29] MEDS: PANTOPRAZOLE 40 MG TABLET PO SCH (08:33)
[2017-05-29] MEDS: DOCUSATE SODIUM 100 MG CAPSULE PO SCH ×2 (08:33→21:04)
[2017-05-29] MEDS: ISOSORBIDE MONONITRATE 60 MG TABLET PO SCH (08:33)
[2017-05-29] MEDS: GABAPENTIN 100 MG CAPSULE PO SCH ×3 (08:33→21:04)
[2017-05-29] MEDS: ROSUVASTATIN 20 MG TABLET PO SCH (08:33)
[2017-05-29] MEDS: POTASSIUM CHLORIDE 10 MEQ TABLET PO SCH (08:33)
[2017-05-29] MEDS: ASPIRIN EC 81 MG TABLET PO SCH (08:33)
[2017-05-29] MEDS: LUBIPROSTONE 24 MCG CAPSULE PO SCH ×2 (08:33→21:05)
[2017-05-29] MEDS: LOSARTAN 50 MG TABLET PO SCH (08:33)
[2017-05-29] MEDS: oxyCODONE/ACETAMINOPHEN 5-325 MG TABLET PO PRN (08:40)
[2017-05-29] MEDS: ENOXAPARIN 40 MG/0.4 ML SYRINGE SUBCUT SCH (15:49)
[2017-05-29] MEDS: LEVOFLOXACIN INJ 750 MG in PREMIX 1 EACH IV SCH (18:42)
[2017-05-29] MEDS: AMPICILLIN INJ 1,000 MG in SODIUM CHLORIDE 0.9% 100 ML IV SCH (21:01)
[2017-05-29] MEDS: KETOROLAC 15 MG/1 ML VIAL IV PRN (22:46)
[2017-05-30] MEDS: AMPICILLIN INJ 1,000 MG in SODIUM CHLORIDE 0.9% 100 ML IV SCH ×3 (02:28→18:23)
[2017-05-30] MEDS: INSULIN LISPRO 100 UNIT/ML SUBCUT SCH ×2 (02:28→06:05)
[2017-05-30] MEDS: oxyCODONE/ACETAMINOPHEN 5-325 MG TABLET PO PRN ×3 (02:53→19:26)
[2017-05-30 04:55] LABS: Basophils % 0.1 % (0.0-0.8); Eosinophils # 0.1 10*3/uL (0.0-0.87); Eosinophils % 0.8 % (0.00-10.9); Hematocrit 26.6 VOL% (35.7-47.0); Hemoglobin 9.1 GM/DL (12.0-16.0); Immature Granulocytes % 0.4 %; Immature Granulocytes Absolute 0.05 #; Lymphocytes # 1.9 10*3/uL (1.4-4.0); Lymphocytes % 16.9 % (21.3-54.2); Mean Corpuscular HGB Conc 34.2 GM/DL (32-36); Mean Corpuscular Hemoglobin 28 PG (27-34); Mean Corpuscular Volume 80.9 FL (87-102); Mean Platelet Volume 10.1 FL (9.6-12.0); Monocytes # 1.1 10*3/uL (0.11-0.8); Neutrophils # 8.2 10*3/uL (1.4-7.4); Neutrophils % 71.8 % (38.7-73.9); Platelet Count 339 T/CUMM (130-400); Red Blood Count 3.29 MC/CUMM (3.8-5.5); Red Cell Distribution Width 13.3 % (9.3-17.3); White Blood Count 11.5 T/CUMM (4-12)
[2017-05-30 05:28] LABS: Osmolality,Calculated 278.5 MOS/KG (273-304); Potassium 3.7 MMOL/L (3.5-5.1)
[2017-05-30] MEDS: LACTATED RINGERS 1,000 ML IV SCH (06:31)
[2017-05-30] MEDS ORDERED: CLINDAMYCIN INJ 900 MG in PREMIX 1 EACH IV ONE (07:38)
[2017-05-30] MEDS: INSULIN NPH/REGULAR 70/30 100 UNIT/ML SUBCUT SCH ×2 (08:04→23:38)
[2017-05-30] MEDS: DOCUSATE SODIUM 100 MG CAPSULE PO SCH ×3 (08:05→23:36)
[2017-05-30] MEDS: FUROSEMIDE 20 MG TABLET PO SCH (08:05)
[2017-05-30] MEDS: LOSARTAN 50 MG TABLET PO SCH (08:07)
[2017-05-30] MEDS: LUBIPROSTONE 24 MCG CAPSULE PO SCH ×2 (08:07→23:36)
[2017-05-30] MEDS: ASPIRIN EC 81 MG TABLET PO SCH (08:07)
[2017-05-30] MEDS: ROSUVASTATIN 20 MG TABLET PO SCH (08:09)
[2017-05-30] MEDS: MEMANTINE 5 MG TABLET PO SCH ×2 (08:10→23:36)
[2017-05-30] MEDS: PANTOPRAZOLE 40 MG TABLET PO SCH (08:10)
[2017-05-30] MEDS: POTASSIUM CHLORIDE 10 MEQ TABLET PO SCH (08:10)
[2017-05-30] MEDS: GABAPENTIN 100 MG CAPSULE PO SCH ×3 (08:11→23:36)
[2017-05-30] MEDS: ISOSORBIDE MONONITRATE 60 MG TABLET PO SCH (08:49)
[2017-05-30] MEDS: amLODIPine 10 MG TABLET PO SCH (08:49)
[2017-05-30] MEDS ORDERED: CLINDAMYCIN INJ 50 ML IV ONE (09:22)
[2017-05-30] MEDS ORDERED: fentaNYL 100 MCG/2 ML VIAL ONE (10:22)
[2017-05-30] MEDS ORDERED: PROPOFOL 200 MG/20 ML VIAL IV ONE (10:22)
[2017-05-30] MEDS ORDERED: ONDANSETRON 4 MG/2 ML VIAL ONE (10:22)
[2017-05-30] MEDS ORDERED: SEVOFLURANE 1 UNIT/15 MINUTE INH ONE (10:22)
[2017-05-30] MEDS ORDERED: PHENYLEPHRINE 1 MG/10 ML SYRINGE IV ONE (10:23)
[2017-05-30] MEDS ORDERED: GLUCAGON 1 MG VIAL IM PRN (11:55)
[2017-05-30] MEDS ORDERED: DEXTROSE 50% 25 GM/50 ML VIAL IV PRN (11:55)
[2017-05-30] MEDS: INSULIN REGULAR 100 UNIT/ML SUBCUT SCH ×3 (12:34→23:39)
[2017-05-30] MEDS: MORPHINE 2 MG/1 ML SYRINGE IV PRN ×2 (14:30→22:35)
[2017-05-30] MEDS: ENOXAPARIN 40 MG/0.4 ML SYRINGE SUBCUT SCH (16:10)
[2017-05-30] MEDS: LEVOFLOXACIN INJ 750 MG in PREMIX 1 EACH IV SCH (16:59)
[2017-05-31] MEDS: AMPICILLIN INJ 1,000 MG in SODIUM CHLORIDE 0.9% 100 ML IV SCH ×3 (04:13→18:27)
[2017-05-31 05:21] LABS: Basophils % 0.2 % (0.0-0.8); Eosinophils # 0.1 10*3/uL (0.0-0.87); Eosinophils % 0.9 % (0.00-10.9); Hematocrit 26.4 VOL% (35.7-47.0); Hemoglobin 8.5 GM/DL (12.0-16.0); Immature Granulocytes % 0.5 %; Immature Granulocytes Absolute 0.05 #; Lymphocytes # 1.3 10*3/uL (1.4-4.0); Lymphocytes % 12.5 % (21.3-54.2); Mean Corpuscular HGB Conc 32.2 GM/DL (32-36); Mean Corpuscular Hemoglobin 27 PG (27-34); Monocytes % 9.8 % (1.7-12.7); Neutrophils % 76.1 % (38.7-73.9); Platelet Count 381 T/CUMM (130-400); Red Blood Count 3.18 MC/CUMM (3.8-5.5); Red Cell Distribution Width 13.4 % (9.3-17.3); White Blood Count 10.5 T/CUMM (4-12)
[2017-05-31 06:02] LABS: Calcium 7.9 MG/DL (8.5-10.1); Osmolality,Calculated 274.5 MOS/KG (273-304); Potassium 3.8 MMOL/L (3.5-5.1)
[2017-05-31] MEDS: INSULIN REGULAR 100 UNIT/ML SUBCUT SCH ×4 (07:19→21:55)
[2017-05-31] MEDS: INSULIN NPH/REGULAR 70/30 100 UNIT/ML SUBCUT SCH ×2 (07:19→21:50)
[2017-05-31] MEDS: MORPHINE 2 MG/1 ML SYRINGE IV PRN (07:52)
[2017-05-31] MEDS: LOSARTAN 50 MG TABLET PO SCH (09:57)
[2017-05-31] MEDS: PANTOPRAZOLE 40 MG TABLET PO SCH (09:57)
[2017-05-31] MEDS: ROSUVASTATIN 20 MG TABLET PO SCH (09:57)
[2017-05-31] MEDS: amLODIPine 10 MG TABLET PO SCH (09:57)
[2017-05-31] MEDS: MEMANTINE 5 MG TABLET PO SCH ×2 (09:57→21:47)
[2017-05-31] MEDS: ISOSORBIDE MONONITRATE 60 MG TABLET PO SCH (09:57)
[2017-05-31] MEDS: ACETAMINOPHEN 325 MG TABLET PO PRN (09:57)
[2017-05-31] MEDS: POTASSIUM CHLORIDE 10 MEQ TABLET PO SCH (09:58)
[2017-05-31] MEDS: DOCUSATE SODIUM 100 MG CAPSULE PO SCH ×2 (09:58→21:47)
[2017-05-31] MEDS: LUBIPROSTONE 24 MCG CAPSULE PO SCH ×2 (09:58→21:47)
[2017-05-31] MEDS: GABAPENTIN 100 MG CAPSULE PO SCH ×3 (09:58→21:47)
[2017-05-31] MEDS: ASPIRIN EC 81 MG TABLET PO SCH (09:58)
[2017-05-31] MEDS: oxyCODONE/ACETAMINOPHEN 5-325 MG TABLET PO PRN ×2 (11:33→21:48)
[2017-05-31] MEDS: ENOXAPARIN 40 MG/0.4 ML SYRINGE SUBCUT SCH (16:29)
[2017-05-31] MEDS: LEVOFLOXACIN INJ 750 MG in PREMIX 1 EACH IV SCH (16:29)
[2017-05-31 17:04] LABS: Apearance,Urine Slightly Hazy (Clear); Bilirubin,Urine Negative (Negative); Blood, Urine Moderate mg/dL (Negative); Glucose,Urine (UA) Negative (Negative); Ketones,Urine Negative (Negative); Nitrite,Urine Negative (Negative); Protein,Urine Negative; RBC,Urine 7 /HPF (0-4); Squamous Epithelial Cell,Urine Occasional /HPF (0-10); Urine Color Yellow (Yellow); Urine Specific Gravity 1.011 (1.001-1.035); Urine Urobilinogen < 2.0 EU/DL (0.2-1.0); WBC,Urine 5 /HPF (0-6)
[2017-06-01 05:05] LABS: Basophils % 0.2 % (0.0-0.8); Eosinophils # 0.1 10*3/uL (0.0-0.87); Eosinophils % 1.1 % (0.00-10.9); Hemoglobin 8.4 GM/DL (12.0-16.0); Immature Granulocytes % 0.5 %; Immature Granulocytes Absolute 0.06 #; Lymphocytes # 1.8 10*3/uL (1.4-4.0); Lymphocytes % 16.1 % (21.3-54.2); Mean Corpuscular HGB Conc 32.3 GM/DL (32-36); Mean Corpuscular Hemoglobin 27 PG (27-34); Mean Corpuscular Volume 83.6 FL (87-102); Mean Platelet Volume 9.8 FL (9.6-12.0); Monocytes # 1.2 10*3/uL (0.11-0.8); Monocytes % 10.9 % (1.7-12.7); Neutrophils % 71.2 % (38.7-73.9); Platelet Count 402 T/CUMM (130-400); Red Blood Count 3.11 MC/CUMM (3.8-5.5); Red Cell Distribution Width 13.8 % (9.3-17.3); White Blood Count 11.2 T/CUMM (4-12)
[2017-06-01] MEDS: oxyCODONE/ACETAMINOPHEN 5-325 MG TABLET PO PRN (05:30)
[2017-06-01 05:46] LABS: Potassium 3.8 MMOL/L (3.5-5.1)
[2017-06-01] MEDS: MORPHINE 4 MG/1 ML VIAL IV PRN ×3 (06:54→21:10)
[2017-06-01] MEDS: AMPICILLIN INJ 1,000 MG in SODIUM CHLORIDE 0.9% 100 ML IV SCH ×3 (07:01→21:13)
[2017-06-01] MEDS ORDERED: hydrALAZINE 20 MG/1 ML VIAL IV PRN (07:56)
[2017-06-01] MEDS: INSULIN REGULAR 100 UNIT/ML SUBCUT SCH ×4 (08:57→21:08)
[2017-06-01] MEDS: INSULIN NPH/REGULAR 70/30 100 UNIT/ML SUBCUT SCH ×2 (09:41→21:09)
[2017-06-01] MEDS: LUBIPROSTONE 24 MCG CAPSULE PO SCH ×2 (09:43→21:08)
[2017-06-01] MEDS: LOSARTAN 50 MG TABLET PO SCH (09:43)
[2017-06-01] MEDS: ISOSORBIDE MONONITRATE 60 MG TABLET PO SCH (09:43)
[2017-06-01] MEDS: PANTOPRAZOLE 40 MG TABLET PO SCH (09:43)
[2017-06-01] MEDS: GABAPENTIN 100 MG CAPSULE PO SCH ×3 (09:43→21:07)
[2017-06-01] MEDS: ASPIRIN EC 81 MG TABLET PO SCH (09:43)
[2017-06-01] MEDS: amLODIPine 10 MG TABLET PO SCH (09:43)
[2017-06-01] MEDS: ROSUVASTATIN 20 MG TABLET PO SCH (09:43)
[2017-06-01] MEDS: FUROSEMIDE 20 MG TABLET PO SCH (09:43)
[2017-06-01] MEDS: MEMANTINE 5 MG TABLET PO SCH ×2 (09:43→21:08)
[2017-06-01] MEDS: DOCUSATE SODIUM 100 MG CAPSULE PO SCH ×2 (09:44→21:08)
[2017-06-01] MEDS: POTASSIUM CHLORIDE 10 MEQ TABLET PO SCH (09:44)
[2017-06-01] MEDS: ENOXAPARIN 40 MG/0.4 ML SYRINGE SUBCUT SCH (15:57)
[2017-06-01] MEDS: LEVOFLOXACIN INJ 750 MG in PREMIX 1 EACH IV SCH (17:05)
[2017-06-02] MEDS: oxyCODONE/ACETAMINOPHEN 5-325 MG TABLET PO PRN (00:07)
[2017-06-02] MEDS: MORPHINE 4 MG/1 ML VIAL IV PRN ×4 (03:58→22:04)
[2017-06-02] MEDS: AMPICILLIN INJ 1,000 MG in SODIUM CHLORIDE 0.9% 100 ML IV SCH ×3 (06:16→20:59)
[2017-06-02] MEDS: INSULIN REGULAR 100 UNIT/ML SUBCUT SCH ×4 (08:21→20:58)
[2017-06-02] MEDS: INSULIN NPH/REGULAR 70/30 100 UNIT/ML SUBCUT SCH ×2 (08:44→20:59)
[2017-06-02] MEDS: ASPIRIN EC 81 MG TABLET PO SCH (08:45)
[2017-06-02] MEDS: POTASSIUM CHLORIDE 10 MEQ TABLET PO SCH (08:45)
[2017-06-02] MEDS: amLODIPine 10 MG TABLET PO SCH (08:46)
[2017-06-02] MEDS: LOSARTAN 50 MG TABLET PO SCH (08:46)
[2017-06-02] MEDS: DOCUSATE SODIUM 100 MG CAPSULE PO SCH ×2 (08:46→20:58)
[2017-06-02] MEDS: ISOSORBIDE MONONITRATE 60 MG TABLET PO SCH (08:46)
[2017-06-02] MEDS: LUBIPROSTONE 24 MCG CAPSULE PO SCH ×2 (08:46→20:58)
[2017-06-02] MEDS: ROSUVASTATIN 20 MG TABLET PO SCH (08:46)
[2017-06-02] MEDS: MEMANTINE 5 MG TABLET PO SCH ×2 (08:46→20:58)
[2017-06-02] MEDS: PANTOPRAZOLE 40 MG TABLET PO SCH (08:46)
[2017-06-02] MEDS: GABAPENTIN 100 MG CAPSULE PO SCH ×3 (08:59→20:58)
[2017-06-02] MEDS: ENOXAPARIN 40 MG/0.4 ML SYRINGE SUBCUT SCH (15:25)
[2017-06-02] MEDS: LEVOFLOXACIN INJ 750 MG in PREMIX 1 EACH IV SCH (16:27)
[2017-06-02] MEDS: ACETAMINOPHEN 325 MG TABLET PO PRN (21:09)
[2017-06-03] MEDS: MORPHINE 4 MG/1 ML VIAL IV PRN ×3 (03:32→21:15)
[2017-06-03 05:27] LABS: Basophils % 0.1 % (0.0-0.8); Eosinophils # 0.3 10*3/uL (0.0-0.87); Eosinophils % 3.1 % (0.00-10.9); Hematocrit 25.8 VOL% (35.7-47.0); Hemoglobin 8.1 GM/DL (12.0-16.0); Immature Granulocytes % 0.6 %; Immature Granulocytes Absolute 0.06 #; Lymphocytes % 20.6 % (21.3-54.2); Mean Corpuscular HGB Conc 31.4 GM/DL (32-36); Mean Corpuscular Hemoglobin 26 PG (27-34); Mean Platelet Volume 9.6 FL (9.6-12.0); Monocytes % 10.4 % (1.7-12.7); Neutrophils # 6.2 10*3/uL (1.4-7.4); Neutrophils % 65.2 % (38.7-73.9); Platelet Count 452 T/CUMM (130-400); Red Blood Count 3.07 MC/CUMM (3.8-5.5); White Blood Count 9.6 T/CUMM (4-12)
[2017-06-03] MEDS: AMPICILLIN INJ 1,000 MG in SODIUM CHLORIDE 0.9% 100 ML IV SCH ×3 (05:34→21:17)
[2017-06-03 06:02] LABS: Albumin 1.6 G/DL (3.4-5.0); Bilirubin,Total 0.6 MG/DL (0.2-1.0); Calcium 8.1 MG/DL (8.5-10.1); Osmolality,Calculated 278.4 MOS/KG (273-304); Total Protein 5.5 G/DL (6.4-8.3)
[2017-06-03] MEDS: INSULIN NPH/REGULAR 70/30 100 UNIT/ML SUBCUT SCH ×2 (09:05→21:14)
[2017-06-03] MEDS: MEMANTINE 5 MG TABLET PO SCH ×2 (09:06→21:14)
[2017-06-03] MEDS: LOSARTAN 50 MG TABLET PO SCH (09:06)
[2017-06-03] MEDS: FUROSEMIDE 20 MG TABLET PO SCH (09:06)
[2017-06-03] MEDS: ISOSORBIDE MONONITRATE 60 MG TABLET PO SCH (09:06)
[2017-06-03] MEDS: POTASSIUM CHLORIDE 10 MEQ TABLET PO SCH (09:06)
[2017-06-03] MEDS: amLODIPine 10 MG TABLET PO SCH (09:07)
[2017-06-03] MEDS: LUBIPROSTONE 24 MCG CAPSULE PO SCH ×2 (09:07→21:14)
[2017-06-03] MEDS: ASPIRIN EC 81 MG TABLET PO SCH (09:07)
[2017-06-03] MEDS: PANTOPRAZOLE 40 MG TABLET PO SCH (09:07)
[2017-06-03] MEDS: INSULIN REGULAR 100 UNIT/ML SUBCUT SCH ×4 (09:07→21:15)
[2017-06-03] MEDS: DOCUSATE SODIUM 100 MG CAPSULE PO SCH ×2 (09:07→21:14)
[2017-06-03] MEDS: GABAPENTIN 100 MG CAPSULE PO SCH ×3 (09:07→21:26)
[2017-06-03] MEDS: ROSUVASTATIN 20 MG TABLET PO SCH (09:07)
[2017-06-03] MEDS: ENOXAPARIN 40 MG/0.4 ML SYRINGE SUBCUT SCH (14:37)
[2017-06-03] MEDS: MAGNESIUM HYDROXIDE SUSP 30 ML UDCUP PO PRN (14:38)
[2017-06-03] MEDS: LEVOFLOXACIN INJ 750 MG in PREMIX 1 EACH IV SCH (18:03)
[2017-06-04] MEDS: MORPHINE 4 MG/1 ML VIAL IV PRN ×4 (01:15→21:39)
[2017-06-04 05:36] LABS: Basophils % 0.2 % (0.0-0.8); Eosinophils # 0.3 10*3/uL (0.0-0.87); Eosinophils % 2.9 % (0.00-10.9); Hematocrit 25.9 VOL% (35.7-47.0); Hemoglobin 8.5 GM/DL (12.0-16.0); Immature Granulocytes % 0.5 %; Immature Granulocytes Absolute 0.05 #; Lymphocytes # 2.1 10*3/uL (1.4-4.0); Lymphocytes % 22.2 % (21.3-54.2); Mean Corpuscular HGB Conc 32.8 GM/DL (32-36); Mean Corpuscular Hemoglobin 27 PG (27-34); Mean Platelet Volume 9.5 FL (9.6-12.0); Monocytes % 11.1 % (1.7-12.7); Neutrophils # 5.9 10*3/uL (1.4-7.4); Neutrophils % 63.1 % (38.7-73.9); Platelet Count 504 T/CUMM (130-400); Red Blood Count 3.16 MC/CUMM (3.8-5.5); Red Cell Distribution Width 13.9 % (9.3-17.3); White Blood Count 9.4 T/CUMM (4-12)
[2017-06-04] MEDS: AMPICILLIN INJ 1,000 MG in SODIUM CHLORIDE 0.9% 100 ML IV SCH (06:06)
[2017-06-04] MEDS: MEMANTINE 5 MG TABLET PO SCH ×2 (08:40→21:33)
[2017-06-04] MEDS: LUBIPROSTONE 24 MCG CAPSULE PO SCH ×2 (08:41→21:32)
[2017-06-04] MEDS: amLODIPine 10 MG TABLET PO SCH (08:41)
[2017-06-04] MEDS: PANTOPRAZOLE 40 MG TABLET PO SCH (08:41)
[2017-06-04] MEDS: LOSARTAN 50 MG TABLET PO SCH (08:41)
[2017-06-04] MEDS: ISOSORBIDE MONONITRATE 60 MG TABLET PO SCH (08:42)
[2017-06-04] MEDS: DOCUSATE SODIUM 100 MG CAPSULE PO SCH ×2 (08:42→21:33)
[2017-06-04] MEDS: GABAPENTIN 100 MG CAPSULE PO SCH ×3 (08:42→21:32)
[2017-06-04] MEDS: ASPIRIN EC 81 MG TABLET PO SCH (08:43)
[2017-06-04] MEDS: NITROFURANTOIN MACRO/MONO 100 MG CAPSULE PO SCH ×2 (08:43→21:32)
[2017-06-04] MEDS: POTASSIUM CHLORIDE 10 MEQ TABLET PO SCH (08:43)
[2017-06-04] MEDS: ROSUVASTATIN 20 MG TABLET PO SCH (08:43)
[2017-06-04] MEDS: INSULIN NPH/REGULAR 70/30 100 UNIT/ML SUBCUT SCH ×2 (08:45→21:32)
[2017-06-04] MEDS: INSULIN REGULAR 100 UNIT/ML SUBCUT SCH ×4 (08:46→21:31)
[2017-06-04] MEDS: ENOXAPARIN 40 MG/0.4 ML SYRINGE SUBCUT SCH (16:48)
[2017-06-05] MEDS: MORPHINE 4 MG/1 ML VIAL IV PRN ×2 (04:21→12:23)
[2017-06-05 05:29] LABS: Basophils % 0.1 % (0.0-0.8); Eosinophils # 0.3 10*3/uL (0.0-0.87); Eosinophils % 3.7 % (0.00-10.9); Hematocrit 26.9 VOL% (35.7-47.0); Hemoglobin 8.5 GM/DL (12.0-16.0); Immature Granulocytes % 0.4 %; Immature Granulocytes Absolute 0.03 #; Lymphocytes % 23.9 % (21.3-54.2); Mean Corpuscular HGB Conc 31.6 GM/DL (32-36); Mean Corpuscular Hemoglobin 27 PG (27-34); Mean Corpuscular Volume 84.6 FL (87-102); Mean Platelet Volume 9.4 FL (9.6-12.0); Monocytes # 0.9 10*3/uL (0.11-0.8); Monocytes % 10.9 % (1.7-12.7); Platelet Count 501 T/CUMM (130-400); Red Blood Count 3.18 MC/CUMM (3.8-5.5); Red Cell Distribution Width 13.9 % (9.3-17.3); White Blood Count 8.2 T/CUMM (4-12)
[2017-06-05 06:03] LABS: Calcium 8.3 MG/DL (8.5-10.1); Osmolality,Calculated 284.3 MOS/KG (273-304); Potassium 4.2 MMOL/L (3.5-5.1)
[2017-06-05] MEDS: INSULIN NPH/REGULAR 70/30 100 UNIT/ML SUBCUT SCH ×2 (09:03→20:26)
[2017-06-05] MEDS: INSULIN REGULAR 100 UNIT/ML SUBCUT SCH ×4 (09:04→20:25)
[2017-06-05] MEDS: MEMANTINE 5 MG TABLET PO SCH ×2 (09:05→20:25)
[2017-06-05] MEDS: POTASSIUM CHLORIDE 10 MEQ TABLET PO SCH (09:05)
[2017-06-05] MEDS: NITROFURANTOIN MACRO/MONO 100 MG CAPSULE PO SCH ×2 (09:05→20:25)
[2017-06-05] MEDS: amLODIPine 10 MG TABLET PO SCH (09:05)
[2017-06-05] MEDS: LOSARTAN 50 MG TABLET PO SCH (09:05)
[2017-06-05] MEDS: LUBIPROSTONE 24 MCG CAPSULE PO SCH ×2 (09:06→20:25)
[2017-06-05] MEDS: ISOSORBIDE MONONITRATE 60 MG TABLET PO SCH (09:06)
[2017-06-05] MEDS: DOCUSATE SODIUM 100 MG CAPSULE PO SCH ×2 (09:06→20:25)
[2017-06-05] MEDS: GABAPENTIN 100 MG CAPSULE PO SCH ×3 (09:06→20:25)
[2017-06-05] MEDS: ROSUVASTATIN 20 MG TABLET PO SCH (09:06)
[2017-06-05] MEDS: PANTOPRAZOLE 40 MG TABLET PO SCH (09:07)
[2017-06-05] MEDS: FUROSEMIDE 20 MG TABLET PO SCH (09:07)
[2017-06-05] MEDS: ASPIRIN EC 81 MG TABLET PO SCH (09:07)
[2017-06-05] MEDS: MAGNESIUM HYDROXIDE SUSP 30 ML UDCUP PO PRN ×2 (09:08→17:42)
[2017-06-05] MEDS: ENOXAPARIN 40 MG/0.4 ML SYRINGE SUBCUT SCH (17:45)
[2017-06-06] MEDS: ASPIRIN EC 81 MG TABLET PO SCH (09:25)
[2017-06-06] MEDS: DOCUSATE SODIUM 100 MG CAPSULE PO SCH ×2 (09:26→21:35)
[2017-06-06] MEDS: LOSARTAN 50 MG TABLET PO SCH (09:26)
[2017-06-06] MEDS: GABAPENTIN 100 MG CAPSULE PO SCH ×3 (09:26→21:35)
[2017-06-06] MEDS: PANTOPRAZOLE 40 MG TABLET PO SCH (09:26)
[2017-06-06] MEDS: MEMANTINE 5 MG TABLET PO SCH ×2 (09:26→21:35)
[2017-06-06] MEDS: ISOSORBIDE MONONITRATE 60 MG TABLET PO SCH (09:26)
[2017-06-06] MEDS: NITROFURANTOIN MACRO/MONO 100 MG CAPSULE PO SCH ×2 (09:26→21:35)
[2017-06-06] MEDS: LUBIPROSTONE 24 MCG CAPSULE PO SCH ×2 (09:26→21:35)
[2017-06-06] MEDS: ROSUVASTATIN 20 MG TABLET PO SCH (09:26)
[2017-06-06] MEDS: INSULIN NPH/REGULAR 70/30 100 UNIT/ML SUBCUT SCH ×2 (09:27→21:36)
[2017-06-06] MEDS: INSULIN REGULAR 100 UNIT/ML SUBCUT SCH ×4 (09:27→21:35)
[2017-06-06] MEDS: POTASSIUM CHLORIDE 10 MEQ TABLET PO SCH (09:27)
[2017-06-06] MEDS: amLODIPine 10 MG TABLET PO SCH (10:10)
[2017-06-06] MEDS: ENOXAPARIN 40 MG/0.4 ML SYRINGE SUBCUT SCH (15:14)
[2017-06-07 05:17] LABS: Basophils % 0.2 % (0.0-0.8); Eosinophils # 0.3 10*3/uL (0.0-0.87); Eosinophils % 3.5 % (0.00-10.9); Hematocrit 28.2 VOL% (35.7-47.0); Hemoglobin 9.1 GM/DL (12.0-16.0); Immature Granulocytes % 0.4 %; Immature Granulocytes Absolute 0.03 #; Lymphocytes # 1.8 10*3/uL (1.4-4.0); Lymphocytes % 22.8 % (21.3-54.2); Mean Corpuscular HGB Conc 32.3 GM/DL (32-36); Mean Corpuscular Hemoglobin 26 PG (27-34); Mean Corpuscular Volume 81.7 FL (87-102); Mean Platelet Volume 8.9 FL (9.6-12.0); Monocytes # 0.8 10*3/uL (0.11-0.8); Monocytes % 10.4 % (1.7-12.7); Neutrophils % 62.7 % (38.7-73.9); Platelet Count 504 T/CUMM (130-400); Red Blood Count 3.45 MC/CUMM (3.8-5.5); Red Cell Distribution Width 13.9 % (9.3-17.3)
[2017-06-07 05:45] LABS: Calcium 8.6 MG/DL (8.5-10.1); Osmolality,Calculated 279.4 MOS/KG (273-304)
[2017-06-07] MEDS: LUBIPROSTONE 24 MCG CAPSULE PO SCH ×2 (10:25→20:30)
[2017-06-07] MEDS: DOCUSATE SODIUM 100 MG CAPSULE PO SCH ×2 (10:25→20:30)
[2017-06-07] MEDS: NITROFURANTOIN MACRO/MONO 100 MG CAPSULE PO SCH ×2 (10:25→20:30)
[2017-06-07] MEDS: GABAPENTIN 100 MG CAPSULE PO SCH ×3 (10:25→20:30)
[2017-06-07] MEDS: INSULIN NPH/REGULAR 70/30 100 UNIT/ML SUBCUT SCH ×2 (10:25→20:30)
[2017-06-07] MEDS: amLODIPine 10 MG TABLET PO SCH (10:25)
[2017-06-07] MEDS: POTASSIUM CHLORIDE 10 MEQ TABLET PO SCH (10:26)
[2017-06-07] MEDS: INSULIN REGULAR 100 UNIT/ML SUBCUT SCH ×4 (10:26→20:30)
[2017-06-07] MEDS: ASPIRIN EC 81 MG TABLET PO SCH (10:26)
[2017-06-07] MEDS: PANTOPRAZOLE 40 MG TABLET PO SCH (10:26)
[2017-06-07] MEDS: ISOSORBIDE MONONITRATE 60 MG TABLET PO SCH (10:26)
[2017-06-07] MEDS: LOSARTAN 50 MG TABLET PO SCH (10:26)
[2017-06-07] MEDS: FUROSEMIDE 20 MG TABLET PO SCH (10:26)
[2017-06-07] MEDS: MEMANTINE 5 MG TABLET PO SCH ×2 (10:26→21:25)
[2017-06-07] MEDS: ROSUVASTATIN 20 MG TABLET PO SCH (10:26)
[2017-06-07] MEDS: MAGNESIUM HYDROXIDE SUSP 30 ML UDCUP PO PRN (13:58)
[2017-06-07] MEDS: ENOXAPARIN 40 MG/0.4 ML SYRINGE SUBCUT SCH (15:18)
[2017-06-08] MEDS: INSULIN REGULAR 100 UNIT/ML SUBCUT SCH ×2 (08:05→11:24)
[2017-06-08] MEDS: INSULIN NPH/REGULAR 70/30 100 UNIT/ML SUBCUT SCH (09:03)
[2017-06-08] MEDS: ISOSORBIDE MONONITRATE 60 MG TABLET PO SCH (09:03)
[2017-06-08] MEDS: GABAPENTIN 100 MG CAPSULE PO SCH (09:04)
[2017-06-08] MEDS: LUBIPROSTONE 24 MCG CAPSULE PO SCH (09:04)
[2017-06-08] MEDS: NITROFURANTOIN MACRO/MONO 100 MG CAPSULE PO SCH (09:05)
[2017-06-08] MEDS: MEMANTINE 5 MG TABLET PO SCH (09:05)
[2017-06-08] MEDS: ASPIRIN EC 81 MG TABLET PO SCH (09:05)
[2017-06-08] MEDS: LOSARTAN 50 MG TABLET PO SCH (09:05)
[2017-06-08] MEDS: POTASSIUM CHLORIDE 10 MEQ TABLET PO SCH (09:05)
[2017-06-08] MEDS: PANTOPRAZOLE 40 MG TABLET PO SCH (09:05)
[2017-06-08] MEDS: ROSUVASTATIN 20 MG TABLET PO SCH (09:05)
[2017-06-08] MEDS: amLODIPine 10 MG TABLET PO SCH (09:05)
[2017-06-08] MEDS: DOCUSATE SODIUM 100 MG CAPSULE PO SCH (09:05)
[2017-06-08] MEDS ORDERED: BISACODYL 10 MG SUPP RECTAL ONE (10:40)
[2017-06-08] MEDS: MORPHINE 4 MG/1 ML VIAL IV PRN (10:48)
[2017-06-08] MEDS ORDERED: MAGNESIUM CITRATE 300 ML BOTTLE PO ONE (10:50)
[2017-06-08 11:25] VITALS: BP 116/64
== END 2017-06-08 13:45 | disposition swing bed (61) | DRG 240 ==
LOC: N.ED 17:57 → N.EDINP 22:23 → N.3E 22:25
PROVIDERS: ADMIT Surgery; ATTEND Surgery

== ENCOUNTER 2017-08-16 09:25 | Inpatient (IN) ==
[2017-08-16] MEDS ORDERED: DEXTROSE 50% 25 GM/50 ML VIAL IV PRN (09:56)
[2017-08-16] MEDS ORDERED: GLUCAGON 1 MG VIAL IM PRN (09:56)
[2017-08-16 13:15] LABS: Basophils % 0.2 % (0.0-0.8); Eosinophils # 0.4 10*3/uL (0.0-0.87); Eosinophils % 3.6 % (0.00-10.9); Hematocrit 31.6 VOL% (35.7-47.0); Hemoglobin 10.1 GM/DL (12.0-16.0); Immature Granulocytes % 0.3 %; Immature Granulocytes Absolute 0.04 #; Lymphocytes % 17.6 % (21.3-54.2); Mean Corpuscular Hemoglobin 27 PG (27-34); Mean Corpuscular Volume 84.5 FL (87-102); Mean Platelet Volume 9.7 FL (9.6-12.0); Monocytes # 0.7 10*3/uL (0.11-0.8); Monocytes % 6.4 % (1.7-12.7); Neutrophils # 8.3 10*3/uL (1.4-7.4); Neutrophils % 71.9 % (38.7-73.9); Platelet Count 320 T/CUMM (130-400); Red Blood Count 3.74 MC/CUMM (3.8-5.5); Red Cell Distribution Width 14.5 % (9.3-17.3); White Blood Count 11.5 T/CUMM (4-12)
[2017-08-16] MEDS: PIPERACILLIN/TAZOBACTAM 3,375 MG in SODIUM CHLORIDE 0.9% 100 ML IV SCH ×2 (13:20→21:25)
[2017-08-16 13:37] LABS: Lactic Acid 2.1 MMOL/L (0.4-2.0)
[2017-08-16 13:42] LABS: Alanine Aminotransferase 15 U/L (13-56); Albumin 2.6 G/DL (3.4-5.0); Alkaline Phosphatase 101 U/L (45-117); Aspartate Amino Transferase 17 U/L (0-37); Bilirubin,Total < 0.39 MG/DL (0.2-1.0); Blood Urea Nitrogen 21 MG/DL (7-18); Calcium 8.8 MG/DL (8.5-10.1); Glucose 131 MG/DL (74-106); Osmolality,Calculated 277.8 MOS/KG (273-304); Potassium 4.2 MMOL/L (3.5-5.1); Sodium 137 MMOL/L (136-145); Total Protein 7.8 G/DL (6.4-8.3)
[2017-08-16] MEDS ORDERED: ONDANSETRON 4 MG/2 ML VIAL IV PRN (13:58)
[2017-08-16] MEDS ORDERED: hydrALAZINE 25 MG TABLET PO PRN (13:59)
[2017-08-16] MEDS: ALBUTEROL/IPRATROPIUM 3 ML NEB RESP TX SCH ×3 (14:45→23:06)
[2017-08-16] MEDS: GABAPENTIN 100 MG CAPSULE PO SCH ×2 (14:48→21:25)
[2017-08-16] MEDS: INSULIN LISPRO 100 UNIT/ML SUBCUT SCH (17:15)
[2017-08-16] MEDS: VANCOMYCIN INJ 1,250 MG in SODIUM CHLORIDE 0.9% 250 ML IV SCH (17:16)
[2017-08-16 19:17] LABS: Apearance,Urine Slightly Hazy (Clear); Bacteria,Urine Occasional /HPF (Few); Bilirubin,Urine Negative (Negative); Blood, Urine Negative (Negative); Glucose,Urine (UA) Negative (Negative); Ketones,Urine Negative (Negative); Mucus,Urine Occasional /LPF (Occasional); Nitrite,Urine Negative (Negative); Protein,Urine Negative; RBC,Urine 87 /HPF (0-4); Squamous Epithelial Cell,Urine Occasional /HPF (0-10); Urine Color Yellow (Yellow); Urine Urobilinogen < 2.0 EU/DL (0.2-1.0); WBC,Urine 64 /HPF (0-6)
[2017-08-16] MEDS ORDERED: INSULIN NPH 100 UNIT/ML SUBCUT SCH (21:00)
[2017-08-16] MEDS: MEMANTINE 5 MG TABLET PO SCH (21:25)
[2017-08-16] MEDS: ATORVASTATIN 80 MG TABLET PO SCH (21:25)
[2017-08-17] MEDS: LACTATED RINGERS 1,000 ML IV SCH ×3 (01:10→18:55)
[2017-08-17] MEDS: INSULIN LISPRO 100 UNIT/ML SUBCUT SCH ×5 (01:12→21:47)
[2017-08-17] MEDS: ALBUTEROL/IPRATROPIUM 3 ML NEB RESP TX SCH ×6 (03:16→22:41)
[2017-08-17] MEDS ORDERED: ENOXAPARIN 40 MG/0.4 ML SYRINGE SUBCUT SCH (06:00)
[2017-08-17] MEDS: VANCOMYCIN INJ 1,250 MG in SODIUM CHLORIDE 0.9% 250 ML IV SCH ×2 (06:03→17:43)
[2017-08-17 06:21] LABS: Basophils % 0.3 % (0.0-0.8); Eosinophils # 0.4 10*3/uL (0.0-0.87); Eosinophils % 4.9 % (0.00-10.9); Hemoglobin 8.9 GM/DL (12.0-16.0); Immature Granulocytes % 0.5 %; Immature Granulocytes Absolute 0.04 #; Lymphocytes # 1.8 10*3/uL (1.4-4.0); Mean Corpuscular Hemoglobin 27 PG (27-34); Mean Corpuscular Volume 81.8 FL (87-102); Mean Platelet Volume 9.6 FL (9.6-12.0); Monocytes # 0.7 10*3/uL (0.11-0.8); Monocytes % 8.2 % (1.7-12.7); Neutrophils # 5.1 10*3/uL (1.4-7.4); Neutrophils % 64.1 % (38.7-73.9); Platelet Count 266 T/CUMM (130-400); Red Cell Distribution Width 14.7 % (9.3-17.3)
[2017-08-17 06:48] LABS: Calcium 8.2 MG/DL (8.5-10.1); Osmolality,Calculated 282.4 MOS/KG (273-304); Potassium 4.1 MMOL/L (3.5-5.1)
[2017-08-17] MEDS ORDERED: INSULIN NPH 100 UNIT/ML SUBCUT SCH (09:00)
[2017-08-17] MEDS: glipiZIDE 5 MG TABLET PO SCH (09:07)
[2017-08-17] MEDS: MORPHINE 10 MG/1 ML VIAL IV PRN ×3 (11:00→11:10)
[2017-08-17] MEDS ORDERED: MORPHINE 10 MG/1 ML VIAL ONE (11:02)
[2017-08-17] MEDS ORDERED: ONDANSETRON 4 MG/2 ML VIAL ONE ×2 (11:02→11:06)
[2017-08-17] MEDS ORDERED: PHENYLEPHRINE 1 MG/10 ML SYRINGE IV ONE (11:06)
[2017-08-17] MEDS ORDERED: SEVOFLURANE 1 UNIT/15 MINUTE INH ONE (11:06)
[2017-08-17] MEDS ORDERED: PROPOFOL 200 MG/20 ML VIAL IV ONE (11:06)
[2017-08-17] MEDS ORDERED: fentaNYL 100 MCG/2 ML VIAL ONE (11:06)
[2017-08-17] MEDS ORDERED: DEXAMETHASONE 10 MG/1 ML VIAL ONE (11:06)
[2017-08-17] MEDS ORDERED: ETOMIDATE 40 MG/20 ML VIAL IV ONE (11:06)
[2017-08-17] MEDS ORDERED: ONDANSETRON 4 MG/2 ML VIAL IV PRN (11:09)
[2017-08-17] MEDS: PIPERACILLIN/TAZOBACTAM 3,375 MG in SODIUM CHLORIDE 0.9% 100 ML IV SCH ×3 (13:23→21:45)
[2017-08-17] MEDS: GABAPENTIN 100 MG CAPSULE PO SCH ×3 (14:58→21:46)
[2017-08-17] MEDS: MEMANTINE 5 MG TABLET PO SCH ×2 (15:07→21:46)
[2017-08-17] MEDS: amLODIPine 10 MG TABLET PO SCH (15:07)
[2017-08-17] MEDS: ISOSORBIDE MONONITRATE 60 MG TABLET PO SCH (15:09)
[2017-08-17] MEDS: POLYETHYLENE GLYCOL POWDER 17 GM PACK PO SCH (15:10)
[2017-08-17] MEDS: LOSARTAN 50 MG TABLET PO SCH (15:10)
[2017-08-17] MEDS: ASPIRIN EC 81 MG TABLET PO SCH (15:10)
[2017-08-17] MEDS: PANTOPRAZOLE 40 MG TABLET PO SCH (15:10)
[2017-08-17] MEDS: ATORVASTATIN 80 MG TABLET PO SCH (21:49)
[2017-08-18] MEDS: LACTATED RINGERS 1,000 ML IV SCH ×2 (01:17→13:52)
[2017-08-18] MEDS: ALBUTEROL/IPRATROPIUM 3 ML NEB RESP TX SCH ×6 (02:44→23:04)
[2017-08-18] MEDS: VANCOMYCIN INJ 1,250 MG in SODIUM CHLORIDE 0.9% 250 ML IV SCH (04:21)
[2017-08-18 06:18] LABS: Basophils % 0.1 % (0.0-0.8); Hematocrit 23.9 VOL% (35.7-47.0); Hemoglobin 7.7 GM/DL (12.0-16.0); Immature Granulocytes % 0.3 %; Immature Granulocytes Absolute 0.02 #; Lymphocytes # 0.9 10*3/uL (1.4-4.0); Lymphocytes % 12.6 % (21.3-54.2); Mean Corpuscular HGB Conc 32.2 GM/DL (32-36); Mean Corpuscular Hemoglobin 27 PG (27-34); Mean Corpuscular Volume 84.5 FL (87-102); Mean Platelet Volume 9.8 FL (9.6-12.0); Monocytes # 0.3 10*3/uL (0.11-0.8); Monocytes % 4.6 % (1.7-12.7); Neutrophils # 5.6 10*3/uL (1.4-7.4); Neutrophils % 82.4 % (38.7-73.9); Platelet Count 259 T/CUMM (130-400); Red Blood Count 2.83 MC/CUMM (3.8-5.5); Red Cell Distribution Width 14.4 % (9.3-17.3); White Blood Count 6.8 T/CUMM (4-12)
[2017-08-18] MEDS: PIPERACILLIN/TAZOBACTAM 3,375 MG in SODIUM CHLORIDE 0.9% 100 ML IV SCH ×3 (06:30→21:03)
[2017-08-18 06:50] LABS: Calcium 8.1 MG/DL (8.5-10.1); Osmolality,Calculated 290.7 MOS/KG (273-304); Potassium 4.5 MMOL/L (3.5-5.1)
[2017-08-18] MEDS: INSULIN LISPRO 100 UNIT/ML SUBCUT SCH ×4 (08:51→21:18)
[2017-08-18] MEDS: ISOSORBIDE MONONITRATE 60 MG TABLET PO SCH (08:53)
[2017-08-18] MEDS: amLODIPine 10 MG TABLET PO SCH (08:53)
[2017-08-18] MEDS: LOSARTAN 50 MG TABLET PO SCH (08:53)
[2017-08-18] MEDS: ASPIRIN EC 81 MG TABLET PO SCH (08:53)
[2017-08-18] MEDS: POLYETHYLENE GLYCOL POWDER 17 GM PACK PO SCH (08:54)
[2017-08-18] MEDS: glipiZIDE 5 MG TABLET PO SCH (08:54)
[2017-08-18] MEDS: MEMANTINE 5 MG TABLET PO SCH ×2 (08:54→21:18)
[2017-08-18] MEDS: GABAPENTIN 100 MG CAPSULE PO SCH ×3 (08:54→21:18)
[2017-08-18] MEDS: PANTOPRAZOLE 40 MG TABLET PO SCH (08:54)
[2017-08-18] MEDS: MORPHINE 4 MG/1 ML VIAL IV PRN ×2 (11:18→21:00)
[2017-08-18] MEDS: ATORVASTATIN 80 MG TABLET PO SCH (21:18)
[2017-08-19] MEDS: VANCOMYCIN INJ 1,250 MG in SODIUM CHLORIDE 0.9% 250 ML IV SCH ×2 (01:12→19:34)
[2017-08-19] MEDS: ALBUTEROL/IPRATROPIUM 3 ML NEB RESP TX SCH ×6 (02:48→23:45)
[2017-08-19] MEDS: PIPERACILLIN/TAZOBACTAM 3,375 MG in SODIUM CHLORIDE 0.9% 100 ML IV SCH ×3 (05:23→21:15)
[2017-08-19 05:41] LABS: Hemoglobin 6.9 GM/DL (12.0-16.0); Mean Corpuscular HGB Conc 32.9 GM/DL (32-36); Mean Corpuscular Hemoglobin 27 PG (27-34); Mean Corpuscular Volume 82.7 FL (87-102); Red Blood Count 2.54 MC/CUMM (3.8-5.5); Red Cell Distribution Width 14.8 % (9.3-17.3); White Blood Count 9.4 T/CUMM (4-12)
[2017-08-19 05:42] LABS: Basophils % 0.1 % (0.0-0.8); Eosinophils # 0.5 10*3/uL (0.0-0.87); Eosinophils % 5.1 % (0.00-10.9); Immature Granulocytes % 0.3 %; Immature Granulocytes Absolute 0.03 #; Lymphocytes # 3.2 10*3/uL (1.4-4.0); Lymphocytes % 33.6 % (21.3-54.2); Mean Platelet Volume 9.9 FL (9.6-12.0); Monocytes # 0.6 10*3/uL (0.11-0.8); Monocytes % 6.6 % (1.7-12.7); Neutrophils # 5.1 10*3/uL (1.4-7.4); Neutrophils % 54.3 % (38.7-73.9); Platelet Count 234 T/CUMM (130-400)
[2017-08-19] MEDS: GABAPENTIN 100 MG CAPSULE PO SCH ×3 (08:39→21:22)
[2017-08-19] MEDS: LOSARTAN 50 MG TABLET PO SCH (08:39)
[2017-08-19] MEDS: PANTOPRAZOLE 40 MG TABLET PO SCH (08:39)
[2017-08-19] MEDS: ISOSORBIDE MONONITRATE 60 MG TABLET PO SCH (08:39)
[2017-08-19] MEDS: MEMANTINE 5 MG TABLET PO SCH ×2 (08:39→21:22)
[2017-08-19] MEDS: glipiZIDE 5 MG TABLET PO SCH (08:39)
[2017-08-19] MEDS: INSULIN LISPRO 100 UNIT/ML SUBCUT SCH ×4 (08:40→21:24)
[2017-08-19] MEDS: POLYETHYLENE GLYCOL POWDER 17 GM PACK PO SCH (08:40)
[2017-08-19] MEDS: amLODIPine 10 MG TABLET PO SCH (08:40)
[2017-08-19] MEDS: ASPIRIN EC 81 MG TABLET PO SCH (08:40)
[2017-08-19] MEDS ORDERED: SODIUM CHLORIDE 0.9% 1,000 ML IV PRN (09:25)
[2017-08-19] MEDS: ATORVASTATIN 80 MG TABLET PO SCH (21:22)
[2017-08-20] MEDS: MORPHINE 4 MG/1 ML VIAL IV PRN (01:39)
[2017-08-20] MEDS: ALBUTEROL/IPRATROPIUM 3 ML NEB RESP TX SCH ×6 (03:53→23:35)
[2017-08-20] MEDS: LACTATED RINGERS 1,000 ML IV SCH ×3 (05:04→14:06)
[2017-08-20] MEDS: PIPERACILLIN/TAZOBACTAM 3,375 MG in SODIUM CHLORIDE 0.9% 100 ML IV SCH ×3 (05:05→22:44)
[2017-08-20 05:20] LABS: Basophils % 0.3 % (0.0-0.8); Eosinophils # 0.8 10*3/uL (0.0-0.87); Eosinophils % 7.4 % (0.00-10.9); Hematocrit 30.3 VOL% (35.7-47.0); Hemoglobin 10.3 GM/DL (12.0-16.0); Immature Granulocytes % 0.2 %; Immature Granulocytes Absolute 0.02 #; Lymphocytes # 2.9 10*3/uL (1.4-4.0); Lymphocytes % 28.1 % (21.3-54.2); Mean Corpuscular Hemoglobin 28 PG (27-34); Monocytes # 0.8 10*3/uL (0.11-0.8); Monocytes % 7.9 % (1.7-12.7); Neutrophils # 5.7 10*3/uL (1.4-7.4); Neutrophils % 56.1 % (38.7-73.9); Platelet Count 258 T/CUMM (130-400); Red Blood Count 3.74 MC/CUMM (3.8-5.5); White Blood Count 10.2 T/CUMM (4-12)
[2017-08-20] MEDS: INSULIN LISPRO 100 UNIT/ML SUBCUT SCH ×4 (07:55→20:47)
[2017-08-20] MEDS: POLYETHYLENE GLYCOL POWDER 17 GM PACK PO SCH (08:11)
[2017-08-20] MEDS: LOSARTAN 50 MG TABLET PO SCH (08:12)
[2017-08-20] MEDS: GABAPENTIN 100 MG CAPSULE PO SCH ×3 (08:12→20:03)
[2017-08-20] MEDS: MEMANTINE 5 MG TABLET PO SCH ×2 (08:12→20:03)
[2017-08-20] MEDS: ASPIRIN EC 81 MG TABLET PO SCH (08:12)
[2017-08-20] MEDS: glipiZIDE 5 MG TABLET PO SCH (08:13)
[2017-08-20] MEDS: ISOSORBIDE MONONITRATE 60 MG TABLET PO SCH (08:13)
[2017-08-20] MEDS: PANTOPRAZOLE 40 MG TABLET PO SCH (08:13)
[2017-08-20] MEDS: amLODIPine 10 MG TABLET PO SCH (08:13)
[2017-08-20] MEDS: VANCOMYCIN INJ 1,250 MG in SODIUM CHLORIDE 0.9% 250 ML IV SCH (12:45)
[2017-08-20] MEDS ORDERED: CALCIUM CARBONATE CHEW 500 MG TABLET PO PRN (17:47)
[2017-08-20] MEDS: ATORVASTATIN 80 MG TABLET PO SCH (20:03)
[2017-08-21] MEDS: ALBUTEROL/IPRATROPIUM 3 ML NEB RESP TX SCH ×5 (03:20→19:45)
[2017-08-21] MEDS: VANCOMYCIN INJ 1,250 MG in SODIUM CHLORIDE 0.9% 250 ML IV SCH (05:46)
[2017-08-21] MEDS: LACTATED RINGERS 1,000 ML IV SCH ×2 (05:47→08:54)
[2017-08-21] MEDS: INSULIN LISPRO 100 UNIT/ML SUBCUT SCH ×4 (07:54→21:17)
[2017-08-21] MEDS: ASPIRIN EC 81 MG TABLET PO SCH (08:51)
[2017-08-21] MEDS: GABAPENTIN 100 MG CAPSULE PO SCH ×3 (08:51→21:13)
[2017-08-21] MEDS: PANTOPRAZOLE 40 MG TABLET PO SCH (08:51)
[2017-08-21] MEDS: MEMANTINE 5 MG TABLET PO SCH ×2 (08:51→21:13)
[2017-08-21] MEDS: glipiZIDE 5 MG TABLET PO SCH (08:52)
[2017-08-21] MEDS: PIPERACILLIN/TAZOBACTAM 3,375 MG in SODIUM CHLORIDE 0.9% 100 ML IV SCH ×2 (08:52→15:35)
[2017-08-21] MEDS: LOSARTAN 50 MG TABLET PO SCH (08:52)
[2017-08-21] MEDS: ISOSORBIDE MONONITRATE 60 MG TABLET PO SCH (08:53)
[2017-08-21] MEDS: amLODIPine 10 MG TABLET PO SCH (08:54)
[2017-08-21] MEDS: POLYETHYLENE GLYCOL POWDER 17 GM PACK PO SCH (08:54)
[2017-08-21 17:53] LABS: Blood Urea Nitrogen 11 MG/DL (7-18); Calcium 8.3 MG/DL (8.5-10.1); Glucose 176 MG/DL (74-106); Osmolality,Calculated 281.4 MOS/KG (273-304); Potassium 3.7 MMOL/L (3.5-5.1); Sodium 140 MMOL/L (136-145); Troponin I Only 0.022 NG/ML (0.00-0.045)
[2017-08-21] MEDS: ATORVASTATIN 80 MG TABLET PO SCH (21:13)
[2017-08-22] MEDS: ALBUTEROL/IPRATROPIUM 3 ML NEB RESP TX SCH ×7 (00:02→23:21)
[2017-08-22] MEDS: VANCOMYCIN INJ 1,250 MG in SODIUM CHLORIDE 0.9% 250 ML IV SCH ×2 (04:47→09:13)
[2017-08-22 06:53] LABS: Calcium 8.2 MG/DL (8.5-10.1); Osmolality,Calculated 283.3 MOS/KG (273-304); Potassium 3.5 MMOL/L (3.5-5.1)
[2017-08-22] MEDS: ISOSORBIDE MONONITRATE 60 MG TABLET PO SCH (08:47)
[2017-08-22] MEDS: glipiZIDE 5 MG TABLET PO SCH (08:47)
[2017-08-22] MEDS: MEMANTINE 5 MG TABLET PO SCH ×2 (08:47→20:56)
[2017-08-22] MEDS: ASPIRIN EC 81 MG TABLET PO SCH (08:48)
[2017-08-22] MEDS: LOSARTAN 50 MG TABLET PO SCH (08:48)
[2017-08-22] MEDS: amLODIPine 10 MG TABLET PO SCH (08:48)
[2017-08-22] MEDS: GABAPENTIN 100 MG CAPSULE PO SCH ×3 (08:48→20:56)
[2017-08-22] MEDS: POLYETHYLENE GLYCOL POWDER 17 GM PACK PO SCH (08:51)
[2017-08-22] MEDS: INSULIN LISPRO 100 UNIT/ML SUBCUT SCH ×4 (08:53→21:03)
[2017-08-22] MEDS: PANTOPRAZOLE 40 MG TABLET PO SCH (09:13)
[2017-08-22] MEDS: LACTATED RINGERS 1,000 ML IV SCH (12:25)
[2017-08-22] MEDS: ATORVASTATIN 80 MG TABLET PO SCH (20:56)
[2017-08-22] MEDS: SERTRALINE 25 MG TABLET PO SCH (20:57)
[2017-08-23] MEDS: ALBUTEROL/IPRATROPIUM 3 ML NEB RESP TX SCH ×5 (02:10→19:53)
[2017-08-23 07:38] LABS: Calcium 8.3 MG/DL (8.5-10.1); Osmolality,Calculated 281.4 MOS/KG (273-304); Potassium 3.5 MMOL/L (3.5-5.1)
[2017-08-23] MEDS: POLYETHYLENE GLYCOL POWDER 17 GM PACK PO SCH (08:59)
[2017-08-23] MEDS: amLODIPine 10 MG TABLET PO SCH (08:59)
[2017-08-23] MEDS: glipiZIDE 5 MG TABLET PO SCH (08:59)
[2017-08-23] MEDS: GABAPENTIN 100 MG CAPSULE PO SCH ×3 (08:59→21:00)
[2017-08-23] MEDS: ASPIRIN EC 81 MG TABLET PO SCH (09:00)
[2017-08-23] MEDS: ISOSORBIDE MONONITRATE 60 MG TABLET PO SCH (09:00)
[2017-08-23] MEDS: LOSARTAN 50 MG TABLET PO SCH (09:00)
[2017-08-23] MEDS: MEMANTINE 5 MG TABLET PO SCH ×2 (09:00→21:01)
[2017-08-23] MEDS: INSULIN LISPRO 100 UNIT/ML SUBCUT SCH ×4 (09:00→21:01)
[2017-08-23] MEDS: PANTOPRAZOLE 40 MG TABLET PO SCH (09:00)
[2017-08-23] MEDS: VANCOMYCIN INJ 1,250 MG in SODIUM CHLORIDE 0.9% 250 ML IV SCH (09:03)
[2017-08-23] MEDS: ATORVASTATIN 80 MG TABLET PO SCH (21:01)
[2017-08-23] MEDS: SERTRALINE 25 MG TABLET PO SCH (21:01)
[2017-08-24] MEDS: ALBUTEROL/IPRATROPIUM 3 ML NEB RESP TX SCH ×7 (00:12→23:21)
[2017-08-24 07:32] LABS: Calcium 8.3 MG/DL (8.5-10.1); Osmolality,Calculated 287.1 MOS/KG (273-304); Potassium 3.6 MMOL/L (3.5-5.1)
[2017-08-24] MEDS: POLYETHYLENE GLYCOL POWDER 17 GM PACK PO SCH (08:49)
[2017-08-24] MEDS: ASPIRIN EC 81 MG TABLET PO SCH (08:52)
[2017-08-24] MEDS: GABAPENTIN 100 MG CAPSULE PO SCH ×3 (08:52→20:29)
[2017-08-24] MEDS: PANTOPRAZOLE 40 MG TABLET PO SCH (08:52)
[2017-08-24] MEDS: MEMANTINE 5 MG TABLET PO SCH ×2 (08:52→20:29)
[2017-08-24] MEDS: LOSARTAN 50 MG TABLET PO SCH (08:52)
[2017-08-24] MEDS: ISOSORBIDE MONONITRATE 60 MG TABLET PO SCH (08:52)
[2017-08-24] MEDS: glipiZIDE 5 MG TABLET PO SCH (08:52)
[2017-08-24] MEDS: INSULIN LISPRO 100 UNIT/ML SUBCUT SCH ×4 (08:53→20:29)
[2017-08-24] MEDS: amLODIPine 10 MG TABLET PO SCH (08:53)
[2017-08-24] MEDS: ACETAMINOPHEN 325 MG TABLET PO PRN (10:25)
[2017-08-24] MEDS: VANCOMYCIN INJ 1,250 MG in SODIUM CHLORIDE 0.9% 250 ML IV SCH (10:26)
[2017-08-24] MEDS ORDERED: BISACODYL 10 MG SUPP RECTAL PRN (17:48)
[2017-08-24] MEDS: SERTRALINE 25 MG TABLET PO SCH (20:28)
[2017-08-24] MEDS: ATORVASTATIN 80 MG TABLET PO SCH (20:29)
[2017-08-24] MEDS: MAGNESIUM HYDROXIDE SUSP 30 ML UDCUP PO PRN (20:54)
[2017-08-25] MEDS: ALBUTEROL/IPRATROPIUM 3 ML NEB RESP TX SCH ×5 (02:05→19:34)
[2017-08-25] MEDS: INSULIN LISPRO 100 UNIT/ML SUBCUT SCH ×3 (09:25→21:03)
[2017-08-25] MEDS: POLYETHYLENE GLYCOL POWDER 17 GM PACK PO SCH (09:25)
[2017-08-25] MEDS: LOSARTAN 50 MG TABLET PO SCH (09:26)
[2017-08-25] MEDS: amLODIPine 10 MG TABLET PO SCH (09:26)
[2017-08-25] MEDS: GABAPENTIN 100 MG CAPSULE PO SCH ×3 (09:26→21:03)
[2017-08-25] MEDS: ISOSORBIDE MONONITRATE 60 MG TABLET PO SCH (09:26)
[2017-08-25] MEDS: glipiZIDE 5 MG TABLET PO SCH (09:26)
[2017-08-25] MEDS: MEMANTINE 5 MG TABLET PO SCH ×2 (09:26→21:03)
[2017-08-25] MEDS: PANTOPRAZOLE 40 MG TABLET PO SCH (09:26)
[2017-08-25] MEDS: ASPIRIN EC 81 MG TABLET PO SCH (09:26)
[2017-08-25] MEDS: VANCOMYCIN INJ 1,250 MG in SODIUM CHLORIDE 0.9% 250 ML IV SCH (11:17)
[2017-08-25] MEDS: ATORVASTATIN 80 MG TABLET PO SCH (21:03)
[2017-08-25] MEDS: SERTRALINE 25 MG TABLET PO SCH (21:03)
[2017-08-26] MEDS: ALBUTEROL/IPRATROPIUM 3 ML NEB RESP TX SCH ×7 (00:11→23:47)
[2017-08-26 06:36] LABS: Hematocrit 30.3 VOL% (35.7-47.0); Hemoglobin 9.9 GM/DL (12.0-16.0); Red Blood Count 3.66 MC/CUMM (3.8-5.5); White Blood Count 7.3 T/CUMM (4-12)
[2017-08-26 06:37] LABS: Basophils % 0.4 % (0.0-0.8); Eosinophils # 0.4 10*3/uL (0.0-0.87); Eosinophils % 5.2 % (0.00-10.9); Immature Granulocytes % 0.3 %; Immature Granulocytes Absolute 0.02 #; Lymphocytes # 1.7 10*3/uL (1.4-4.0); Lymphocytes % 23.4 % (21.3-54.2); Mean Corpuscular HGB Conc 32.7 GM/DL (32-36); Mean Corpuscular Hemoglobin 27 PG (27-34); Mean Corpuscular Volume 82.8 FL (87-102); Mean Platelet Volume 9.8 FL (9.6-12.0); Monocytes # 0.7 10*3/uL (0.11-0.8); Monocytes % 9.9 % (1.7-12.7); Neutrophils # 4.4 10*3/uL (1.4-7.4); Neutrophils % 60.8 % (38.7-73.9); Platelet Count 258 T/CUMM (130-400)
[2017-08-26 07:06] LABS: Calcium 8.3 MG/DL (8.5-10.1); Osmolality,Calculated 282.5 MOS/KG (273-304); Potassium 3.8 MMOL/L (3.5-5.1)
[2017-08-26] MEDS: VANCOMYCIN INJ 1,250 MG in SODIUM CHLORIDE 0.9% 250 ML IV SCH (09:15)
[2017-08-26] MEDS: amLODIPine 10 MG TABLET PO SCH (09:16)
[2017-08-26] MEDS: MEMANTINE 5 MG TABLET PO SCH ×2 (09:16→20:53)
[2017-08-26] MEDS: ISOSORBIDE MONONITRATE 60 MG TABLET PO SCH (09:16)
[2017-08-26] MEDS: ASPIRIN EC 81 MG TABLET PO SCH (09:16)
[2017-08-26] MEDS: LOSARTAN 50 MG TABLET PO SCH (09:16)
[2017-08-26] MEDS: GABAPENTIN 100 MG CAPSULE PO SCH ×3 (09:17→20:51)
[2017-08-26] MEDS: glipiZIDE 5 MG TABLET PO SCH (09:17)
[2017-08-26] MEDS: INSULIN LISPRO 100 UNIT/ML SUBCUT SCH ×4 (09:17→20:51)
[2017-08-26] MEDS: POLYETHYLENE GLYCOL POWDER 17 GM PACK PO SCH (09:17)
[2017-08-26] MEDS: PANTOPRAZOLE 40 MG TABLET PO SCH (09:17)
[2017-08-26] MEDS: SERTRALINE 25 MG TABLET PO SCH (20:52)
[2017-08-26] MEDS: ATORVASTATIN 80 MG TABLET PO SCH (20:54)
[2017-08-27] MEDS: ALBUTEROL/IPRATROPIUM 3 ML NEB RESP TX SCH ×5 (03:18→19:05)
[2017-08-27 07:59] LABS: Basophils % 0.2 % (0.0-0.8); Eosinophils # 0.4 10*3/uL (0.0-0.87); Eosinophils % 3.9 % (0.00-10.9); Hematocrit 30.3 VOL% (35.7-47.0); Hemoglobin 10.3 GM/DL (12.0-16.0); Immature Granulocytes % 0.3 %; Immature Granulocytes Absolute 0.03 #; Lymphocytes # 1.7 10*3/uL (1.4-4.0); Lymphocytes % 18.3 % (21.3-54.2); Mean Corpuscular Hemoglobin 28 PG (27-34); Mean Corpuscular Volume 82.6 FL (87-102); Mean Platelet Volume 10.4 FL (9.6-12.0); Monocytes # 0.9 10*3/uL (0.11-0.8); Monocytes % 9.7 % (1.7-12.7); Neutrophils # 6.3 10*3/uL (1.4-7.4); Neutrophils % 67.6 % (38.7-73.9); Platelet Count 277 T/CUMM (130-400); Red Blood Count 3.67 MC/CUMM (3.8-5.5); Red Cell Distribution Width 14.7 % (9.3-17.3); White Blood Count 9.3 T/CUMM (4-12)
[2017-08-27 08:26] LABS: Calcium 8.5 MG/DL (8.5-10.1); Osmolality,Calculated 278.7 MOS/KG (273-304); Potassium 3.5 MMOL/L (3.5-5.1)
[2017-08-27] MEDS: VANCOMYCIN INJ 1,250 MG in SODIUM CHLORIDE 0.9% 250 ML IV SCH (09:35)
[2017-08-27] MEDS: INSULIN LISPRO 100 UNIT/ML SUBCUT SCH ×4 (09:37→20:13)
[2017-08-27] MEDS: amLODIPine 10 MG TABLET PO SCH (09:37)
[2017-08-27] MEDS: LOSARTAN 50 MG TABLET PO SCH (09:37)
[2017-08-27] MEDS: ISOSORBIDE MONONITRATE 60 MG TABLET PO SCH (09:37)
[2017-08-27] MEDS: MEMANTINE 5 MG TABLET PO SCH ×2 (09:37→20:13)
[2017-08-27] MEDS: PANTOPRAZOLE 40 MG TABLET PO SCH (09:37)
[2017-08-27] MEDS: ASPIRIN EC 81 MG TABLET PO SCH (09:37)
[2017-08-27] MEDS: GABAPENTIN 100 MG CAPSULE PO SCH ×3 (09:38→20:13)
[2017-08-27] MEDS: glipiZIDE 5 MG TABLET PO SCH (09:38)
[2017-08-27] MEDS: POLYETHYLENE GLYCOL POWDER 17 GM PACK PO SCH (09:42)
[2017-08-27] MEDS: SERTRALINE 25 MG TABLET PO SCH (20:13)
[2017-08-27] MEDS: ATORVASTATIN 80 MG TABLET PO SCH (20:13)
[2017-08-28] MEDS: ALBUTEROL/IPRATROPIUM 3 ML NEB RESP TX SCH ×7 (00:14→23:02)
[2017-08-28 06:24] LABS: Calcium 8.3 MG/DL (8.5-10.1); Osmolality,Calculated 278.5 MOS/KG (273-304); Potassium 3.6 MMOL/L (3.5-5.1)
[2017-08-28] MEDS: INSULIN LISPRO 100 UNIT/ML SUBCUT SCH ×4 (08:41→21:22)
[2017-08-28] MEDS: MEMANTINE 5 MG TABLET PO SCH ×2 (09:44→21:20)
[2017-08-28] MEDS: ASPIRIN EC 81 MG TABLET PO SCH (09:44)
[2017-08-28] MEDS: glipiZIDE 5 MG TABLET PO SCH (09:45)
[2017-08-28] MEDS: PANTOPRAZOLE 40 MG TABLET PO SCH (09:45)
[2017-08-28] MEDS: amLODIPine 10 MG TABLET PO SCH (09:45)
[2017-08-28] MEDS: LOSARTAN 50 MG TABLET PO SCH (09:46)
[2017-08-28] MEDS: ISOSORBIDE MONONITRATE 60 MG TABLET PO SCH (09:46)
[2017-08-28] MEDS: GABAPENTIN 100 MG CAPSULE PO SCH ×3 (09:47→21:20)
[2017-08-28] MEDS: POLYETHYLENE GLYCOL POWDER 17 GM PACK PO SCH (09:48)
[2017-08-28] MEDS: VANCOMYCIN INJ 1,250 MG in SODIUM CHLORIDE 0.9% 250 ML IV SCH (09:49)
[2017-08-28] MEDS: MAGNESIUM HYDROXIDE SUSP 30 ML UDCUP PO PRN (18:18)
[2017-08-28] MEDS: ATORVASTATIN 80 MG TABLET PO SCH (21:20)
[2017-08-28] MEDS: SERTRALINE 25 MG TABLET PO SCH (21:20)
[2017-08-29] MEDS: ALBUTEROL/IPRATROPIUM 3 ML NEB RESP TX SCH ×6 (02:29→23:33)
[2017-08-29 06:59] LABS: Calcium 8.5 MG/DL (8.5-10.1); Osmolality,Calculated 281.4 MOS/KG (273-304); Potassium 3.6 MMOL/L (3.5-5.1)
[2017-08-29] MEDS: INSULIN LISPRO 100 UNIT/ML SUBCUT SCH ×4 (07:54→21:28)
[2017-08-29] MEDS: ISOSORBIDE MONONITRATE 60 MG TABLET PO SCH (09:45)
[2017-08-29] MEDS: VANCOMYCIN INJ 1,250 MG in SODIUM CHLORIDE 0.9% 250 ML IV SCH (09:45)
[2017-08-29] MEDS: MAGNESIUM HYDROXIDE SUSP 30 ML UDCUP PO PRN (09:45)
[2017-08-29] MEDS: LOSARTAN 50 MG TABLET PO SCH (09:45)
[2017-08-29] MEDS: GABAPENTIN 100 MG CAPSULE PO SCH ×3 (09:45→20:47)
[2017-08-29] MEDS: amLODIPine 10 MG TABLET PO SCH (09:45)
[2017-08-29] MEDS: POLYETHYLENE GLYCOL POWDER 17 GM PACK PO SCH (09:45)
[2017-08-29] MEDS: PANTOPRAZOLE 40 MG TABLET PO SCH (09:46)
[2017-08-29] MEDS: ASPIRIN EC 81 MG TABLET PO SCH (09:46)
[2017-08-29] MEDS: glipiZIDE 5 MG TABLET PO SCH (09:46)
[2017-08-29] MEDS: MEMANTINE 5 MG TABLET PO SCH ×2 (09:46→20:46)
[2017-08-29] MEDS: SERTRALINE 25 MG TABLET PO SCH (20:46)
[2017-08-29] MEDS: ATORVASTATIN 80 MG TABLET PO SCH (20:47)
[2017-08-29] MEDS: ACETAMINOPHEN 325 MG TABLET PO PRN (22:58)
[2017-08-30] MEDS: ALBUTEROL/IPRATROPIUM 3 ML NEB RESP TX SCH ×5 (02:17→20:03)
[2017-08-30 07:37] LABS: Calcium 8.5 MG/DL (8.5-10.1); Osmolality,Calculated 275.7 MOS/KG (273-304); Potassium 3.5 MMOL/L (3.5-5.1)
[2017-08-30] MEDS: INSULIN LISPRO 100 UNIT/ML SUBCUT SCH ×4 (08:25→21:17)
[2017-08-30] MEDS: MEMANTINE 5 MG TABLET PO SCH ×2 (09:24→21:16)
[2017-08-30] MEDS: amLODIPine 10 MG TABLET PO SCH (09:24)
[2017-08-30] MEDS: ISOSORBIDE MONONITRATE 60 MG TABLET PO SCH (09:24)
[2017-08-30] MEDS: VANCOMYCIN INJ 1,250 MG in SODIUM CHLORIDE 0.9% 250 ML IV SCH (09:25)
[2017-08-30] MEDS: PANTOPRAZOLE 40 MG TABLET PO SCH (09:25)
[2017-08-30] MEDS: ASPIRIN EC 81 MG TABLET PO SCH (09:25)
[2017-08-30] MEDS: glipiZIDE 5 MG TABLET PO SCH (09:25)
[2017-08-30] MEDS: GABAPENTIN 100 MG CAPSULE PO SCH ×3 (09:25→21:17)
[2017-08-30] MEDS: POLYETHYLENE GLYCOL POWDER 17 GM PACK PO SCH (09:25)
[2017-08-30] MEDS: LOSARTAN 50 MG TABLET PO SCH (09:25)
[2017-08-30] MEDS: SERTRALINE 25 MG TABLET PO SCH (21:16)
[2017-08-30] MEDS: ATORVASTATIN 80 MG TABLET PO SCH (21:16)
[2017-08-31] MEDS: ALBUTEROL/IPRATROPIUM 3 ML NEB RESP TX SCH ×7 (00:25→23:53)
[2017-08-31 06:16] LABS: Basophils % 0.4 % (0.0-0.8); Eosinophils # 0.4 10*3/uL (0.0-0.87); Eosinophils % 5.8 % (0.00-10.9); Hematocrit 29.6 VOL% (35.7-47.0); Hemoglobin 9.6 GM/DL (12.0-16.0); Immature Granulocytes % 0.3 %; Immature Granulocytes Absolute 0.02 #; Lymphocytes # 2.2 10*3/uL (1.4-4.0); Lymphocytes % 28.3 % (21.3-54.2); Mean Corpuscular HGB Conc 32.4 GM/DL (32-36); Mean Corpuscular Hemoglobin 27 PG (27-34); Mean Corpuscular Volume 83.6 FL (87-102); Mean Platelet Volume 10.2 FL (9.6-12.0); Monocytes # 0.7 10*3/uL (0.11-0.8); Monocytes % 9.4 % (1.7-12.7); Neutrophils # 4.3 10*3/uL (1.4-7.4); Neutrophils % 55.8 % (38.7-73.9); Platelet Count 295 T/CUMM (130-400); Red Blood Count 3.54 MC/CUMM (3.8-5.5); Red Cell Distribution Width 14.4 % (9.3-17.3); White Blood Count 7.6 T/CUMM (4-12)
[2017-08-31 06:27] LABS: Calcium 8.3 MG/DL (8.5-10.1); Osmolality,Calculated 276.5 MOS/KG (273-304); Potassium 3.9 MMOL/L (3.5-5.1)
[2017-08-31 06:49] LABS: Amorphous Crystals,Urine Occasional /HPF (Few); Apearance,Urine CLOUDY (Clear); Bilirubin,Urine Negative (Negative); Blood, Urine Small mg/dL (Negative); Glucose,Urine (UA) Negative (Negative); Ketones,Urine Negative (Negative); Nitrite,Urine Negative (Negative); Protein,Urine Negative; RBC,Urine 4 /HPF (0-4); Urine Color Yellow (Yellow); Urine Specific Gravity 1.004 (1.001-1.035); Urine Urobilinogen < 2.0 EU/DL (0.2-1.0); WBC,Urine 208 /HPF (0-6)
[2017-08-31] MEDS: INSULIN LISPRO 100 UNIT/ML SUBCUT SCH ×4 (07:38→21:00)
[2017-08-31] MEDS: amLODIPine 10 MG TABLET PO SCH (08:03)
[2017-08-31] MEDS: LOSARTAN 50 MG TABLET PO SCH (08:03)
[2017-08-31] MEDS: ISOSORBIDE MONONITRATE 60 MG TABLET PO SCH (08:43)
[2017-08-31] MEDS: glipiZIDE 5 MG TABLET PO SCH (08:43)
[2017-08-31] MEDS: ASPIRIN EC 81 MG TABLET PO SCH (08:43)
[2017-08-31] MEDS: PANTOPRAZOLE 40 MG TABLET PO SCH (08:44)
[2017-08-31] MEDS: POLYETHYLENE GLYCOL POWDER 17 GM PACK PO SCH (08:44)
[2017-08-31] MEDS: MEMANTINE 5 MG TABLET PO SCH ×2 (08:44→21:02)
[2017-08-31] MEDS: GABAPENTIN 100 MG CAPSULE PO SCH ×3 (08:44→21:02)
[2017-08-31] MEDS: VANCOMYCIN INJ 1,250 MG in SODIUM CHLORIDE 0.9% 250 ML IV SCH (09:33)
[2017-08-31] MEDS ORDERED: MINERAL OIL (TOPICAL) 25 ML BOTTLE TOP ONE (11:28)
[2017-08-31] MEDS ORDERED: ONDANSETRON 4 MG/2 ML VIAL ONE (12:17)
[2017-08-31] MEDS ORDERED: fentaNYL 100 MCG/2 ML VIAL ONE (12:17)
[2017-08-31] MEDS ORDERED: SEVOFLURANE 1 UNIT/15 MINUTE INH ONE (12:17)
[2017-08-31] MEDS ORDERED: PHENYLEPHRINE 1 MG/10 ML SYRINGE IV ONE (12:17)
[2017-08-31] MEDS ORDERED: ACETAMINOPHEN 1,000 MG/100 ML VIAL IV ONE (12:17)
[2017-08-31] MEDS ORDERED: PROPOFOL 200 MG/20 ML VIAL IV ONE (12:17)
[2017-08-31] MEDS: PHENAZOPYRIDINE 95 MG TABLET PO SCH (16:13)
[2017-08-31] MEDS: SERTRALINE 25 MG TABLET PO SCH (21:02)
[2017-08-31] MEDS: ATORVASTATIN 80 MG TABLET PO SCH (21:02)
[2017-09-01] MEDS: ALBUTEROL/IPRATROPIUM 3 ML NEB RESP TX SCH ×5 (03:46→18:57)
[2017-09-01 06:28] LABS: Basophils % 0.6 % (0.0-0.8); Eosinophils # 0.5 10*3/uL (0.0-0.87); Eosinophils % 7.1 % (0.00-10.9); Hematocrit 31.2 VOL% (35.7-47.0); Hemoglobin 10.1 GM/DL (12.0-16.0); Immature Granulocytes % 0.3 %; Immature Granulocytes Absolute 0.02 #; Lymphocytes # 1.5 10*3/uL (1.4-4.0); Lymphocytes % 22.4 % (21.3-54.2); Mean Corpuscular HGB Conc 32.4 GM/DL (32-36); Mean Corpuscular Hemoglobin 27 PG (27-34); Mean Corpuscular Volume 84.1 FL (87-102); Monocytes # 0.7 10*3/uL (0.11-0.8); Monocytes % 10.6 % (1.7-12.7); Neutrophils # 4.1 10*3/uL (1.4-7.4); Platelet Count 289 T/CUMM (130-400); Red Blood Count 3.71 MC/CUMM (3.8-5.5); White Blood Count 6.9 T/CUMM (4-12)
[2017-09-01 06:56] LABS: Calcium 8.2 MG/DL (8.5-10.1); Osmolality,Calculated 281.5 MOS/KG (273-304)
[2017-09-01] MEDS: MEMANTINE 5 MG TABLET PO SCH ×2 (10:35→21:22)
[2017-09-01] MEDS: PHENAZOPYRIDINE 95 MG TABLET PO SCH ×2 (10:35→16:38)
[2017-09-01] MEDS: glipiZIDE 5 MG TABLET PO SCH (10:35)
[2017-09-01] MEDS: amLODIPine 10 MG TABLET PO SCH (10:36)
[2017-09-01] MEDS: LOSARTAN 50 MG TABLET PO SCH (10:36)
[2017-09-01] MEDS: GABAPENTIN 100 MG CAPSULE PO SCH ×3 (10:36→21:23)
[2017-09-01] MEDS: ISOSORBIDE MONONITRATE 60 MG TABLET PO SCH (10:37)
[2017-09-01] MEDS: ASPIRIN EC 81 MG TABLET PO SCH (10:37)
[2017-09-01] MEDS: PANTOPRAZOLE 40 MG TABLET PO SCH (10:37)
[2017-09-01] MEDS: INSULIN LISPRO 100 UNIT/ML SUBCUT SCH ×4 (10:57→21:00)
[2017-09-01] MEDS: POLYETHYLENE GLYCOL POWDER 17 GM PACK PO SCH (10:57)
[2017-09-01] MEDS: ATORVASTATIN 80 MG TABLET PO SCH (21:22)
[2017-09-01] MEDS: SERTRALINE 25 MG TABLET PO SCH (21:23)
[2017-09-01] MEDS: VANCOMYCIN INJ 1,250 MG in SODIUM CHLORIDE 0.9% 250 ML IV SCH (21:24)
[2017-09-02] MEDS: ALBUTEROL/IPRATROPIUM 3 ML NEB RESP TX SCH ×6 (00:24→20:00)
[2017-09-02 06:28] LABS: Calcium 8.3 MG/DL (8.5-10.1); Osmolality,Calculated 282.3 MOS/KG (273-304)
[2017-09-02] MEDS: INSULIN LISPRO 100 UNIT/ML SUBCUT SCH ×4 (09:01→22:03)
[2017-09-02] MEDS: ISOSORBIDE MONONITRATE 60 MG TABLET PO SCH (10:18)
[2017-09-02] MEDS: LOSARTAN 50 MG TABLET PO SCH (10:18)
[2017-09-02] MEDS: ASPIRIN EC 81 MG TABLET PO SCH (10:18)
[2017-09-02] MEDS: POLYETHYLENE GLYCOL POWDER 17 GM PACK PO SCH (10:18)
[2017-09-02] MEDS: PHENAZOPYRIDINE 95 MG TABLET PO SCH ×2 (10:19→16:36)
[2017-09-02] MEDS: MEMANTINE 5 MG TABLET PO SCH ×2 (10:19→22:02)
[2017-09-02] MEDS: GABAPENTIN 100 MG CAPSULE PO SCH ×3 (10:20→22:02)
[2017-09-02] MEDS: amLODIPine 10 MG TABLET PO SCH (10:20)
[2017-09-02] MEDS: PANTOPRAZOLE 40 MG TABLET PO SCH (10:20)
[2017-09-02] MEDS: glipiZIDE 5 MG TABLET PO SCH (10:20)
[2017-09-02] MEDS: ENOXAPARIN 40 MG/0.4 ML SYRINGE SUBCUT SCH (16:36)
[2017-09-02] MEDS: SERTRALINE 25 MG TABLET PO SCH (22:02)
[2017-09-02] MEDS: ATORVASTATIN 80 MG TABLET PO SCH (22:02)
[2017-09-03] MEDS: ALBUTEROL/IPRATROPIUM 3 ML NEB RESP TX SCH ×6 (00:07→19:20)
[2017-09-03] MEDS: ISOSORBIDE MONONITRATE 60 MG TABLET PO SCH (09:41)
[2017-09-03] MEDS: glipiZIDE 5 MG TABLET PO SCH (09:41)
[2017-09-03] MEDS: PHENAZOPYRIDINE 95 MG TABLET PO SCH ×2 (09:41→18:25)
[2017-09-03] MEDS: LOSARTAN 50 MG TABLET PO SCH (09:41)
[2017-09-03] MEDS: amLODIPine 10 MG TABLET PO SCH (09:41)
[2017-09-03] MEDS: GABAPENTIN 100 MG CAPSULE PO SCH ×3 (09:41→20:28)
[2017-09-03] MEDS: POLYETHYLENE GLYCOL POWDER 17 GM PACK PO SCH (09:42)
[2017-09-03] MEDS: VANCOMYCIN INJ 1,250 MG in SODIUM CHLORIDE 0.9% 250 ML IV SCH (09:42)
[2017-09-03] MEDS: MEMANTINE 5 MG TABLET PO SCH ×2 (09:42→20:28)
[2017-09-03] MEDS: ASPIRIN EC 81 MG TABLET PO SCH (09:42)
[2017-09-03] MEDS: PANTOPRAZOLE 40 MG TABLET PO SCH (09:42)
[2017-09-03] MEDS: INSULIN LISPRO 100 UNIT/ML SUBCUT SCH ×4 (09:48→20:28)
[2017-09-03] MEDS ORDERED: FLUCONAZOLE 150 MG TABLET PO ONE (11:00)
[2017-09-03] MEDS: ENOXAPARIN 40 MG/0.4 ML SYRINGE SUBCUT SCH (14:54)
[2017-09-03] MEDS: ATORVASTATIN 80 MG TABLET PO SCH (20:28)
[2017-09-03] MEDS: SERTRALINE 25 MG TABLET PO SCH (20:28)
[2017-09-04] MEDS: ALBUTEROL/IPRATROPIUM 3 ML NEB RESP TX SCH ×6 (01:12→23:00)
[2017-09-04] MEDS: amLODIPine 10 MG TABLET PO SCH (08:45)
[2017-09-04] MEDS: PHENAZOPYRIDINE 95 MG TABLET PO SCH ×2 (08:45→17:12)
[2017-09-04] MEDS: LOSARTAN 50 MG TABLET PO SCH (08:45)
[2017-09-04] MEDS: ISOSORBIDE MONONITRATE 60 MG TABLET PO SCH (08:45)
[2017-09-04] MEDS: PANTOPRAZOLE 40 MG TABLET PO SCH (08:45)
[2017-09-04] MEDS: MEMANTINE 5 MG TABLET PO SCH ×2 (08:45→22:22)
[2017-09-04] MEDS: INSULIN LISPRO 100 UNIT/ML SUBCUT SCH ×4 (08:46→22:23)
[2017-09-04] MEDS: glipiZIDE 5 MG TABLET PO SCH (08:46)
[2017-09-04] MEDS: GABAPENTIN 100 MG CAPSULE PO SCH ×3 (08:46→22:22)
[2017-09-04] MEDS: POLYETHYLENE GLYCOL POWDER 17 GM PACK PO SCH (08:46)
[2017-09-04] MEDS: ASPIRIN EC 81 MG TABLET PO SCH (08:46)
[2017-09-04] MEDS: ENOXAPARIN 40 MG/0.4 ML SYRINGE SUBCUT SCH (14:35)
[2017-09-04] MEDS: ATORVASTATIN 80 MG TABLET PO SCH (22:22)
[2017-09-04] MEDS: SERTRALINE 25 MG TABLET PO SCH (22:22)
[2017-09-05] MEDS: ALBUTEROL/IPRATROPIUM 3 ML NEB RESP TX SCH ×3 (03:10→11:02)
[2017-09-05] MEDS ORDERED: FLUCONAZOLE 200 MG TABLET PO ONE (08:43)
[2017-09-05] MEDS ORDERED: BACITRACIN OINT 0.9 GM PACK TOP SCH (09:00)
[2017-09-05] MEDS: glipiZIDE 5 MG TABLET PO SCH (10:08)
[2017-09-05] MEDS: ASPIRIN EC 81 MG TABLET PO SCH (10:08)
[2017-09-05] MEDS: ISOSORBIDE MONONITRATE 60 MG TABLET PO SCH (10:08)
[2017-09-05] MEDS: GABAPENTIN 100 MG CAPSULE PO SCH (10:08)
[2017-09-05] MEDS: PHENAZOPYRIDINE 95 MG TABLET PO SCH (10:09)
[2017-09-05] MEDS: LOSARTAN 50 MG TABLET PO SCH (10:09)
[2017-09-05] MEDS: amLODIPine 10 MG TABLET PO SCH (10:09)
[2017-09-05] MEDS: MEMANTINE 5 MG TABLET PO SCH (10:09)
[2017-09-05 13:52] VITALS: BP 141/68
== END 2017-09-05 13:35 | disposition home or self-care (01) | DRG 464 ==
LOC: N.5E 12:11
PROVIDERS: ADMIT Surgery; ATTEND Surgery

== ENCOUNTER 2018-02-01 13:09 | Observation (INO) ==
[2018-02-01] MEDS ORDERED: SODIUM CHLORIDE 0.9% 1,000 ML IV STA (13:56)
[2018-02-01 15:14] LABS: Basophils % 0.1 % (0.0-0.8); Eosinophils % 0.3 % (0.00-10.9); Hematocrit 37.6 VOL% (35.7-47.0); Hemoglobin 11.6 GM/DL (12.0-16.0); Immature Granulocytes % 0.4 %; Immature Granulocytes Absolute 0.04 #; Lymphocytes % 18.8 % (21.3-54.2); Mean Corpuscular HGB Conc 30.9 GM/DL (32-36); Mean Corpuscular Hemoglobin 26 PG (27-34); Mean Platelet Volume 9.7 FL (9.6-12.0); Monocytes # 0.4 10*3/uL (0.11-0.8); Monocytes % 3.7 % (1.7-12.7); Neutrophils # 8.1 10*3/uL (1.4-7.4); Neutrophils % 76.7 % (38.7-73.9); Platelet Count 351 T/CUMM (130-400); Red Blood Count 4.53 MC/CUMM (3.8-5.5); Red Cell Distribution Width 15.5 % (9.3-17.3); White Blood Count 10.5 T/CUMM (4-12)
[2018-02-01 15:30] LABS: Calcium 8.7 MG/DL (8.5-10.1); Osmolality,Calculated 279.5 MOS/KG (273-304); Potassium 3.7 MMOL/L (3.5-5.1)
[2018-02-01] MEDS ORDERED: LACTULOSE 20 GM/30 ML UDCUP PO PRN (16:53)
[2018-02-01] MEDS ORDERED: ONDANSETRON 4 MG/2 ML VIAL IV PRN (16:53)
[2018-02-01] MEDS ORDERED: ACETAMINOPHEN 325 MG TABLET PO PRN (16:53)
[2018-02-01] MEDS ORDERED: DEXTROSE 50% 25 GM/50 ML VIAL IV PRN (16:53)
[2018-02-01] MEDS ORDERED: SODIUM PHOSPHATE ENEMA 133 ML BOTTLE RECTAL PRN (16:53)
[2018-02-01] MEDS ORDERED: GLUCAGON 1 MG VIAL IM PRN (16:53)
[2018-02-01 17:19] LABS: Apearance,Urine Slightly Hazy (Clear); Bacteria,Urine Many /HPF (Few); Bilirubin,Urine Negative (Negative); Blood, Urine Large mg/dL (Negative); Glucose,Urine (UA) Negative (Negative); Hyaline Casts,Urine 2 /LPF (0-3); Ketones,Urine 5 mg/dL (Negative); Mucus,Urine Occasional /LPF (Occasional); Nitrite,Urine Positive (Negative); Protein,Urine Negative; RBC,Urine 84 /HPF (0-4); Urine Color Yellow (Yellow); Urine Specific Gravity 1.012 (1.001-1.035); Urine Urobilinogen < 2.0 EU/DL (0.2-1.0); WBC,Urine 19 /HPF (0-6)
[2018-02-01] MEDS ORDERED: ONDANSETRON ODT 4 MG TABLET PO PRN (19:45)
[2018-02-01] MEDS ORDERED: diphenhydrAMINE CAP 25 MG CAPSULE PO PRN (19:45)
[2018-02-01] MEDS ORDERED: ALBUTEROL/IPRATROPIUM 3 ML NEB RESP TX PRN (19:45)
[2018-02-01] MEDS: FAMOTIDINE 20 MG TABLET PO SCH (21:05)
[2018-02-01] MEDS: DOCUSATE SODIUM 100 MG CAPSULE PO SCH (21:06)
[2018-02-01] MEDS: ENOXAPARIN 40 MG/0.4 ML SYRINGE SUBCUT SCH (21:06)
[2018-02-01] MEDS: SERTRALINE 25 MG TABLET PO SCH (21:06)
[2018-02-01] MEDS: MEMANTINE 5 MG TABLET PO SCH (21:06)
[2018-02-01] MEDS: FERROUS SULFATE 325 MG TABLET PO SCH (21:06)
[2018-02-01] MEDS: cefTRIAXone 1,000 MG in SYRINGE 1 EACH IV SCH (21:07)
[2018-02-02] MEDS: HALOPERIDOL 5 MG/ML AMP IV PRN ×2 (00:45→21:17)
[2018-02-02] MEDS: INSULIN NPH 100 UNIT/ML SUBCUT SCH ×2 (02:22→10:36)
[2018-02-02 05:26] LABS: Basophils % 0.3 % (0.0-0.8); Eosinophils # 0.2 10*3/uL (0.0-0.87); Eosinophils % 2.2 % (0.00-10.9); Hematocrit 30.1 VOL% (35.7-47.0); Hemoglobin 9.5 GM/DL (12.0-16.0); Immature Granulocytes % 0.3 %; Immature Granulocytes Absolute 0.02 #; Lymphocytes # 1.5 10*3/uL (1.4-4.0); Lymphocytes % 19.3 % (21.3-54.2); Mean Corpuscular HGB Conc 31.6 GM/DL (32-36); Mean Corpuscular Hemoglobin 26 PG (27-34); Mean Corpuscular Volume 83.4 FL (87-102); Monocytes # 0.7 10*3/uL (0.11-0.8); Monocytes % 8.8 % (1.7-12.7); Neutrophils # 5.4 10*3/uL (1.4-7.4); Neutrophils % 69.1 % (38.7-73.9); Platelet Count 292 T/CUMM (130-400); Red Blood Count 3.61 MC/CUMM (3.8-5.5); Red Cell Distribution Width 15.3 % (9.3-17.3); White Blood Count 7.9 T/CUMM (4-12)
[2018-02-02 05:54] LABS: Calcium 8.2 MG/DL (8.5-10.1); Osmolality,Calculated 282.3 MOS/KG (273-304)
[2018-02-02] MEDS: amLODIPine 10 MG TABLET PO SCH (09:21)
[2018-02-02] MEDS: FAMOTIDINE 20 MG TABLET PO SCH ×2 (09:21→21:17)
[2018-02-02] MEDS: ASPIRIN EC 81 MG TABLET PO SCH (09:21)
[2018-02-02] MEDS: MEMANTINE 5 MG TABLET PO SCH ×2 (09:21→21:17)
[2018-02-02] MEDS: glipiZIDE 10 MG TABLET PO SCH (09:21)
[2018-02-02] MEDS: PANTOPRAZOLE 40 MG TABLET PO SCH (09:21)
[2018-02-02] MEDS: DOCUSATE SODIUM 100 MG CAPSULE PO SCH ×2 (09:21→21:17)
[2018-02-02] MEDS: FERROUS SULFATE 325 MG TABLET PO SCH ×2 (09:21→21:17)
[2018-02-02] MEDS: POTASSIUM CHLORIDE 20 MEQ TABLET PO PRN ×4 (14:26→20:50)
[2018-02-02] MEDS ORDERED: ZINC OXIDE PASTE 113 GM TUBE TOP PRN (17:24)
[2018-02-02] MEDS: cefTRIAXone 1,000 MG in SYRINGE 1 EACH IV SCH (21:08)
[2018-02-02] MEDS: SERTRALINE 25 MG TABLET PO SCH (21:17)
[2018-02-02] MEDS: ENOXAPARIN 40 MG/0.4 ML SYRINGE SUBCUT SCH (22:10)
[2018-02-03] MEDS: INSULIN NPH 100 UNIT/ML SUBCUT SCH ×3 (00:09→23:25)
[2018-02-03 04:53] LABS: Calcium 7.9 MG/DL (8.5-10.1); Osmolality,Calculated 279.3 MOS/KG (273-304); Potassium 3.6 MMOL/L (3.5-5.1)
[2018-02-03] MEDS: POTASSIUM CHLORIDE 20 MEQ TABLET PO PRN ×2 (08:13→16:38)
[2018-02-03] MEDS: MEMANTINE 5 MG TABLET PO SCH ×2 (08:13→22:45)
[2018-02-03] MEDS: ASPIRIN EC 81 MG TABLET PO SCH (08:13)
[2018-02-03] MEDS: FERROUS SULFATE 325 MG TABLET PO SCH ×2 (08:13→22:44)
[2018-02-03] MEDS: FAMOTIDINE 20 MG TABLET PO SCH ×2 (08:13→22:45)
[2018-02-03] MEDS: amLODIPine 10 MG TABLET PO SCH (08:13)
[2018-02-03] MEDS: DOCUSATE SODIUM 100 MG CAPSULE PO SCH ×2 (08:13→22:44)
[2018-02-03] MEDS: glipiZIDE 10 MG TABLET PO SCH (08:14)
[2018-02-03] MEDS: PANTOPRAZOLE 40 MG TABLET PO SCH (08:14)
[2018-02-03] MEDS ORDERED: GABAPENTIN 100 MG CAPSULE PO SCH (09:00)
[2018-02-03] MEDS: ENOXAPARIN 40 MG/0.4 ML SYRINGE SUBCUT SCH (22:44)
[2018-02-03] MEDS: cefTRIAXone 1,000 MG in SYRINGE 1 EACH IV SCH (22:45)
[2018-02-03] MEDS: SERTRALINE 25 MG TABLET PO SCH (22:45)
[2018-02-04] MEDS: FAMOTIDINE 20 MG TABLET PO SCH (08:12)
[2018-02-04] MEDS: ASPIRIN EC 81 MG TABLET PO SCH (08:12)
[2018-02-04] MEDS: amLODIPine 10 MG TABLET PO SCH (08:12)
[2018-02-04] MEDS: MEMANTINE 5 MG TABLET PO SCH (08:12)
[2018-02-04] MEDS: FERROUS SULFATE 325 MG TABLET PO SCH (08:12)
[2018-02-04] MEDS: glipiZIDE 10 MG TABLET PO SCH (08:13)
[2018-02-04] MEDS: DOCUSATE SODIUM 100 MG CAPSULE PO SCH (08:13)
[2018-02-04] MEDS: INSULIN NPH 100 UNIT/ML SUBCUT SCH (08:13)
[2018-02-04] MEDS: PANTOPRAZOLE 40 MG TABLET PO SCH (08:15)
[2018-02-04 08:28] VITALS: BP 151/88
== END 2018-02-04 15:00 | disposition home or self-care (01) ==
LOC: EDUNIT# → EDBD → N.EDINP 13:09 → N.ED 13:09 → N.5E 17:19
PROVIDERS: ADMIT Family Medicine; ATTEND Family Medicine